=== PATIENT | female | born 1995 | race African-American/Black ===

== ENCOUNTER 2018-10-23 12:46 | Inpatient (IN) | payer OTHER ==
--- NOTE | 2018-10-23 13:06 | PDOC ---
History of Present Illness - General Chief Complaint: Back Pain Stated Complaint: LEFT FLANK PAIN Time Seen by Provider: 10/23/18 13:04 - History of Present Illness Initial Comments: 10/23/18 14:00 HPI: 23 y/o F with recently diagnosed stage 4 breast cancer with pulmonary and bony mets presenting with 5 days of left flank and back pain. She reports starting her first chemo infusion 1 week ago and started having back pain 2 days after. It came on suddenly and was initially improved with the percocet 5 that was prescribed by her oncologist Dr Elise Yang from [facility], however, 2 days ago the pain progressed and was no longer controlled with increased frequency of pain meds. Pain is worse with movement and also has a pleuritic component. Pain is persistent and dull at baseline but becomes intermittently sharp. She reprots the pain is severely impacting her sleep and functionality. She also report having dysuria with burning on urination and dark colored urine. She reports chills, nausea, constipation, and a foggy headache attributed to "chemo brain." No fevers, emesis, chest pain, SOB, palpitations. PMHx: as noted above ROS: as noted SHx: Denies Etoh, IVDA, tobacco use Allergies: NKDA Past History - Past Medical History Allergies/Adverse Reactions: Allergies Allergy/AdvReac Type Severity Reaction Status Date / Time No Known Allergies Allergy Verified 10/23/18 12:53 Home Medications: Ambulatory Orders NK [No Known Home Medication] 10/23/18 Asthma: Yes Cancer: Yes (lt breast) Cardiac Disorders: No COPD: No Diabetes: No HTN: No Seizures: No Thyroid Disease: No - Reproductive History (#): 2 Para: 1 Therapeutic (s) & number: No Spontaneous : 0 - Suicide/Smoking/Psychosocial Hx Smoking Status: No Smoking History: Never smoked Have you smoked in the past 12 months: No Number of Cigarettes Smoked Daily: 6 Information on smoking cessation initiated: No 'Breaking Loose' booklet given: 05/27/15 Hx Alcohol Use: No Drug/Substance Use Hx: No Substance Use Type: None Hx Substance Use Treatment: No Review of Systems - Review of Systems Comments:: 10/23/18 14:17 GENERAL/CONSTITUTIONAL: +chills. HEAD, EYES, EARS, NOSE AND THROAT: No change in vision. No ear pain or discharge. No sore throat. CARDIOVASCULAR: No chest pain or shortness of breath RESPIRATORY: No cough, wheezing, or hemoptysis. GASTROINTESTINAL: +nausea, constipation. no vomiting, diarrhea GENITOURINARY: +dysuria MUSCULOSKELETAL: + back pain. SKIN: No rash NEUROLOGIC: No headache, vertigo, loss of consciousness, or change in strength/ sensation. ENDOCRINE: No increased thirst. No abnormal weight change HEMATOLOGIC/LYMPHATIC: No anemia, easy bleeding, or history of blood clots. ALLERGIC/IMMUNOLOGIC: No hives or skin allergy. *Physical Exam - Vital Signs Last Vital Signs Temp Pulse Resp BP Pulse Ox 98.1 F 68 18 110/59 L 95 10/23/18 12:54 10/23/18 12:54 10/23/18 12:54 10/23/18 12:54 10/23/18 12:54 - Physical Exam Comments: 10/23/18 14:18 GENERAL: Awake, alert, and fully oriented, in moderate distress and unable to sit comfortbaly due to pain HEAD: No signs of trauma, normocephalic, atraumatic EYES: EOMI, sclera anicteric, conjunctiva clear ENT: Auricles normal inspection, hearing grossly normal, nares patent, oropharynx clear without exudates. Moist mucosa NECK: Normal ROM, supple, no lymphadenopathy, JVD, or masses LUNGS: No distress, speaks full sentences, clear to auscultation bilaterally CHEST: Left breast is large and firm with area of skin breakdown at the 1oclock position, nontender HEART: Regular rate and rhythm, normal S1 and S2, no murmurs, rubs or gallops, peripheral pulses normal and equal bilaterally. ABDOMEN: Soft, nontender, normoactive bowel sounds. No guarding, no rebound. No masses. No CVA tenderness MSK : no spinal bony TTP, Normal inspection, Normal range of motion, no edema. No clubbing or cyanosis. NEUROLOGICAL: Cranial nerves II through XII grossly intact. Normal speech, normal gait, no focal sensorimotor deficits SKIN: Warm, Dry, normal turgor, no rashes or lesions noted ED Treatment Course - LABORATORY CBC & Chemistry Diagram: 10/23/18 14:00 10/23/18 14:00 Medical Decision Making - Medical Decision Making 10/23/18 14:20 23 y/o F with recently diagnosed stage 4 breast cancer (02/2018) with pulmonary and bony mets presenting with 5 days of left flank and back pain associated with burning on urination, dark urine, and pleuritic back pain. DDx includes UTI , pyelonephritis, PE, malignant effusion, PNA. -CBC, CMP, UA, UCx, trops, BNP -EKG, CXR, renal US -4mg morphine, IVF 10/23/18 18:09 UA with concern for infection Will treat empirically for pyelonephritis in setting of flank pain and burning on urination with 1g ceftriaxone [facility] made aware of patient admission for IV abx management Will continue to treat pain 10/23/18 18:[address] Carmella Bernabe; waiting for callback regarding admitting attending 10/23/18 19:19 Spoke to oncall oncology attending at [facility] Dr Burk; will plan to admit for iv abx for at least 48hrs *DC/Admit/Observation/Transfer Diagnosis at time of Disposition: Pyelonephritis - Discharge Dispostion Condition at time of disposition: Stable Decision to Admit order: Yes - Referrals - Patient Instructions - Post Discharge Activity
[2018-10-23] MEDS ORDERED: morphine CARPU-JECT 4 MG/1 ML DISP.SYRIN IVPUSH ONE ×2 (13:44→17:38)
[2018-10-23] MEDS ORDERED: SODIUM CHLORIDE 1,000 ML IV STA (13:44)
[2018-10-23] MEDS ORDERED: morphine SULFATE 4 MG/ML VIAL ONE ×2 (14:14→17:47)
[2018-10-23 14:19] LABS: BASO % 0.3 % (0-2.0); EOS % 0.8 % (0-4.5); HEMATOCRIT 29.4 % (32.4-45.2); HEMOGLOBIN 10.1 GM/dL (10.7-15.3); LYMPH % 26.7 % (8-40); MCH 27.3 pg (25.7-33.7); MCHC 34.4 g/dl (32.0-36.0); MEAN CELL VOLUME 79.3 fl (80-96); MEAN PLT VOLUME 6.4 fl (7.5-11.1); MONO % 6.2 % (3.8-10.2); PLATELET COUNT 183 K/MM3 (134-434); RBC 3.71 M/mm3 (3.60-5.2); RDW 12.8 % (11.6-15.6); WHITE BLOOD COUNT 2.7 K/mm3 (4.0-10.0)
[2018-10-23 14:50] LABS: ALBUMIN 3.6 g/dl (3.4-5.0); ALK PHOS 307 U/L (45-117); ANION GAP 9 MMOL/L (8-16); BILIRUBIN,TOTAL 0.7 mg/dL (0.2-1); BLOOD UREA NITROGEN 10.7 mg/dL (7-18); CALCIUM 7.8 mg/dL (8.5-10.1); CHLORIDE 101 mmol/L (98-107); CO2 28 mmol/L (21-32); CREATININE 0.7 mg/dL (0.55-1.3); GLUCOSE,RANDOM 84 mg/dL (74-106); POTASSIUM 3.2 mmol/L (3.5-5.1); SGOT/AST 69 U/L (15-37); SGPT/ALT 61 U/L (13-61); SODIUM 138 mmol/L (136-145); TOT PROT 7.7 g/dl (6.4-8.2)
--- NOTE | 2018-10-23 15:13 | PDOC ---
Documentation entered by María Pendleton SCRIBE, acting as scribe for Juno Diego MD. Juno Diego MD: This documentation has been prepared by the Keerthi foster Brenda, SCRIBE, under my direction and personally reviewed by me in its entirety. I confirm that the documentation accurately reflects all work, treatment, procedures, and medical decision making performed by me. Attending Attestation - Resident Resident Name: JairoAdela - ED Attending Attestation I have performed the following: I have examined & evaluated the patient, The case was reviewed & discussed with the resident, I agree w/resident's findings & plan, Exceptions are as noted - HPI HPI: 10/23/18 14:41 The patient is a 23 year old female (), with a significant PMH of asthma and stage breast cancer with mets, who presents to the emergency department with severe left back/flank pain since Friday (10/19/18). As per patient, the pain was initially manageable while taking percocets accompanied by advil, given by oncologist, but notes that since Friday (10/21/18), the pain has been unbearable. She also notes that her pain is currently at a 6/10. But has reached 10/10 while at home. She also endorses dysuria and nausea, accompanied with heat flashes. The patient denies chest pain, shortness of breath, headache and dizziness. Denies fever, vomiting, diarrhea and constipation. Denies frequency, urgency and hematuria. Allergies: NKA Past surgical history: x2. PCP: Sherry Holguin M - Physicial Exam PE: 10/23/18 14:25 GENERAL: Awake, alert, and fully oriented, in no acute distress HEAD: No signs of trauma EYES: PERRLA, EOMI, sclera anicteric, conjunctiva clear ENT: Auricles normal inspection, hearing grossly normal, nares patent. Moist mucosa NECK: Normal ROM, supple, no lymphadenopathy, JVD, or masses LUNGS: Breath sounds equal, clear to auscultation bilaterally. No wheezes, and no crackles HEART: Regular rate and rhythm, normal S1 and S2, no murmurs, rubs or gallops ABDOMEN: (+)Left CVA tenderness to palpation. Soft, normoactive bowel sounds. No guarding, no rebound. No masses EXTREMITIES: Normal range of motion, no edema. No clubbing or cyanosis. No cords, erythema, or tenderness NEUROLOGICAL: Cranial nerves II through XII grossly intact. Normal speech, normal gait SKIN: Warm, Dry, normal turgor, no rashes or lesions noted. - Medical Decision Making 10/23/18 15:09 A portion of this note was written by my scribe, under my supervision. Vital Signs Temp Pulse Resp BP Pulse Ox 98.1 F 68 18 110/59 L 95 10/23/18 12:54 10/23/18 12:54 10/23/18 12:54 10/23/18 12:54 10/23/18 12:54 23 year old female with metastatic L breast cancer p/w left flank pain. Pt recently diagnosed with breast cancer and under treatment at [facility] Last week, received 1st dose of IV chemotherapy. Was supposed to be due to 2nd dose of IV chemotherapy. However, noted yesterday to today of worsening L flank pain as well as several days of dysuria. No fevers, chills. No nausea, vomiting, diarrhea. I am concerned for pyelonephritis, particularly in setting of recent chemotherapy. However, will need UA, PGU. If UA demonstrates no infection, should consider pulmonary embolism, particularly in setting of incomplete RBBB. Pain control and reassess. 10/23/18 19:13 CBC, BMP 10/23/18 14:00 10/23/18 14:00 CMP Sodium 138 mmol/L (136-145) 10/23/18 14:00 Potassium 3.2 mmol/L (3.5-5.1) L 10/23/18 14:00 Chloride 101 mmol/L (98-107) 10/23/18 14:00 Carbon Dioxide 28 mmol/L (21-32) 10/23/18 14:00 Anion Gap 9 MMOL/L (8-16) 10/23/18 14:00 BUN 10.7 mg/dL (7-18) 10/23/18 14:00 Creatinine 0.7 mg/dL (0.55-1.3) 10/23/18 14:00 Est GFR (CKD-EPI)AfAm 139.57 10/23/18 14:00 Est GFR (CKD-EPI)NonAf 120.42 10/23/18 14:00 Random Glucose 84 mg/dL (74-106) 10/23/18 14:00 Calcium 7.8 mg/dL (8.5-10.1) L 10/23/18 14:00 Total Bilirubin 0.7 mg/dL (0.2-1) 10/23/18 14:00 AST 69 U/L (15-37) H 10/23/18 14:00 ALT 61 U/L (13-61) 10/23/18 14:00 Alkaline Phosphatase 307 U/L (45-117) H 10/23/18 14:00 Troponin I < 0.02 ng/ml (0.00-0.05) 10/23/18 14:00 B-Natriuretic Peptide 33.6 pg/ml (5-125) 10/23/18 14:00 Total Protein 7.7 g/dl (6.4-8.2) 10/23/18 14:00 Albumin 3.6 g/dl (3.4-5.0) 10/23/18 14:00 Urine Test Results Urine Color Dk yellow 10/23/18 15:53 Urine Appearance Clear 10/23/18 15:53 Urine pH 6.5 (5.0-8.0) 10/23/18 15:53 Ur Specific [place] 1.024 (1.010-1.035) 10/23/18 15:53 Urine Protein 1+ (NEGATIVE) H 10/23/18 15:53 Urine Glucose (UA) Negative (NEGATIVE) 10/23/18 15:53 Urine Ketones 2+ (NEGATIVE) H 10/23/18 15:53 Urine Blood Negative (NEGATIVE) 10/23/18 15:53 Urine Nitrite Negative (NEGATIVE) 10/23/18 15:53 Urine Bilirubin 1+ (NEGATIVE) H 10/23/18 15:53 Ur Leukocyte Esterase 1+ (NEGATIVE) H 10/23/18 15:53 Ua positive. Will treat as pylenoephritis. Blood cultures and urine cultures. Ceftriaxone ordered. Case discussed with [facility] Dr. Burk. She states that patient does not need to be transferred. Will likely need 48 hours of IV antibiotics then switch to PO antibiotics and follow up as an outpatient to [facility]. 10/23/18 19:58 Admit patient. Heart Score/ECG Review #1 ECG reviewed & interpreted by me at: 14:10 10/23/18 15:09 NSR 58, no std/rodrigo, normal axis, normal intervals, incomplete RBBB, QTC 433 msec , nonspecific T wave abnormality.
[2018-10-23 17:19] LABS: URINE APPEARANCE CLEAR; URINE COLOR DK YELLOW; URINE GLUCOSE (UA) NEGATIVE (NEGATIVE)
[2018-10-23 17:20] LABS: URINE KETONE 2+ (NEGATIVE)
[2018-10-23 17:21] LABS: EPI CELLS 0.6 /HPF (0-5/HPF); PH,URINE 6.5 (5.0-8.0); URINE BACTERIA 63.3 /hpf (NEGATIVE); URINE LEUK ESTERASE 1+ (NEGATIVE); URINE NITRITE NEGATIVE (NEGATIVE); URINE PROTEIN 1+ (NEGATIVE); URINE RBC 5.1 /hpf (0-4); URINE UROBILINOGEN 4.0 E.U/dl mg/dL (0.2-1.0); URINE WBC 30.5 /hpf (0-5)
[2018-10-23 17:22] LABS: URINE BILIRUBIN 1+ (NEGATIVE)
[2018-10-23] MEDS ORDERED: CEFTRIAXONE 1 GM in DEXTROSE 5%-WATER - 100 ML IVPB ONE (19:29)
[2018-10-23] MEDS ORDERED: CEFTRIAXONE 1 GM/50 ML BAG ONE (19:35)
[2018-10-23] MEDS ORDERED: ACETAMINOPHEN 1000 MG/100 ML VIAL (NON FORMULARY) IVPB ONE (19:38)
[2018-10-23] MEDS ORDERED: KETOROLAC TROMETHAMINE 15 MG/ML VIAL IVPUSH ONE (19:38)
[2018-10-23] MEDS ORDERED: ACETAMINOPHEN INJECTION 100 ML IVPB ONE (19:45)
[2018-10-23] MEDS ORDERED: KETOROLAC TROMETHAMINE 15 MG/ML VIAL ONE (19:45)
[2018-10-23] MEDS: SODIUM CHLORIDE 1,000 ML IV SCH (20:30)
[2018-10-23] MEDS ORDERED: POTASSIUM CHLORIDE TABS 20 MEQ TABLET.ER (FP) PO ONE (23:03)
--- NOTE | 2018-10-23 23:31 | HP ---
CHIEF COMPLAINT: L back / flank pain PCP: HISTORY OF PRESENT ILLNESS: 23 yo F PMH asthma, recent diagnosis of breast ca ( 02/2018)with mets to bone presents to the ED with L sided back pain. The pt states this pain began on Friday. Since friday, she has been trying to aleviate the pain with percocet ( from her oncologist) and advil. This helped the pain initially, but pain continued to worsen. The pt states that the pain is sharp and feels like someone is "clawing " her back. The pt states that the pain gets worse when she moves. The pt states that she also has dysuria and has noticed hematuria since Friday. Pt states that she had her first chemotherapy last friday. she was supposed to have her second chemotherapy today, friday but was unable to go. Pt goes to [facility] for her cancer management and follows up with Dr. Clemente. The pt states she also endorses nausea, but has been taking ondansetron which helps her. ER course was notable for: (1) renal u/s negative for renal calculus / hydronephrosis (2) + UA (3)empiric ceftriaxone Recent Travel: denies PAST MEDICAL HISTORY: asthma, breast ca w/ metastasis PAST SURGICAL HISTORY: Social History: Smoking: Alcohol: Drugs: Family History: Paternal Grandmother had breast ca Allergies No Known Allergies Allergy (Verified 10/23/18 12:53) HOME MEDICATIONS: Home Medications Medication Instructions Recorded NK [No Known Home Medication] 10/23/18 REVIEW OF SYSTEMS CONSTITUTIONAL: Present: 5 pound weight gain Absent: fever, chills, diaphoresis, generalized weakness, malaise, loss of appetite, weight change HEENT: Absent: rhinorrhea, nasal congestion, throat pain, throat swelling, difficulty swallowing, mouth swelling, ear pain, eye pain, visual changes CARDIOVASCULAR: Present: lightheadedness Absent: chest pain, syncope, palpitations, irregular heart rate, peripheral edema RESPIRATORY: Absent: cough, shortness of breath, dyspnea with exertion, orthopnea, wheezing, stridor, hemoptysis GASTROINTESTINAL: Present: nausea Absent: abdominal pain, abdominal distension, vomiting, diarrhea, constipation , melena, hematochezia GENITOURINARY: Present: dysuria, hematuria, flank pain Absent: frequency, urgency, hesitancy, genital pain MUSCULOSKELETAL: Present: back pain Absent: myalgia, arthralgia, joint swelling, neck pain SKIN: Absent: rash, itching, pallor HEMATOLOGIC/IMMUNOLOGIC: Absent: easy bleeding, easy bruising, lymphadenopathy, frequent infections ENDOCRINE: Absent: unexplained weight gain, unexplained weight loss, heat intolerance, cold intolerance NEUROLOGIC: Absent: headache, focal weakness or paresthesias, dizziness, unsteady gait, seizure, mental status changes, bladder or bowel incontinence PSYCHIATRIC: Absent: anxiety, depression, suicidal or homicidal ideation, hallucinations. PHYSICAL EXAMINATION Vital Signs - 24 hr 10/23/18 10/23/18 10/23/18 12:54 19:00 21:21 Temperature 98.1 F 98.7 F Pulse Rate 68 Pulse Rate [ 76 65 Apical] Respiratory 18 18 Rate Blood Pressure 110/59 L Blood Pressure 124/64 107/65 [Right Arm] O2 Sat by Pulse 95 100 98 Oximetry (%) GENERAL: Awake, alert, and fully oriented, in no acute distress. HEAD: Normal with no signs of trauma. EYES: Pupils equal, round and reactive to light, extraocular movements intact, sclera anicteric, conjunctiva clear. No lid lag. EARS, NOSE, THROAT: oropharynx clear without exudates. Moist mucous membranes. NECK: Normal range of motion, supple without lymphadenopathy, JVD, or masses. LUNGS: Breath sounds equal, clear to auscultation bilaterally. No wheezes, and no crackles. No accessory muscle use. HEART: Regular rate and rhythm, normal S1 and S2, + murmur, rub or gallop. ABDOMEN: Soft, nontender, not distended, normoactive bowel sounds, no guarding, no rebound, no masses. MUSCULOSKELETAL: Normal range of motion at all joints. No bony deformities or tenderness. L CVA tenderness. UPPER EXTREMITIES: 2+ pulses, warm, well-perfused. No cyanosis. No clubbing. No peripheral edema. LOWER EXTREMITIES: 2+ pulses, warm, well-perfused. No calf tenderness. No peripheral edema. NEUROLOGICAL: Cranial nerves II-XII intact. Normal speech. Normal gait. SKIN: Warm, dry, normal turgor, no rashes or lesions noted Laboratory Last Values WBC 2.7 K/mm3 (4.0-10.0) L 10/23/18 14:00 RBC 3.71 M/mm3 (3.60-5.2) 10/23/18 14:00 Hgb 10.1 GM/dL (10.7-15.3) L 10/23/18 14:00 Hct 29.4 % (32.4-45.2) L D 10/23/18 14:00 MCV 79.3 fl (80-96) L 10/23/18 14:00 MCH 27.3 pg (25.7-33.7) 10/23/18 14:00 MCHC 34.4 g/dl (32.0-36.0) 10/23/18 14:00 RDW 12.8 % (11.6-15.6) D 10/23/18 14:00 Plt Count 183 K/MM3 (134-434) D 10/23/18 14:00 MPV 6.4 fl (7.5-11.1) L D 10/23/18 14:00 Absolute Neuts (auto) 1.8 K/mm3 (1.5-8.0) 10/23/18 14:00 Neutrophils % 66.0 % (42.8-82.8) 10/23/18 14:00 Lymphocytes % 26.7 % (8-40) 10/23/18 14:00 Monocytes % 6.2 % (3.8-10.2) 10/23/18 14:00 Eosinophils % 0.8 % (0-4.5) 10/23/18 14:00 Basophils % 0.3 % (0-2.0) 10/23/18 14:00 Nucleated RBC % 0 % (0-0) 10/23/18 14:00 Sodium 138 mmol/L (136-145) 10/23/18 14:00 Potassium 3.2 mmol/L (3.5-5.1) L 10/23/18 14:00 Chloride 101 mmol/L (98-107) 10/23/18 14:00 Carbon Dioxide 28 mmol/L (21-32) 10/23/18 14:00 Anion Gap 9 MMOL/L (8-16) 10/23/18 14:00 BUN 10.7 mg/dL (7-18) 10/23/18 14:00 Creatinine 0.7 mg/dL (0.55-1.3) 10/23/18 14:00 Est GFR (CKD-EPI)AfAm 139.57 10/23/18 14:00 Est GFR (CKD-EPI)NonAf 120.42 10/23/18 14:00 Random Glucose 84 mg/dL (74-106) 10/23/18 14:00 Calcium 7.8 mg/dL (8.5-10.1) L 10/23/18 14:00 Total Bilirubin 0.7 mg/dL (0.2-1) 10/23/18 14:00 AST 69 U/L (15-37) H 10/23/18 14:00 ALT 61 U/L (13-61) 10/23/18 14:00 Alkaline Phosphatase 307 U/L (45-117) H 10/23/18 14:00 Troponin I < 0.02 ng/ml (0.00-0.05) 10/23/18 14:00 B-Natriuretic Peptide 33.6 pg/ml (5-125) 10/23/18 14:00 Total Protein 7.7 g/dl (6.4-8.2) 10/23/18 14:00 Albumin 3.6 g/dl (3.4-5.0) 10/23/18 14:00 Urine Color Dk yellow 10/23/18 15:53 Urine Appearance Clear 10/23/18 15:53 Urine pH 6.5 (5.0-8.0) 10/23/18 15:53 Ur Specific [place] 1.024 (1.010-1.035) 10/23/18 15:53 Urine Protein 1+ (NEGATIVE) H 10/23/18 15:53 Urine Glucose (UA) Negative (NEGATIVE) 10/23/18 15:53 Urine Ketones 2+ (NEGATIVE) H 10/23/18 15:53 Urine Blood Negative (NEGATIVE) 10/23/18 15:53 Urine Nitrite Negative (NEGATIVE) 10/23/18 15:53 Urine Bilirubin 1+ (NEGATIVE) H 10/23/18 15:53 Urine Urobilinogen 4.0 e.u/dl mg/dL (0.2-1.0) H 10/23/18 15:53 Ur Leukocyte Esterase 1+ (NEGATIVE) H 10/23/18 15:53 Urine WBC (Auto) 30.5 /hpf (0-5) 10/23/18 15:53 Urine RBC (Auto) 5.1 /hpf (0-4) 10/23/18 15:53 Urine Casts (Auto) 19.20 /lpf (0-8) 10/23/18 15:53 U Epithel Cells (Auto) 0.6 /HPF (0-5/HPF) 10/23/18 15:53 Urine Bacteria (Auto) 63.3 /hpf (NEGATIVE) 10/23/18 15:53 Urine HCG, Qual Negative 10/23/18 15:17 CXR: 2 views of the chest have been submitted. There is evidence of a left effusion and left infiltrate. The left upper lobe and right lung are clear. The mediastinum is not widened. The bones and soft tissues are intact. Follow-up recommended. ASSESSMENT/PLAN: 23 yo F PMH of asthma and breast ca with mets presenting to ED w/ L sided flank pain, dysuria, and hematuria. Pt is admitted for pyelonephritis. L Flank pain possibly 2/2 Pylenonephritis vs bony mets -Pt endorses pain in L scapular region. - (+) UA -awaiting U Cx -CXRay: see above -awaiting CT chest -no leukocytosis, pt afebrile -c/w ceftriaxone -c/w IVF -Alk phos elevated 307, may be 2/2 bone mets -morphine for pain -Renal U/S negative for renal calculus or hydronephrosis Breast Ca -pt receiving Chemotherapy , last dose Friday last week. missed dose today -pt should f/[place] [facility]pt takes ondansetron at home, c/w for nausea F/E/N -NS 100mls /hr -Regular diet DVT ppx: Lovenox Dispo: admit to medicine floors to monitor Visit type - Emergency Visit Emergency Visit: Yes ED Registration Date: 10/23/18 Care time: The patient presented to the Emergency Department on the above date and was hospitalized for further evaluation of their emergent condition. - New Patient This patient is new to me today: Yes Date on this admission: 10/24/18 - Critical Care Critical Care patient: No ATTENDING PHYSICIAN STATEMENT I saw and evaluated the patient. I reviewed the resident's note and discussed the case with the resident. I agree with the resident's findings and plan as documented. SUBJECTIVE: OBJECTIVE: ASSESSMENT AND PLAN:
[2018-10-24] MEDS ORDERED: KETOROLAC TROMETHAMINE 10 MG TABLET PO SCH
--- NOTE | 2018-10-24 00:18 | PN ---
Teaching Attending Note Name of Resident: Nancie Cloud ATTENDING PHYSICIAN STATEMENT I saw and evaluated the patient. Chart, data, imaging reviewed. I reviewed the resident's note and discussed the case with the resident. I agree with the resident's findings and plan as documented. SUBJECTIVE: 23 yo woman with breast ca w/ bony mets diagnosed 03/17, [place] [facility] [place] first chemo last week, c/o left subscapular pain worse with inspiration, dysuria since this past friday. OBJECTIVE: Last Vital Signs Temp Pulse Resp BP Pulse Ox 98.7 F 65 18 107/65 98 10/23/18 21:21 10/23/18 21:21 10/23/18 19:00 10/23/18 21:21 10/23/18 21:21 gen- nad, aaox3 heent- at, nc neck supple cor-s1+s2+rrr chest -decreased breath sounds at left base abd- soft Abnormal Lab Results 10/23/18 10/23/18 10/23/18 14:00 14:00 15:53 WBC 2.7 L Hgb 10.1 L Hct 29.4 L D MCV 79.3 L MPV 6.4 L D Potassium 3.2 L Calcium 7.8 L AST 69 H Alkaline Phosphatase 307 H Urine Protein 1+ H Urine Ketones 2+ H Urine Bilirubin 1+ H Urine Urobilinogen 4.0 e.u/dl H Ur Leukocyte Esterase 1+ H cxr showed left pleural effusion ASSESSMENT AND PLAN: 23yo woman with breast cancer with bony mets s/p first round of chemo last week , w/ left subscapular pleuritic pain - I suspect this is secondary to underlying mets. Doubt pyelo as no CVA tenderness, however probable cystitis. Left pleural effusion likely from underlying malignancy. I suspect her leukopenia, anemia are secondary to malignancy/chemo. -med/surg -control pain- toradol+ morphine IV prn -urine culture -ceftriaxone -chest ct -ekg -obtain medical records from [facility] -dvt ppx- enoxaparin sc
[2018-10-24] MEDS ORDERED: KETOROLAC TROMETHAMINE 10 MG TABLET PO PRN (00:32)
[2018-10-24] MEDS: SODIUM CHLORIDE 1,000 ML IV SCH ×2 (00:36→21:15)
[2018-10-24] MEDS: MORPHINE SULFATE 2 MG/ML VIAL IVPUSH PRN ×5 (01:03→21:15)
[2018-10-24] MEDS ORDERED: ONDANSETRON *ODT* 4 MG TABLET SL ONE (02:45)
[2018-10-24 08:23] LABS: BASO % 0.4 % (0-2.0); HEMATOCRIT 30.2 % (32.4-45.2); HEMOGLOBIN 10.4 GM/dL (10.7-15.3); MCH 27.2 pg (25.7-33.7); MCHC 34.4 g/dl (32.0-36.0); MEAN PLT VOLUME 6.8 fl (7.5-11.1); MONO % 8.6 % (3.8-10.2); PLATELET COUNT 169 K/MM3 (134-434); RBC 3.82 M/mm3 (3.60-5.2); RDW 12.3 % (11.6-15.6); WHITE BLOOD COUNT 2.4 K/mm3 (4.0-10.0)
[2018-10-24 08:39] LABS: CALCIUM 7.9 mg/dL (8.5-10.1); CREATININE 0.6 mg/dL (0.55-1.3); MAGNESIUM 2.4 mg/dL (1.8-2.4); PHOSPHOROUS 2.1 mg/dL (2.5-4.9); POTASSIUM 4.1 mmol/L (3.5-5.1)
[2018-10-24] MEDS: ENOXAPARIN NA (PORCINE) 40 MG/0.4 ML DISP.SYRIN SQ SCH (10:15)
--- NOTE | 2018-10-24 11:15 | PN ---
Progress Note (short form) - Note Progress Note: c/o scapular pain. pain improved with morphine but does not last long enough. scale 9->4. is unaware of where her bone mets are. denies Cp, SOB, fever, chills , N/V/C/D Current Medications Generic Name Dose Route Start Last Admin Trade Name Freq PRN Reason Stop Dose Admin Enoxaparin Sodium 40 mg 10/24/18 10:00 10/24/18 10:15 Lovenox - SQ 40 mg DAILY RAMANA Administration Ceftriaxone Sodium 1 gm/ 50 mls @ 100 mls/hr 10/24/18 20:00 Dextrose IVPB Q24H RAMANA Sodium Chloride 1,000 mls @ 100 mls/hr 10/23/18 21:00 10/24/18 00:36 Normal Saline - IV 100 mls/hr ASDIR RAMANA Administration Morphine Sulfate 2 mg 10/23/18 23:08 10/24/18 08:07 Morphine Sulfate IVPUSH 2 mg Q6H PRN Administration PAIN LEVEL 7 - 10 Last Vital Signs Temp Pulse Resp BP Pulse Ox 101.1 F H 83 18 151/79 98 10/24/18 09:16 10/24/18 09:16 10/24/18 09:16 10/24/18 09:16 10/24/18 09:00 General NAD CV S1 S2 RRR no murmur/rub/gallop Lungs CTA B/L no wheezing/rales/rhonchi Abdomen soft +RLQ/LLQ/suprapubic tenderness no rebound or guarding no CVA tenderness Extremities L shoulder point tenderness over the scapular. ROM limited due to fear of pain CBCD WBC 2.4 K/mm3 (4.0-10.0) L 10/24/18 07:40 RBC 3.82 M/mm3 (3.60-5.2) 10/24/18 07:40 Hgb 10.4 GM/dL (10.7-15.3) L 10/24/18 07:40 Hct 30.2 % (32.4-45.2) L 10/24/18 07:40 MCV 79.0 fl (80-96) L 10/24/18 07:40 MCHC 34.4 g/dl (32.0-36.0) 10/24/18 07:40 RDW 12.3 % (11.6-15.6) 10/24/18 07:40 Plt Count 169 K/MM3 (134-434) 10/24/18 07:40 MPV 6.8 fl (7.5-11.1) L 10/24/18 07:40 CMP Sodium 139 mmol/L (136-145) 10/24/18 07:40 Potassium 4.1 mmol/L (3.5-5.1) 10/24/18 07:40 Chloride 106 mmol/L (98-107) 10/24/18 07:40 Carbon Dioxide 26 mmol/L (21-32) 10/24/18 07:40 Anion Gap 8 MMOL/L (8-16) 10/24/18 07:40 BUN 9.0 mg/dL (7-18) 10/24/18 07:40 Creatinine 0.6 mg/dL (0.55-1.3) 10/24/18 07:40 Calcium 7.9 mg/dL (8.5-10.1) L 10/24/18 07:40 Total Bilirubin 0.7 mg/dL (0.2-1) 10/23/18 14:00 AST 69 U/L (15-37) H 10/23/18 14:00 ALT 61 U/L (13-61) 10/23/18 14:00 Alkaline Phosphatase 307 U/L (45-117) H 10/23/18 14:00 Total Protein 7.7 g/dl (6.4-8.2) 10/23/18 14:00 Albumin 3.6 g/dl (3.4-5.0) 10/23/18 14:00 Assessment and plan 23yo F wtih breast ca with bone mets started chemo last week presenting with L subscapular pain and dysuria for 6 days and found to be septic due to UTI 1. Sepsis due to UTI and questionable PNA- Tm 101.1 with leukopenia. Ucx is negative for infection but patient is very tender and symptomatic. CT chest done to evaluate for infiltrate. on ceftriaxone day2. cont IVF. renal u/s negative for pyleo. will obtain Sputum Cx, GC/Chlamydia. incentive spirometer 2. Shoulder pain- could be referred from pleural effusion vs bone mets. pt is unaware where the mets are located. will see if anything is seen on CT. can get dedicated Xray if pain persists. will adjust morphine to Q4H for adequate pain relief 3. Hypokalemia- resolved 4. Hypophosphatemia- neutraphos 5. Elevated Alk phos- likely due to bone mets. do not need to image the liver at this time 6. Breast Ca- diagnosed 02/2018 and just completed first chemo cycle. does not have a port placed. being followed at [facility] [place] 7. leukopenia and anemia- no signs of bleeding. likely due to chemo. will monitor at this time 8. DVT ppx- lovenox Visit type - Emergency Visit Emergency Visit: Yes ED Registration Date: 10/23/18 Care time: The patient presented to the Emergency Department on the above date and was hospitalized for further evaluation of their emergent condition. - New Patient This patient is new to me today: Yes Date on this admission: 10/24/18 - Critical Care Critical Care patient: No - Discharge Referral Referred to [facility] Med [facility].C[facility] No
[2018-10-24] MEDS: ACETAMINOPHEN 325 MG TABLET (FP) PO PRN ×2 (11:27→17:34)
[2018-10-24] MEDS ORDERED: NAPH,MB-DB/K PH,MBDB POWDER PACKET PO ONE (12:57)
[2018-10-24] MEDS ORDERED: cefTRIAXone SODIUM 1 GM VIAL ONE (20:30)
[2018-10-24] MEDS ORDERED: DEXTROSE 5%-WATER - 50 ML IVPB ONE (20:30)
[2018-10-24] MEDS: CEFTRIAXONE 1 GM in DEXTROSE 5%-WATER - 50 ML IVPB SCH (20:34)
[2018-10-25] MEDS: MORPHINE SULFATE 2 MG/ML VIAL IVPUSH PRN ×4 (02:33→20:36)
[2018-10-25] MEDS: ACETAMINOPHEN 325 MG TABLET (FP) PO PRN ×3 (04:11→16:24)
[2018-10-25 07:53] LABS: BASO % 0.4 % (0-2.0); EOS % 1.2 % (0-4.5); HEMATOCRIT 27.8 % (32.4-45.2); HEMOGLOBIN 9.7 GM/dL (10.7-15.3); LYMPH % 25.1 % (8-40); MCH 27.2 pg (25.7-33.7); MCHC 34.8 g/dl (32.0-36.0); MEAN CELL VOLUME 78.2 fl (80-96); MEAN PLT VOLUME 6.6 fl (7.5-11.1); MONO % 12.7 % (3.8-10.2); NEUT % 60.6 % (42.8-82.8); PLATELET COUNT 125 K/MM3 (134-434); RBC 3.56 M/mm3 (3.60-5.2); RDW 12.6 % (11.6-15.6); WHITE BLOOD COUNT 2.1 K/mm3 (4.0-10.0)
[2018-10-25 08:14] LABS: BILIRUBIN,TOTAL 0.4 mg/dL (0.2-1); BLOOD UREA NITROGEN 4.6 mg/dL (7-18); CALCIUM 7.7 mg/dL (8.5-10.1); CREATININE 0.5 mg/dL (0.55-1.3); PHOSPHOROUS 2.3 mg/dL (2.5-4.9); POTASSIUM 3.7 mmol/L (3.5-5.1); TOT PROT 6.6 g/dl (6.4-8.2)
[2018-10-25] MEDS: ENOXAPARIN NA (PORCINE) 40 MG/0.4 ML DISP.SYRIN SQ SCH (10:19)
--- NOTE | 2018-10-25 10:48 | EKG ---
Test Reason : Blood Pressure : / mmHG Vent. Rate : 058 BPM Atrial Rate : 058 BPM P-R Int : 146 ms QRS Dur : 116 ms QT Int : 442 ms P-R-T Axes : 037 -02 020 degrees QTc Int : 433 ms SINUS BRADYCARDIA INCOMPLETE RIGHT BUNDLE BRANCH BLOCK NONSPECIFIC T WAVE ABNORMALITY ABNORMAL ECG WHEN COMPARED WITH ECG OF 17-JUN-2010 15:44, NO SIGNIFICANT CHANGE WAS FOUND Confirmed by XANDER VILLALBA MD ([id number]) on 10/25/2018 10:48:28 AM Referred By: Confirmed By:XANDER VILLALBA MD
--- NOTE | 2018-10-25 11:37 | PN ---
Teaching Attending Note Name of Resident: Mandy Ortiz ATTENDING PHYSICIAN STATEMENT I saw and evaluated the patient. I reviewed the resident's note and discussed the case with the resident. I agree with the resident's findings and plan as documented. SUBJECTIVE:c/o urinary incontinence. states the flank pain is much better but still has some residual pain. today is pointing more to mid-axillary pain. appetite improved. denies Cp, SOB, fever, chills, N/v/C/D pt does not have a port OBJECTIVE: Last Vital Signs Temp Pulse Resp BP Pulse Ox 98.8 F 78 18 136/80 100 10/25/18 10:00 10/25/18 10:00 10/25/18 10:00 10/25/18 10:00 10/25/18 09:00 General NAD CV S1 s2 RRR no murmur/rub/gallop lungs CTA B/L no wheezing/rales/rhonchi Abdomen soft NT/ND no suprapubic pain or distention Extremities no bone point tenderness along the spine. mild tenderness mid- axillary mid-thoracic area but unable to ascertain if over the ribs or muscular area. no sensory deficits along the thoracic dermatomes. no bone point tenderness over the scapula. good ROM of the L shoulder on passive and active movement ASSESSMENT AND PLAN: 23yo F wtih breast ca with bone mets started chemo last week presenting with L subscapular pain and dysuria for 6 days and found to be septic due to UTI 1. Sepsis with suspected discitis?- Tm 100.2. with persistent leukopenia. all cx report as normal and pt clinically looks improved with ceftriaxone however cx are all negative. pt now endorsing urinary incontinence and has known bone mets but does not know where. will get MRI of thoracic and lumbar spine to look for discitis or abscess. called ID and discussed the case. viviane get oncology on board and reach out to her oncologist for collateral information. 2. Shoulder pain- could be referred from pleural effusion vs bone mets. now resolved. will hold off on imaging of the shoulder and obtain collateral information 3. Hypokalemia- resolved 4. Hypophosphatemia- resolved 5. Elevated Alk phos- likely due to bone mets. do not need to image the liver at this time 6. Breast Ca with bone and liver mets- diagnosed 02/2018 and just completed first chemo cycle. does not have a port placed. being followed at [facility] [place]. will reach out to them 7. leukopenia and anemia- no signs of bleeding. likely due to chemo. will monitor at this time 8. DVT ppx- lovenox
--- NOTE | 2018-10-25 12:40 | PN ---
Progress Note (short form) - Note Progress Note: ID consult dictated imp/reccd 23 yo female with metastatic breast cancer-lung and sternum diagnosed in February 2018 now under care [place] [facility] s/p chemo 10/16- carboplatin, gemicitibine, zolendronate she was her oncologist on Friday with complaints of right subscapular pain pain continued to worsen at home she is not sure if she had fevers, no thermometer, no a/c felt hot had some dysuria noted that mainly at night she is having difficulty with her urination, leaking and dribbling no fecal incontinence no senosry deficits on admission had pyuria was started on ceftriaxone (not neutropenic) tmax was [address] with pulmonary masses and large breast mass fevers leukopenia ?urinary incontinence metastatic breast ca s/p chemo agree with MRI to evaluate incontinence continue ceftriaxone if she spikes reculture and switch to zosyn fevers may be secondary to tumor necrosis after chemo currently afebrile and looks well Problem List - Problems (1) Fever Code(s): R50.9 - FEVER, UNSPECIFIED (2) Leukopenia due to antineoplastic chemotherapy Code(s): D70.1 - AGRANULOCYTOSIS SECONDARY TO CANCER CHEMOTHERAPY; T45.1X5A - ADVERSE EFFECT OF ANTINEOPLASTIC AND IMMUNOSUP DRUGS, INIT (3) Metastatic breast cancer Code(s): C50.919 - MALIGNANT NEOPLASM OF UNSP SITE OF UNSPECIFIED FEMALE BREAST (4) Urinary incontinence Code(s): R32 - UNSPECIFIED URINARY INCONTINENCE
--- NOTE | 2018-10-25 14:16 | PN ---
Physical Exam: SUBJECTIVE: Patient seen and examined at bedside. Still with dysuria however improving hematuria. Discussed case w/ [facility] on-call physician: Pt with poorly differentiated invasive ductal CA dx 1 yr ago. Has had mammo, bx February 2018. Was found to have 6cm breast mass. Has known metastatic dz to lung (many nodules, up to 2.8cm max), sternum, w/ axillary LN. Was started on carboplatin gemcitabine 1st dose 10/16/18. Also at time was started on zolendronic acid. Last labs at [facility] at time showed WBC 3.6, neutrophil ct 2300, hb 9.9. Last chem WNL. Pt's oncologist is Dr. Collins. OBJECTIVE: Vital Signs Period Temp Pulse Resp BP Sys/Mendoza Pulse Ox Last 24 Hr 98.8 F-100.2 F 69-78 18-18 115-144/65-89 98-100 GENERAL: The patient is AAOx 3. in NAD HEAD: Normal with no signs of trauma. EYES: PERRL, extraocular movements intact, sclera anicteric, conjunctiva clear. ENT: Ears normal, nares patent, oropharynx clear without exudates, moist mucous membranes. NECK: Trachea midline, supple. LUNGS: +poor inspiratory effort, decreased breath sounds HEART: Regular rate and rhythm, S1, S2 without murmur, rub or gallop. ABDOMEN: Soft, nontender, nondistended, normoactive bowel sounds EXTREMITIES: 2+ pt pulses, warm, well-perfused, no edema. MSK: +TTP over L scapula, R a/c NEUROLOGICAL: Cranial nerves II through XII grossly intact. PSYCH: Normal mood, normal affect. SKIN: Warm, dry, normal turgor Laboratory Results - last 24 hr 10/25/18 10/25/18 07:17 07:17 WBC 2.1 L RBC 3.56 L Hgb 9.7 L Hct 27.8 L MCV 78.2 L MCH 27.2 MCHC 34.8 RDW 12.6 Plt Count 125 L D MPV 6.6 L Absolute Neuts (auto) 1.2 L Neutrophils % 60.6 Lymphocytes % 25.1 D Monocytes % 12.7 H Eosinophils % 1.2 Basophils % 0.4 Nucleated RBC % 0 Sodium 138 Potassium 3.7 Chloride 108 H Carbon Dioxide 25 Anion Gap 6 L BUN 4.6 L Creatinine 0.5 L Est GFR (CKD-EPI)AfAm 155.90 Est GFR (CKD-EPI)NonAf 134.52 Random Glucose 90 Calcium 7.7 L Phosphorus 2.3 L Total Bilirubin 0.4 AST 110 H ALT 94 H Alkaline Phosphatase 390 H Total Protein 6.6 Albumin 3.0 L ASSESSMENT/PLAN: 23 y/o F wtih breast ca with bone and lung mets who started chemo last week and presented with L subscapular pain and dysuria for 6 days and was found to be septic due to UTI. #Fever of unknown origin- improving #sepsis 2/2 UTI -possible source of infection includes UA, and with dysuria however need to check imaging of spine for discitis, abscess. also ucx, blood cx (-) -w new onset incontinence -f/u MRI lumbar spine, thoracic spine -c/w rocephin for now. if spikes temp, will need to re-culture and switch to zosyn -ID: Dr. Solis #elevated ALP -likely 2/2 bone mets #metastatic breast CA #Leukopenia likely chemo-induced #anemia likely chemo-induced -c/t monitor -with mild neutropenia - 1200 -d/w [facility] -follow onc recs #Thrombocytopenia -may also be 2/2 CA, partially dilutional -cont to monitor for now #F/E/N IV NS 100 cc/hr continue to follow lytes neutropenic diet #PPX DVT: lovenox #Dispo cont'd monitoring on med-surg Visit type - Emergency Visit Emergency Visit: No - New Patient This patient is new to me today: No - Critical Care Critical Care patient: No
--- NOTE | 2018-10-25 15:47 | CONS ---
DATE OF CONSULTATION: DATE OF DICTATION: 10/25/2018 REQUESTED BY: Hospitalist service. This is a 23-year-old woman. She was admitted on the when she presented to the emergency room complaining of left scapular pain that has been worsening over the course of the last week. She has a diagnosis of metastatic breast cancer and has just started chemotherapy October 16 with her oncologist at [facility]. She had chemo on Friday. She saw her oncologist on Friday, reported she was having some pain, which was felt to be attributable to her malignancy and she was prescribed some Percocet. The pain worsened. She came to the emergency room. She notes that she has had some discomfort on urination. She denies any fevers at home but states that she does not have a thermometer and her house had no air conditioning, and she felt hot. She denies any chills. She has had no vomiting, chest pain, or abdominal pain. This pain is mainly located to her left upper back. She denies any falls. Her past medical history is notable for the metastatic cancer. She was diagnosed actually in February but just sought care recently and has received her 1st cycle of chemo. She was diagnosed February 2018. Surgical history is notable for section. SOCIAL HISTORY: She has 2 children who are 5 and 8, two boys, and she lives . There is no history of alcohol or substance use. Of note, she is not sexually active. She has no known drug allergies. She is taking some Percocet at home. FAMILY HISTORY: She notes that she had a grandmother with breast cancer, otherwise no malignancy history. She is aware that she has cancer in both her bones and her lung. She denies any vomiting, any diarrhea. She does note that at nighttime she has trouble with urinary incontinence and is leaking and dribbling and this has been over the last 1 week. She denies any fecal incontinence. She denies any loss of sensation. PHYSICAL EXAMINATION: Vital Signs: On admission, she had no fever. She then had a temperature of 101.1 on the . Since then, her T-max has been 100.2, today she is 98.9. Her pulses is 69. Blood pressure 115/65. Respiratory rate is 18. She is saturating 100%. General: She is not toxic appearing. HEENT: Normocephalic. Eyes are anicteric. Neck: Supple. Lungs: Diminished breath sounds at the bases. Chest: She has a large left breast mass with an open ulceration on the lateral side. Abdomen: Soft, nontender. She has no palpable pain on exam. She has no CVA tenderness. She has no lumbar pain. Skin: She has no rash. Extremities: Without edema. White count is 2.1, with an ANC of 1.2, hemoglobin 9.7, platelets 125. BUN 4.6, creatinine 0.5. AST 110, ALT 94, alkaline phosphatase of 390. Urinalysis has 1+ leukocytes with 30 white cells, and cultures at 24 hours are negative. CAT scan of the chest reveals a large left breast mass with a 4-cm left axillary node and multiple bilateral pulmonary masses. She has no infiltrate and she has partial erosion of the left side of the upper third of the sternum. In summary, this is a 25-year-old woman with metastatic breast cancer, with some low-grade fevers, leukopenia, possible urinary incontinence, metastatic breast cancer, status post chemo approximately 10 days ago. I would agree with MRI to evaluate the incontinence and flank pain she is having. Continue ceftriaxone. If she spikes, I would re-culture and switch to Zosyn. Her fever may, as well, be secondary to tumor necrosis after chemo, given the large tumor burden. Currently she is afebrile and looks well. The patient was discussed with Oncology as well as the hospitalist service. ALYCIA RAO M.D. [id number]
[2018-10-25] MEDS ORDERED: cefTRIAXone SODIUM 1 GM VIAL ONE (20:17)
[2018-10-25] MEDS ORDERED: DEXTROSE 5%-WATER - 50 ML IVPB ONE (20:17)
[2018-10-25] MEDS: CEFTRIAXONE 1 GM in DEXTROSE 5%-WATER - 50 ML IVPB SCH (20:20)
--- NOTE | 2018-10-25 22:16 | CONSULT ---
Consult Consult Specialty:: Oncology Referred by:: Medicine Reason for Consultation:: Recent chemotherapy - History of Present Illness Chief Complaint: Fever after chemotherapy History of Present Illness: Patient with recently diagnosed locally advanced / metastatic breast cancer - started chemotherapy first cycle 9 days ago - began experiencing pain flank 2 days prior to presentation, and more recently fever, and dysuria. Pyuria on presentation, started empirically antibiotics. Not neutropenic. Felling well now - pain resolved. - History Source History Provided By: Patient, Medical Record Limitations to Obtaining History: No Limitations - Past Medical History Pulmonary: Yes: Asthma (last attack 6 yrs ago, not on any meds currently) ...LMP: 05/10/14 ...: No - Past Surgical History Past Surgical History: Yes: - Alcohol/Substance Use Hx Alcohol Use: No History of Substance Use: reports: None - Smoking History Smoking history: Never smoked Have you smoked in the past 12 months: No Aproximately how many cigarettes per day: 6 - Social History History of Recent Travel: No Home Medications - Allergies Allergies/Adverse Reactions: Allergies Allergy/AdvReac Type Severity Reaction Status Date / Time No Known Allergies Allergy Verified 10/23/18 12:53 - Home Medications Home Medications: Ambulatory Orders Ondansetron [Zofran -] 10/24/18 Family Disease History - Family Disease History Family Disease History: Other: Grandparent (paternal GM - hypertension), Father (hypertension) Physical Exam Vital Signs: Vital Signs Temperature 99.2 F 10/25/18 17:00 Pulse Rate 112 H 10/25/18 17:00 Respiratory Rate 20 10/25/18 17:00 Blood Pressure 140/95 10/25/18 17:00 O2 Sat by Pulse Oximetry (%) 100 10/25/18 09:00 Constitutional: Yes: Well Nourished, No Distress, Calm HENT: Yes: Normocephalic Neck: Yes: Supple, Trachea Midline Cardiovascular: Yes: Regular Rate and Rhythm, S1, S2. No: Gallop, Murmur Respiratory: Yes: Regular, CTA Bilaterally Gastrointestinal: Yes: Normal Bowel Sounds, Soft. No: Ascites Renal/: No: CVA Tenderness - Left, CVA Tenderness - Right Breast(s): Yes: Left, Mass (Induration L breast c/w diagnosis), Skin Changes Musculoskeletal: No: Back Pain, Joint Swelling, Muscle Weakness Edema: No Neurological: Yes: Alert, Oriented ...Motor Strength: WNL Psychiatric: Yes: Alert, Oriented. No: Agitated Labs: CBC, BMP 10/25/18 07:17 10/25/18 07:17 Assessment/Plan Recently diagnosed metastatic (lung lesions, skeletal lesions, large primary mass L breast) breast cancer - reportedly triple negative - started cytotoxic chemotherapy circa 10/17 (Carboplat/Gemcitabine) - now with unexplained fever, L flank/back pain, and pyuria (culture negative), empirically treated for urosepsis. Of note, NOT neutropenic - i.e. protocol treatment for FN not appropriate here. Fever local pain possible non-specific tumor response to chemotherapy. Would closely monitor for now. Unclear if she received prophylactic G-CSF, but may still not have reached neutrophil terri - daily CBC/diff. Will follow with you. Microcytic anemia noted - screen for iron deficiency.
[2018-10-26] MEDS: ACETAMINOPHEN 325 MG TABLET (FP) PO PRN ×4 (01:10→23:44)
[2018-10-26] MEDS: MORPHINE SULFATE 2 MG/ML VIAL IVPUSH PRN ×6 (01:10→23:44)
[2018-10-26] MEDS: SODIUM CHLORIDE 1,000 ML IV SCH ×2 (05:46→12:53)
[2018-10-26 07:45] LABS: ALBUMIN 2.8 g/dl (3.4-5.0); BILIRUBIN,TOTAL 0.5 mg/dL (0.2-1); BLOOD UREA NITROGEN 4.8 mg/dL (7-18); CALCIUM 7.7 mg/dL (8.5-10.1); CREATININE 0.5 mg/dL (0.55-1.3); PHOSPHOROUS 2.6 mg/dL (2.5-4.9); POTASSIUM 3.7 mmol/L (3.5-5.1); TOT PROT 6.6 g/dl (6.4-8.2)
[2018-10-26 07:51] LABS: BASO % 0.5 % (0-2.0); EOS % 1.6 % (0-4.5); HEMATOCRIT 27.4 % (32.4-45.2); HEMOGLOBIN 9.5 GM/dL (10.7-15.3); LYMPH % 29.5 % (8-40); MCH 27.3 pg (25.7-33.7); MCHC 34.6 g/dl (32.0-36.0); MEAN CELL VOLUME 78.8 fl (80-96); MEAN PLT VOLUME 6.7 fl (7.5-11.1); MONO % 18.2 % (3.8-10.2); NEUT % 50.2 % (42.8-82.8); PLATELET COUNT 97 K/MM3 (134-434); RBC 3.48 M/mm3 (3.60-5.2); RDW 12.3 % (11.6-15.6)
[2018-10-26 09:43] LABS: WHITE BLOOD COUNT 1.6 K/mm3 (4.0-10.0)
[2018-10-26] MEDS: ENOXAPARIN NA (PORCINE) 40 MG/0.4 ML DISP.SYRIN SQ SCH (10:16)
--- NOTE | 2018-10-26 11:08 | PN ---
Progress Note (short form) - Note Progress Note: alert and ambulating in the halls wearing a mask pain unchanged no fevers now reports she has some prior blood discharge when she wiped herself after urinating that has resolved still "dribbling" at night no sex in over 2 years Vital Signs Period Temp Pulse Resp BP Sys/Mendoza Pulse Ox Last 24 Hr 98.6 F-99.2 F 61-112 18-20 115-140/65-95 no thrush cor-rrr lungs clear abd soft,nt ext no edema CBC, BMP 10/26/18 06:50 10/26/18 06:50 Microbiology 10/23/18 17:50 Blood - Peripheral Venous Blood Culture - Preliminary NO GROWTH OBTAINED AFTER 48 HOURS, INCUBATION TO CONTINUE FOR 3 DAYS. 10/23/18 17:50 Blood - Peripheral Venous Blood Culture - Preliminary NO GROWTH OBTAINED AFTER 48 HOURS, INCUBATION TO CONTINUE FOR 3 DAYS. 10/23/18 15:17 Urine - Urine Clean Catch Urine Culture - Final NO GROWTH OBTAINED a/p now neutropenic secondary to chemo but no longer febrile-?neupogen- would ask hematology pain unchanged ?cystitis- day #4 rocephin- reports improvement- metastatic breast cancer on chemo on ceftriaxone day Problem List - Problems (1) Fever Code(s): R50.9 - FEVER, UNSPECIFIED (2) Leukopenia due to antineoplastic chemotherapy Code(s): D70.1 - AGRANULOCYTOSIS SECONDARY TO CANCER CHEMOTHERAPY; T45.1X5A - ADVERSE EFFECT OF ANTINEOPLASTIC AND IMMUNOSUP DRUGS, INIT (3) Metastatic breast cancer Code(s): C50.919 - MALIGNANT NEOPLASM OF UNSP SITE OF UNSPECIFIED FEMALE BREAST (4) Urinary incontinence Code(s): R32 - UNSPECIFIED URINARY INCONTINENCE
[2018-10-26 11:40] LABS: ANISOCYTOSIS 1+; MACROCYTOSIS 0; OVALOCYTE 1+; PLATELET ESTIMATE DECREASED
[2018-10-26] MEDS ORDERED: DOCUSATE SODIUM 100 MG CAPSULE (FP) PO ONE ×2 (13:45→14:00)
[2018-10-26] MEDS ORDERED: DOCUSATE SODIUM 100 MG CAPSULE (FP) PO PRN (14:39)
[2018-10-26] MEDS: BACITRACIN 15 GM TUBE TOPICAL OINTMENT TP SCH (15:22)
--- NOTE | 2018-10-26 16:01 | PN ---
Teaching Attending Note Name of Resident: Nancie Cloud ATTENDING PHYSICIAN STATEMENT I saw and evaluated the patient. I reviewed the resident's note and discussed the case with the resident. I agree with the resident's findings and plan as documented. SUBJECTIVE:some nausea with eating today. states she has not had BM since arrival. continues to have urinary incontinence. also has scapular pain and today is pointing to just below her scapula. deneis Cp, SOB, fever, chills, N/v/ c/D OBJECTIVE: Last Vital Signs Temp Pulse Resp BP Pulse Ox 99.4 F 70 18 140/70 100 10/26/18 14:00 10/26/18 14:00 10/26/18 14:00 10/26/18 14:00 10/25/18 09:00 General NAD CV S1 s2 RRR no murmur/rub/gallop lungs CTA B/L no wheezing/rales/rhonchi Abdomen soft NT/ND no suprapubic pain or distention Extremities no pain on palpation on the whole L side of her back and mid axillary line. ASSESSMENT AND PLAN: 23yo F wtih breast ca with bone mets started chemo last week presenting with L subscapular pain and dysuria for 6 days and found to be septic due to UTI 1. Sepsis with suspected discitis?- afebrile and now neutropenic. overall improved since arrival but no source. awaiting MRI to r/o discitis or some type of bone infection as is unknown what bone mets she has. on empiric Ceftriaxone at this time. ID on board 2. Shoulder pain- could be referred from pleural effusion vs bone mets. now seems to below the scapula. overall improved. 3. constipation- start stool softeners and miralax 4. Hypokalemia- resolved 5. Hypophosphatemia- resolved 6. Elevated Alk phos- likely due to bone mets. do not need to image the liver at this time 7. 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 does not have a port placed. being followed at [facility] [place]. they are aware of her hospitalized at this time. last WBC 3.6, PMN 2.3 Hgb 9.9 8. leukopenia and anemia- no signs of bleeding. likely due to chemo. will monitor at this time. neutropenic precautions 9. DVT ppx- lovenox
--- NOTE | 2018-10-26 16:55 | PN ---
Physical Exam: SUBJECTIVE: Patient seen and examined at bedside. Pt states she is feeling better and that her dysuria is improving. Pt states she still has the subscapular pain that worsens when she breathes or talks and how this is negatively impacting her quality of life. OBJECTIVE: Vital Signs Period Temp Pulse Resp BP Sys/Mendoza Pulse Ox Last 24 Hr 98.5 F-99.4 F 61-112 18-20 131-140/70-95 GENERAL: The patient is awake, alert, and fully oriented, in no acute distress. NECK: Trachea midline, full range of motion, supple. LUNGS: Breath sounds equal, clear to auscultation bilaterally, no wheezes, no crackles, no accessory muscle use. HEART: Regular rate and rhythm, S1, S2 systolic murmur at LSB, rub or gallop. ABDOMEN: Soft, nontender, nondistended, normoactive bowel sounds, no guarding EXTREMITIES: 2+ pulses, warm, well-perfused, no edema. SKIN: Warm, dry, normal turgor, no rashes or lesions noted Laboratory Results - last 24 hr 10/26/18 10/26/18 10/26/18 06:50 06:50 06:50 WBC 1.6 L* RBC 3.48 L Hgb 9.5 L Hct 27.4 L MCV 78.8 L MCH 27.3 MCHC 34.6 RDW 12.3 Plt Count 97 L D MPV 6.7 L Absolute Neuts (auto) 0.8 L Neutrophils % 50.2 Neutrophils % (Manual) 53.0 Band Neutrophils % 0.0 Lymphocytes % 29.5 Lymphocytes % (Manual) 38.0 Monocytes % 18.2 H Monocytes % (Manual) 8 Eosinophils % 1.6 Eosinophils % (Manual) 0.0 Basophils % 0.5 Basophils % (Manual) 0.0 Myelocytes % (Man) 0 Promyelocytes % (Man) 0 Blast Cells % (Manual) 0 Nucleated RBC % 0 Metamyelocytes 0 Hypochromia 0 Platelet Estimate Decreased Polychromasia 0 Poikilocytosis 1+ Anisocytosis 1+ Microcytosis 1+ Macrocytosis 0 Ovalocytes 1+ Sodium 141 Potassium 3.7 Chloride 110 H Carbon Dioxide 25 Anion Gap 6 L BUN 4.8 L Creatinine 0.5 L Est GFR (CKD-EPI)AfAm 155.90 Est GFR (CKD-EPI)NonAf 134.52 Random Glucose 81 Calcium 7.7 L Phosphorus 2.6 Magnesium 2.0 Iron 28 L TIBC 255 Iron Saturation 10 L Unsaturated IBC 227 Ferritin 125.1 Total Bilirubin 0.5 AST 114 H ALT 110 H Alkaline Phosphatase 431 H Total Protein 6.6 Albumin 2.8 L Current Medications Acetaminophen (Tylenol -) 650 mg PO Q6H PRN PRN Reason: fever Last Admin: 10/26/18 15:49 Dose: 650 mg Bacitracin (Bacitracin -) 1 applic TP DAILY [facility] Last Admin: 10/26/18 15:22 Dose: 1 applic Docusate Sodium (Colace -) 300 mg PO HS RAMANA Enoxaparin Sodium (Lovenox -) 40 mg SQ DAILY [facility] Last Admin: 10/26/18 10:16 Dose: 40 mg Ceftriaxone Sodium 1 gm/ (Dextrose) 50 mls @ 100 mls/hr IVPB Q24H [facility] Last Admin: 10/25/18 20:20 Dose: 100 mls/hr Sodium Chloride (Normal Saline -) 1,000 mls @ 100 mls/hr IV ASDIR [facility] Last Admin: 10/26/18 12:53 Dose: 100 mls/hr Morphine Sulfate (Morphine Sulfate) 2 mg IVPUSH Q4H PRN PRN Reason: PAIN LEVEL 7 - 10 Last Admin: 10/26/18 15:51 Dose: 2 mg Polyethylene Glycol (Miralax (For Daily Use) -) 17 gm PO BID [facility] CT Chest: Impression: 12.3 x 12.3 x 9.7 cm left breast mass lesion. Adjacent subcutaneous stranding is noted. Multiple bilateral pulmonary nodules/masses. Left axillary lymphadenopathy. Bilateral internal mammary chain lymphadenopathy. An osteolytic lesion is noted involving the upper third of the sternal body. The thymus demonstrates mild nonspecific thickening and multiple punctate calcifications. Correlate with close follow-up CT to document stability and lack of developing pathology. Trace left pleural effusion. Mild left basilar discoid atelectasis. ASSESSMENT/PLAN: 23 yo F PMH of asthma and breast ca with mets presenting to ED w/ L sided flank pain, dysuria, and hematuria. On admission, pt became febrile. Pt has been afebrile now for 24 hours. Sepsis possibly 2/2 cystitis - (+) UA, negative U Cx, negative BCx - CT chest: see above -no leukocytosis, pt afebrile for over 24 hrs -c/w ceftriaxone day 3 as per ID recs -c/w IVF -Renal U/S negative for renal calculus or hydronephrosis -pt is neutropenic -awaiting MRI to determine if discitis L scapular pain -Alk phos increasing may be 2/2 bone mets -morphine 2 mg q4 for pain -awaiting MRI Breast Ca -pt receiving Chemotherapy , last dose Friday last week. missed dose Friday -pt should f/u with Dr. Burk [place] [facility] [place]pt takes ondansetron at home, c/w for nausea Constipation -recommending miralax and colace Leukopenia, anemia -neutropenic precautions -continue to trend F/E/N -NS 100mls /hr -Regular diet -Hypokalemia, hypophosphatemia - resolved DVT ppx: Lovenox Dispo: continue to monitor on medicine floors Visit type - Emergency Visit Emergency Visit: No - New Patient This patient is new to me today: No - Critical Care Critical Care patient: No - Discharge Referral Referred to [facility] Med P.C.: No ATTENDING PHYSICIAN STATEMENT I saw and evaluated the patient. I reviewed the resident's note and discussed the case with the resident. I agree with the resident's findings and plan as documented. SUBJECTIVE: OBJECTIVE: ASSESSMENT AND PLAN:
--- NOTE | 2018-10-26 17:15 | PN ---
Physical Exam: SUBJECTIVE: HEME/ONC Patient w/ Poorly differentiated invasive ductal Ca. Locally advanced w/ metastic dz to lungs, sternum. Patient seen and examined. Says her urinary symptoms are improving. ANC today 800. Low grade OBJECTIVE: Vital Signs Period Temp Pulse Resp BP Sys/Mendoza Pulse Ox Last 24 Hr 98.5 F-99.4 F 61-72 18-20 131-140/70-74 GENERAL: a/o x 3, in nad NECK: supple. LUNGS: Breath sounds equal, clear to auscultation bilaterally, HEART: RRR, + S murmur LSB ABDOMEN: Soft, nontender, nondistended, normoactive bowel sounds, +L CVA tenderness. Back: pain in whole left side of back. EXTREMITIES: 2+ pulses, warm, no edema. SKIN: Warm, dry, normal turgor, no rashes or lesions noted ASSESSMENT/PLAN: #Neutropenic-likely from chemotherapy #Fevers-currently afebrile #Poorly differentiated invasive ductal Ca. Locally advanced w/ metastic dz to lungs, sternum. #Urosepsis -Triple negative. -Follows with Dr. Yang @ [place] -started cytotoxic chemotherapy 10/17 (Carboplat/Gemcitabine) -currently afebrile -There is no established role for G-CSFs in afebrile patients who have already developed severe neutropenia after chemotherapy -Monitor vitals. ATTENDING PHYSICIAN STATEMENT I saw and evaluated the patient. I reviewed the resident's note and discussed the case with the resident. I agree with the resident's findings and plan as documented. SUBJECTIVE: OBJECTIVE: ASSESSMENT AND PLAN:
[2018-10-26] MEDS ORDERED: DEXTROSE 5%-WATER - 50 ML IVPB ONE (19:44)
[2018-10-26] MEDS ORDERED: cefTRIAXone SODIUM 1 GM VIAL ONE (19:44)
[2018-10-26] MEDS: CEFTRIAXONE 1 GM in DEXTROSE 5%-WATER - 50 ML IVPB SCH (19:46)
[2018-10-26] MEDS: DOCUSATE SODIUM 100 MG CAPSULE (FP) PO SCH (21:56)
[2018-10-26] MEDS: POLYETHYLENE GLYCOL 3350 119 GM BTL PO SCH (21:57)
[2018-10-27] MEDS: MORPHINE SULFATE 2 MG/ML VIAL IVPUSH PRN ×4 (03:40→20:14)
[2018-10-27 07:27] LABS: BASO % 0.5 % (0-2.0); HEMOGLOBIN 9.6 GM/dL (10.7-15.3); MCH 27.1 pg (25.7-33.7); MCHC 34.2 g/dl (32.0-36.0); MEAN CELL VOLUME 79.1 fl (80-96); MEAN PLT VOLUME 6.7 fl (7.5-11.1); NEUT % 46.5 % (42.8-82.8); PLATELET COUNT 87 K/MM3 (134-434); RBC 3.54 M/mm3 (3.60-5.2); RDW 12.4 % (11.6-15.6)
[2018-10-27 07:52] LABS: WHITE BLOOD COUNT 1.6 K/mm3 (4.0-10.0)
[2018-10-27 08:32] LABS: ALBUMIN 2.8 g/dl (3.4-5.0); BILIRUBIN,TOTAL 0.2 mg/dL (0.2-1); BLOOD UREA NITROGEN 4.5 mg/dL (7-18); CALCIUM 7.6 mg/dL (8.5-10.1); CREATININE 0.5 mg/dL (0.55-1.3); PHOSPHOROUS 2.5 mg/dL (2.5-4.9); POTASSIUM 3.8 mmol/L (3.5-5.1); TOT PROT 6.6 g/dl (6.4-8.2)
[2018-10-27] MEDS: ACETAMINOPHEN 325 MG TABLET (FP) PO PRN ×2 (09:52→20:14)
[2018-10-27] MEDS: POLYETHYLENE GLYCOL 3350 119 GM BTL PO SCH ×2 (09:52→21:05)
[2018-10-27] MEDS: BACITRACIN 15 GM TUBE TOPICAL OINTMENT TP SCH (09:53)
[2018-10-27] MEDS: SODIUM CHLORIDE 1,000 ML IV SCH ×2 (11:38→21:05)
[2018-10-27 12:27] LABS: ANISOCYTOSIS 1+; MACROCYTOSIS 0; PLATELET ESTIMATE DECREASED
--- NOTE | 2018-10-27 14:27 | PN ---
Physical Exam: SUBJECTIVE: Patient seen and examined at bedside. Pt states she is improving. Pt still endorses L subscapular pain. pt still constipated. pt states she still has some urinary dribbling but denies dysuria, hematuria. OBJECTIVE: Vital Signs Period Temp Pulse Resp BP Sys/Mendoza Pulse Ox Last 24 Hr 98.8 F-99.5 F 68-74 16-21 122-138/67-76 GENERAL: The patient is awake, alert, and fully oriented, in no acute distress. LUNGS: Breath sounds equal, clear to auscultation bilaterally, no wheezes, no crackles, no accessory muscle use. HEART: Regular rate and rhythm, S1, S2, + murmur Chest: L breast large and firm, L upper breast fungating lesion, ~ [id number] , non erythematous non weeping wound. ABDOMEN: Soft, nontender, nondistended, normoactive bowel sounds, no guarding, no rebound EXTREMITIES: 2+ pulses, warm, well-perfused, no edema. SKIN: Warm, dry, normal turgor, no rashes Laboratory Results - last 24 hr 10/27/18 10/27/18 06:20 06:20 WBC 1.6 L* RBC 3.54 L Hgb 9.6 L Hct 28.0 L MCV 79.1 L MCH 27.1 MCHC 34.2 RDW 12.4 Plt Count 87 L MPV 6.7 L Absolute Neuts (auto) 0.7 L Neutrophils % 46.5 Neutrophils % (Manual) 56.6 Band Neutrophils % 0.0 Lymphocytes % 31.0 Lymphocytes % (Manual) 25.2 D Monocytes % 21.0 H Monocytes % (Manual) 17 H D Eosinophils % 1.0 Eosinophils % (Manual) 0.0 Basophils % 0.5 Basophils % (Manual) 0.0 Myelocytes % (Man) 0 Promyelocytes % (Man) 0 Blast Cells % (Manual) 0 Nucleated RBC % 0 Metamyelocytes 0 Hypochromia 0 Platelet Estimate Decreased Polychromasia 0 Poikilocytosis 0 Anisocytosis 1+ Microcytosis 1+ Macrocytosis 0 Sodium 141 Potassium 3.8 Chloride 110 H Carbon Dioxide 24 Anion Gap 6 L BUN 4.5 L Creatinine 0.5 L Est GFR (CKD-EPI)AfAm 155.90 Est GFR (CKD-EPI)NonAf 134.52 Random Glucose 78 Calcium 7.6 L Phosphorus 2.5 Magnesium 2.0 Total Bilirubin 0.2 AST 73 H ALT 86 H Alkaline Phosphatase 384 H Total Protein 6.6 Albumin 2.8 L Current Medications Acetaminophen (Tylenol -) 650 mg PO Q6H PRN PRN Reason: fever Last Admin: 10/27/18 09:52 Dose: 650 mg Bacitracin (Bacitracin -) 1 applic TP DAILY [facility] Last Admin: 10/27/18 09:53 Dose: 1 applic Docusate Sodium (Colace -) 300 mg PO HS [facility] Last Admin: 10/26/18 21:56 Dose: 300 mg Enoxaparin Sodium (Lovenox -) 40 mg SQ DAILY [facility] Last Admin: 10/26/18 10:16 Dose: 40 mg Ceftriaxone Sodium 1 gm/ (Dextrose) 50 mls @ 100 mls/hr IVPB Q24H [facility] Last Admin: 10/26/18 19:46 Dose: 100 mls/hr Sodium Chloride (Normal Saline -) 1,000 mls @ 100 mls/hr IV ASDIR [facility] Last Admin: 10/27/18 11:38 Dose: 100 mls/hr Morphine Sulfate (Morphine Sulfate) 2 mg IVPUSH Q4H PRN PRN Reason: PAIN LEVEL 7 - 10 Last Admin: 10/27/18 09:51 Dose: 2 mg Polyethylene Glycol (Miralax (For Daily Use) -) 17 gm PO BID [facility] Last Admin: 10/27/18 09:52 Dose: [address] Chest: Impression: 12.3 x 12.3 x 9.7 cm left breast mass lesion. Adjacent subcutaneous stranding is noted. Multiple bilateral pulmonary nodules/masses. Left axillary lymphadenopathy. Bilateral internal mammary chain lymphadenopathy. An osteolytic lesion is noted involving the upper third of the sternal body. The thymus demonstrates mild nonspecific thickening and multiple punctate calcifications. Correlate with close follow-up CT to document stability and lack of developing pathology. Trace left pleural effusion. Mild left basilar discoid atelectasis. MRI Thoracic No evidence of disc herniation, central spinal canal stenosis, neural foramina narrowing. Normal signal intensity of the spinal cord. No pathological bone marrow replacement, bone marrow edema is seen. Left pleural effusion. Bilateral lung nodules, masses MRI Lumbar No evidence of disc herniation, spinal canal stenosis, neural foraminal stenosis. Normal signal intensity of the bone marrow. ASSESSMENT/PLAN: 23 yo F PMH of asthma and breast ca with mets presenting to ED w/ L sided flank pain, dysuria, and hematuria. On admission, pt became febrile. Pt has been afebrile now for 24 hours. L scapular/ flank pain possibly 2/2 Hemorrhagic Cystitis: -pt complaing of dysuria, hematura, flank pain 3 days following first chemo treatment - (+) UA, negative U Cx, negative BCx - CT chest: see above -no leukocytosis, pt afebrile for over 24 hrs -c/w ceftriaxone day 4 as per ID recs -c/w IVF -Renal U/S negative for renal calculus or hydronephrosis -pt is neutropenic - MRI negative, see above -Alk phos increasing may be 2/2 bone mets -morphine 2 mg q4 for pain Breast Ca w/ bone mets ( sternal metastasis) -invasive ductal carcinoma of her L breast, locally advanced, ER/OR and HER 2 negative, plus lung and bone M+ -pt receiving Chemotherapy , last dose Friday last week. missed dose Friday -pt started carboplatin and gemcitabine -pt started zoledronic acid -records obtained from Dr. Collins, pt should f/u with Dr. Collins [place] [facility] [place]pt takes ondansetron at home, c/w for nausea Constipation -recommending miralax and colace Leukopenia, anemia -neutropenic precautions -continue to trend F/E/N -NS 100mls /hr -Regular diet -Hypokalemia, hypophosphatemia - resolved DVT ppx: Lovenox Dispo: continue to monitor on medicine floors Visit type - Emergency Visit Emergency Visit: No - New Patient This patient is new to me today: No - Critical Care Critical Care patient: No - Discharge Referral Referred to [facility] Med P.C.: No ATTENDING PHYSICIAN STATEMENT I saw and evaluated the patient. I reviewed the resident's note and discussed the case with the resident. I agree with the resident's findings and plan as documented. SUBJECTIVE: OBJECTIVE: ASSESSMENT AND PLAN:
--- NOTE | 2018-10-27 17:20 | PN ---
Physical Exam: SUBJECTIVE: Patient seen and examined. Still endorses L subscapular pain. 1.6 WBC count today. ANC 700. Yesterday 800. Low grade. OBJECTIVE: Vital Signs Period Temp Pulse Resp BP Sys/Mendoza Pulse Ox Last 24 Hr 98.1 F-99.5 F 64-74 16-21 122-138/67-76 GENERAL: a/o x 3, in nad NECK: supple. LUNGS: Breath sounds equal, clear to auscultation bilaterally, HEART: RRR, + S murmur LSB L axillary Lymphadenopathy ABDOMEN: Soft, nontender, nondistended, normoactive bowel sounds Back: pain in whole left side of back. EXTREMITIES: 2+ pulses, warm, no edema. SKIN: Warm, dry, normal turgor, no rashes or lesions noted Breast: L breast enlarged. Firm. No nipple discharge. L upper breast lesion, 3x 2 cm, no drainage. Laboratory Results - last 24 hr 10/27/18 10/27/18 06:20 06:20 WBC 1.6 L* RBC 3.54 L Hgb 9.6 L Hct 28.0 L MCV 79.1 L MCH 27.1 MCHC 34.2 RDW 12.4 Plt Count 87 L MPV 6.7 L Absolute Neuts (auto) 0.7 L Neutrophils % 46.5 Neutrophils % (Manual) 56.6 Band Neutrophils % 0.0 Lymphocytes % 31.0 Lymphocytes % (Manual) 25.2 D Monocytes % 21.0 H Monocytes % (Manual) 17 H D Eosinophils % 1.0 Eosinophils % (Manual) 0.0 Basophils % 0.5 Basophils % (Manual) 0.0 Myelocytes % (Man) 0 Promyelocytes % (Man) 0 Blast Cells % (Manual) 0 Nucleated RBC % 0 Metamyelocytes 0 Hypochromia 0 Platelet Estimate Decreased Polychromasia 0 Poikilocytosis 0 Anisocytosis 1+ Microcytosis 1+ Macrocytosis 0 Sodium 141 Potassium 3.8 Chloride 110 H Carbon Dioxide 24 Anion Gap 6 L BUN 4.5 L Creatinine 0.5 L Est GFR (CKD-EPI)AfAm 155.90 Est GFR (CKD-EPI)NonAf 134.52 Random Glucose 78 Calcium 7.6 L Phosphorus 2.5 Magnesium 2.0 Total Bilirubin 0.2 AST 73 H ALT 86 H Alkaline Phosphatase 384 H Total Protein 6.6 Albumin 2.8 L Active Medications Generic Name Dose Route Start Last Admin Trade Name Freq PRN Reason Stop Dose Admin Acetaminophen 650 mg 10/24/18 11:16 10/27/18 09:52 Tylenol - PO 650 mg Q6H PRN Administration fever Bacitracin 1 applic 10/26/18 14:45 10/27/18 09:53 Bacitracin - TP 1 applic DAILY RAMANA Administration Docusate Sodium 300 mg 10/26/18 22:00 10/26/18 21:56 Colace - PO 300 mg HS RAMANA Administration Enoxaparin Sodium 40 mg 10/24/18 10:00 10/26/18 10:16 Lovenox - SQ 40 mg DAILY RAMANA Administration Ceftriaxone Sodium 1 gm/ 50 mls @ 100 mls/hr 10/24/18 20:00 10/26/18 19:46 Dextrose IVPB 100 mls/hr Q24H RAMANA Administration Sodium Chloride 1,000 mls @ 100 mls/hr 10/23/18 21:00 10/27/18 11:38 Normal Saline - IV 100 mls/hr ASDIR RAMANA Administration Morphine Sulfate 2 mg 10/24/18 12:58 10/27/18 14:57 Morphine Sulfate IVPUSH 2 mg Q4H PRN Administration PAIN LEVEL 7 - 10 Polyethylene Glycol 17 gm 10/26/18 22:00 10/27/18 09:52 Miralax (For Daily Use) - PO 17 gm BID RAMANA Administration ASSESSMENT/PLAN: #Neutropenic-likely from chemotherapy #Fevers-currently afebrile #Poorly differentiated invasive ductal Ca. Locally advanced w/ metastic dz to lungs, sternum. recently [place] chemo [place] [facility] [place]Triple negative. -Follows with Dr. Yang @ [place] -started cytotoxic chemotherapy 10/17 (Carboplat/Gemcitabine) -currently afebrile -There is no established role for G-CSFs in afebrile patients who have already developed severe neutropenia after chemotherapy -Monitor vitals. Visit type - Emergency Visit Emergency Visit: Yes ED Registration Date: 10/23/18 Care time: The patient presented to the Emergency Department on the above date and was hospitalized for further evaluation of their emergent condition. - New Patient This patient is new to me today: Yes Date on this admission: 10/28/18 - Critical Care Critical Care patient: No ATTENDING PHYSICIAN STATEMENT I saw and evaluated the patient. I reviewed the resident's note and discussed the case with the resident. I agree with the resident's findings and plan as documented. SUBJECTIVE: OBJECTIVE: ASSESSMENT AND PLAN:
--- NOTE | 2018-10-27 17:21 | CONSULT ---
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 PMHx: none PSHx: none Home Medications Medication Instructions Recorded Ondansetron [Zofran -] 10/24/18 Allergies Allergy/AdvReac Type Severity Reaction Status Date / Time No Known Allergies Allergy Verified 10/23/18 12:53 PHYSICAL EXAM: GENERAL: Awake, alert, and fully oriented, in no acute distress. HEAD: Normal with no signs of trauma. EYES: , sclera anicteric, conjunctiva clear. NECK: Normal ROM, supple without lymphadenopathy, JVD, or masses. ABDOMEN: Soft, nontender, not distended, normoactive bowel sounds, no guarding, no rebound, no masses. No organomegaly. No hernias MUSCULOSKELETAL: Normal ROM at all joints. No bony deformities or tenderness. No CVA tenderness. UPPER EXTREMITIES: 2+ pulses, warm, well-perfused. No cyanosis. Cap refill <2 seconds. No peripheral edema. LOWER EXTREMITIES: 2+ pulses, warm, well-perfused. No calf tenderness. No peripheral edema. NEUROLOGICAL: Normal speech, gait not observed. PSYCH: Cooperative. Good eye contact. Appropriate mood and affect. SKIN: Warm, dry, normal turgor, no rashes or lesions noted. LEFT breast entirely replaced by tumor w/small impending ulceration LUOQ; RIGHT unremarkable. Axillary adenopathy is present Vital Signs Temperature 98.1 F 10/27/18 13:00 Pulse Rate 64 10/27/18 13:00 Respiratory Rate 16 10/27/18 13:00 Blood Pressure 127/74 10/27/18 13:00 O2 Sat by Pulse Oximetry (%) 100 10/25/18 09:00 Lab Results WBC 1.6 K/mm3 (4.0-10.0) L* 10/27/18 06:20 RBC 3.54 M/mm3 (3.60-5.2) L 10/27/18 06:20 Hgb 9.6 GM/dL (10.7-15.3) L 10/27/18 06:20 Hct 28.0 % (32.4-45.2) L 10/27/18 06:20 MCV 79.1 fl (80-96) L 10/27/18 06:20 MCHC 34.2 g/dl (32.0-36.0) 10/27/18 06:20 RDW 12.4 % (11.6-15.6) 10/27/18 06:20 Plt Count 87 K/MM3 (134-434) L 10/27/18 06:20 Sodium 141 mmol/L (136-145) 10/27/18 06:20 Potassium 3.8 mmol/L (3.5-5.1) 10/27/18 06:20 Chloride 110 mmol/L (98-107) H 10/27/18 06:20 Carbon Dioxide 24 mmol/L (21-32) 10/27/18 06:20 Anion Gap 6 MMOL/L (8-16) L 10/27/18 06:20 BUN 4.5 mg/dL (7-18) L 10/27/18 06:20 Creatinine 0.5 mg/dL (0.55-1.3) L 10/27/18 06:20 Random Glucose 78 mg/dL (74-106) 10/27/18 06:20 Calcium 7.6 mg/dL (8.5-10.1) L 10/27/18 06:20 w/u to date reviewed IMP::ABC; left w/xtensive metastatic disease. PLAN: No specific wound care is indicated e/f dry dressing; there is no surgical intervention indicated; ongoing chemo should resume ABIODUN; prognosis is poor. Marck Bronson MD FACS
--- NOTE | 2018-10-27 17:45 | PN ---
Teaching Attending Note Name of Resident: Nancie Cloud ATTENDING PHYSICIAN STATEMENT I saw and evaluated the patient. I reviewed the resident's note and discussed the case with the resident. I agree with the resident's findings and plan as documented. SUBJECTIVE: Complains of some ongoing L side flank pain. Pain wors valentine inspiration. No further dysuria/hematuria. No fever/chills. OBJECTIVE: Low grade T 99.5, hemodynamically Stable. Last Vital Signs Temp Pulse Resp BP Pulse Ox 98.1 F 64 16 127/74 100 10/27/18 13:00 10/27/18 13:00 10/27/18 13:00 10/27/18 13:00 10/25/18 09:00 HEENT - Atraumatic, Normocephalic. Heart - S1, S2, RRR Lungs - clear to auscultation Breast (examined with resident die cutting machine operator) - Large firm mass Upper outer quadrant L Breast with skin ulceration. Abdomen - soft, non-tender. Bowel Sounds normal. Extremities - No edema, no calf tenderness. Laboratory Results - last 24 hr 10/27/18 10/27/18 06:20 06:20 WBC 1.6 L* RBC 3.54 L Hgb 9.6 L Hct 28.0 L MCV 79.1 L MCH 27.1 MCHC 34.2 RDW 12.4 Plt Count 87 L MPV 6.7 L Absolute Neuts (auto) 0.7 L Neutrophils % 46.5 Neutrophils % (Manual) 56.6 Band Neutrophils % 0.0 Lymphocytes % 31.0 Lymphocytes % (Manual) 25.2 D Monocytes % 21.0 H Monocytes % (Manual) 17 H D Eosinophils % 1.0 Eosinophils % (Manual) 0.0 Basophils % 0.5 Basophils % (Manual) 0.0 Myelocytes % (Man) 0 Promyelocytes % (Man) 0 Blast Cells % (Manual) 0 Nucleated RBC % 0 Metamyelocytes 0 Hypochromia 0 Platelet Estimate Decreased Polychromasia 0 Poikilocytosis 0 Anisocytosis 1+ Microcytosis 1+ Macrocytosis 0 Sodium 141 Potassium 3.8 Chloride 110 H Carbon Dioxide 24 Anion Gap 6 L BUN 4.5 L Creatinine 0.5 L Est GFR (CKD-EPI)AfAm 155.90 Est GFR (CKD-EPI)NonAf 134.52 Random Glucose 78 Calcium 7.6 L Phosphorus 2.5 Magnesium 2.0 Total Bilirubin 0.2 AST 73 H ALT 86 H Alkaline Phosphatase 384 H Total Protein 6.6 Albumin 2.8 L Current Medications Generic Name Dose Route Start Last Admin Trade Name Husseinq PRN Reason Stop Dose Admin Acetaminophen 650 mg 10/24/18 11:16 10/27/18 09:52 Tylenol - PO 650 mg Q6H PRN Administration fever Bacitracin 1 applic 10/26/18 14:45 10/27/18 09:53 Bacitracin - TP 1 applic DAILY RAMANA Administration Docusate Sodium 300 mg 10/26/18 22:00 10/26/18 21:56 Colace - PO 300 mg HS RAMANA Administration Enoxaparin Sodium 40 mg 10/24/18 10:00 10/26/18 10:16 Lovenox - SQ 40 mg DAILY RAMANA Administration Ceftriaxone Sodium 1 gm/ 50 mls @ 100 mls/hr 10/24/18 20:00 10/26/18 19:46 Dextrose IVPB 100 mls/hr Q24H RAMANA Administration Sodium Chloride 1,000 mls @ 100 mls/hr 10/23/18 21:00 10/27/18 11:38 Normal Saline - IV 100 mls/hr ASDIR RAMANA Administration Morphine Sulfate 2 mg 10/24/18 12:58 10/27/18 14:57 Morphine Sulfate IVPUSH 2 mg Q4H PRN Administration PAIN LEVEL 7 - 10 Polyethylene Glycol 17 gm 10/26/18 22:00 10/27/18 09:52 Miralax (For Daily Use) - PO 17 gm BID RAMANA Administration Home Medications Medication Instructions Recorded Ondansetron [Zofran -] 10/24/18 ASSESSMENT AND PLAN: 23 year old female with 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 [place] [facility] [place] 1. Hemorrhagic Cystitis secondary to Chemotherapy, resolving. No further dysuria /hematuria. Empirically treated with Ceftiaxone for UTI. Urine Cx negative. 2. Pancytopenia (anemia/neutropenia/Thombocytopenia) sec to recent Chemotherapy (Carboplatin/Gemcitabine) For supportive care. If develops fever, will work up for Neutropenic fever and cover with Cefepime. 3. L flank/shoulder pain - likely caused by pleural effusion, presumed malignant sec to lung mets. 4. Elevated LFTs - possibly sec to cholestasis due to cephalosporin. Abdominal US requested. DVT Px - SCDs. Heparin held due to thrombocytopenia.
--- NOTE | 2018-10-27 20:44 | PN ---
Teaching Attending Note Name of Resident: Rivera Long ATTENDING PHYSICIAN STATEMENT I saw and evaluated the patient. I reviewed the resident's note and discussed the case with the resident. I agree with the resident's findings and plan as documented. SUBJECTIVE: OBJECTIVE: ASSESSMENT AND PLAN: Patient seen and examined Complains of left lateral rib cage pains Last Vital Signs Temp Pulse Resp BP Pulse Ox 98.8 F 69 18 139/84 100 10/27/18 17:00 10/27/18 17:00 10/27/18 17:00 10/27/18 17:00 10/25/18 09:00 L CBC, BMP 10/27/18 06:20 10/27/18 06:20 Current Medications Generic Name Dose Route Start Last Admin Trade Name Freq PRN Reason Stop Dose Admin Acetaminophen 650 mg 10/24/18 11:16 10/27/18 20:14 Tylenol - PO 650 mg Q6H PRN Administration fever Bacitracin 1 applic 10/26/18 14:45 10/27/18 09:53 Bacitracin - TP 1 applic DAILY RAMANA Administration Docusate Sodium 300 mg 10/26/18 22:00 10/26/18 21:56 Colace - PO 300 mg HS RAMANA Administration Enoxaparin Sodium 40 mg 10/24/18 10:00 10/26/18 10:16 Lovenox - SQ 40 mg DAILY RAMAAN Administration Sodium Chloride 1,000 mls @ 100 mls/hr 10/23/18 21:00 10/27/18 11:38 Normal Saline - IV 100 mls/hr ASDIR RAMANA Administration Morphine Sulfate 2 mg 10/24/18 12:58 10/27/18 20:14 Morphine Sulfate IVPUSH 2 mg Q4H PRN Administration PAIN LEVEL 7 - 10 Polyethylene Glycol 17 gm 10/26/18 22:00 10/27/18 09:52 Miralax (For Daily Use) - PO 17 gm BID RAMANA Administration Lungs - clear Cor RSR Abd soft Left breast tumor with satellite nodule and left axillary node Impression Triple negative breast ca - s/p Carboplatinum/gemzar therapy Day 13. Would anticipate recovery of bone marrow over next few days. Daily CBC Will need to call oncologist at [facility].
[2018-10-27] MEDS: DOCUSATE SODIUM 100 MG CAPSULE (FP) PO SCH (21:05)
[2018-10-28] MEDS: MORPHINE SULFATE 2 MG/ML VIAL IVPUSH PRN ×6 (00:08→23:11)
[2018-10-28 08:06] LABS: BASO % 0.4 % (0-2.0); EOS % 0.8 % (0-4.5); HEMATOCRIT 27.7 % (32.4-45.2); HEMOGLOBIN 9.4 GM/dL (10.7-15.3); LYMPH % 37.1 % (8-40); MCH 26.5 pg (25.7-33.7); MCHC 33.9 g/dl (32.0-36.0); MEAN CELL VOLUME 78.2 fl (80-96); MEAN PLT VOLUME 6.3 fl (7.5-11.1); MONO % 19.5 % (3.8-10.2); NEUT % 42.2 % (42.8-82.8); PLATELET COUNT 91 K/MM3 (134-434); RBC 3.54 M/mm3 (3.60-5.2); RDW 12.5 % (11.6-15.6)
[2018-10-28] MEDS: SODIUM CHLORIDE 1,000 ML IV SCH (08:15)
[2018-10-28 08:33] LABS: ALBUMIN 2.8 g/dl (3.4-5.0); BILIRUBIN,DIRECT 0.2 mg/dL (0.0-0.2); BILIRUBIN,TOTAL 0.2 mg/dL (0.2-1); BLOOD UREA NITROGEN 5.4 mg/dL (7-18); CREATININE 0.5 mg/dL (0.55-1.3); MAGNESIUM 1.9 mg/dL (1.8-2.4); PHOSPHOROUS 2.9 mg/dL (2.5-4.9); POTASSIUM 3.7 mmol/L (3.5-5.1); TOT PROT 6.3 g/dl (6.4-8.2)
[2018-10-28 08:48] LABS: WHITE BLOOD COUNT 1.5 K/mm3 (4.0-10.0)
[2018-10-28] MEDS: ENOXAPARIN NA (PORCINE) 40 MG/0.4 ML DISP.SYRIN SQ SCH (10:30)
[2018-10-28] MEDS: POLYETHYLENE GLYCOL 3350 119 GM BTL PO SCH ×2 (10:30→21:52)
[2018-10-28] MEDS: BACITRACIN 15 GM TUBE TOPICAL OINTMENT TP SCH (10:31)
[2018-10-28 11:50] LABS: ANISOCYTOSIS 0; MACROCYTOSIS 0; PLATELET ESTIMATE DECREASED
--- NOTE | 2018-10-28 13:29 | PN ---
Physical Exam: SUBJECTIVE: Patient seen and examined at bedside. pt states she is feeling better but still has not had a BM OBJECTIVE: Vital Signs Period Temp Pulse Resp BP Sys/Mendoza Pulse Ox Last 24 Hr 98.2 F-98.8 F 66-89 18-20 137-157/77-89 GENERAL: The patient is awake, alert, and fully oriented, in no acute distress. LUNGS: Breath sounds equal, clear to auscultation bilaterally, no wheezes, no crackles, no accessory muscle use. CHEST: L breast large and firm, L upper breast fungating lesion, ~ [id number] , non erythematous non weeping wound. HEART: Regular rate and rhythm, S1, S2 + murmur ABDOMEN: Soft, nontender, nondistended, normoactive bowel sounds, no guarding EXTREMITIES: 2+ pulses, warm, well-perfused, no edema. SKIN: Warm, dry, normal turgor, no rashes or lesions noted Laboratory Results - last 24 hr 10/28/18 10/28/18 07:45 07:45 WBC 1.5 L* RBC 3.54 L Hgb 9.4 L Hct 27.7 L MCV 78.2 L MCH 26.5 MCHC 33.9 RDW 12.5 Plt Count 91 L MPV 6.3 L Absolute Neuts (auto) 0.6 L Neutrophils % 42.2 L Neutrophils % (Manual) 46.5 Band Neutrophils % 0.0 Lymphocytes % 37.1 Lymphocytes % (Manual) 35.3 D Monocytes % 19.5 H Monocytes % (Manual) 16 H Eosinophils % 0.8 Eosinophils % (Manual) 1.0 D Basophils % 0.4 Basophils % (Manual) 1.0 D Myelocytes % (Man) 0 Promyelocytes % (Man) 0 Blast Cells % (Manual) 0 Nucleated RBC % 0 Metamyelocytes 0 Hypochromia 0 Platelet Estimate Decreased Polychromasia 0 Poikilocytosis 0 Anisocytosis 0 Microcytosis 0 Macrocytosis 0 Sodium 143 Potassium 3.7 Chloride 111 H Carbon Dioxide 24 Anion Gap 7 L BUN 5.4 L Creatinine 0.5 L Est GFR (CKD-EPI)AfAm 155.90 Est GFR (CKD-EPI)NonAf 134.52 Random Glucose 77 Calcium 8.0 L Phosphorus 2.9 Magnesium 1.9 Total Bilirubin 0.2 Direct Bilirubin 0.2 AST 70 H ALT 80 H Alkaline Phosphatase 346 H Total Protein 6.3 L Albumin 2.8 L Current Medications Acetaminophen (Tylenol -) 650 mg PO Q6H PRN PRN Reason: fever Last Admin: 10/27/18 20:14 Dose: 650 mg Bacitracin (Bacitracin -) 1 applic TP DAILY RAAMNA Last Admin: 10/28/18 10:31 Dose: 1 applic Docusate Sodium (Colace -) 300 mg PO HS RAMANA Last Admin: 10/27/18 21:05 Dose: 300 mg Sodium Chloride (Normal Saline -) 1,000 mls @ 100 mls/hr IV ASDIR RAMANA Last Admin: 10/28/18 08:15 Dose: Not Given Ceftriaxone Sodium 1 gm/ (Dextrose) 50 mls @ 100 mls/hr IVPB DAILY RAMANA; Protocol Morphine Sulfate (Morphine Sulfate) 2 mg IVPUSH Q4H PRN PRN Reason: PAIN LEVEL 7 - 10 Last Admin: 10/28/18 10:30 Dose: 2 mg Polyethylene Glycol (Miralax (For Daily Use) -) 17 gm PO BID RAMANA Last Admin: 10/28/18 10:30 Dose: 17 gm Senna (Senna -) 2 tab PO HS PRN PRN Reason: CONSTIPATION CT Chest: Impression: 12.3 x 12.3 x 9.7 cm left breast mass lesion. Adjacent subcutaneous stranding is noted. Multiple bilateral pulmonary nodules/masses. Left axillary lymphadenopathy. Bilateral internal mammary chain lymphadenopathy. An osteolytic lesion is noted involving the upper third of the sternal body. The thymus demonstrates mild nonspecific thickening and multiple punctate calcifications. Correlate with close follow-up CT to document stability and lack of developing pathology. Trace left pleural effusion. Mild left basilar discoid atelectasis. MRI Thoracic No evidence of disc herniation, central spinal canal stenosis, neural foramina narrowing. Normal signal intensity of the spinal cord. No pathological bone marrow replacement, bone marrow edema is seen. Left pleural effusion. Bilateral lung nodules, masses MRI Lumbar No evidence of disc herniation, spinal canal stenosis, neural foraminal stenosis. Normal signal intensity of the bone marrow. Abdominal U/S IMPRESSION: Small left pleural effusion, otherwise normal abdominal sonogram with no evidence of hepatic pathology. ASSESSMENT/PLAN: 23 yo F PMH of asthma and breast ca with mets presenting to ED w/ L sided flank pain, dysuria, and hematuria. On admission, pt became febrile. Pt has been afebrile now for 24 hours. L scapular/ flank pain possibly 2/2 Hemorrhagic Cystitis: -pt complaing of dysuria, hematura, flank pain 3 days following first chemo treatment - (+) UA, negative U Cx, negative BCx - CT chest: see above -no leukocytosis, pt afebrile for over 24 hrs -c/w ceftriaxone day 4 as per ID recs -c/w IVF -Renal U/S negative for renal calculus or hydronephrosis -pt is neutropenic - MRI negative, see above -Alk phos increasing may be 2/2 bone mets -morphine 2 mg q4 for pain Pancytopenia -likely 2/2 to chemotherapy on 10/16 -neutropenic precautions -heme onc following -continue to trend Breast Ca w/ bone mets ( sternal metastasis) -invasive ductal carcinoma of her L breast, locally advanced, ER/CO and HER 2 negative, plus lung and bone M+ -pt receiving Chemotherapy , last dose 10/16. missed dose 10/23 due to admission to [facility] -pt started carboplatin and gemcitabine -pt started zoledronic acid -records obtained from Dr. Collins, pt should f/u with Dr. Collins [place] [facility] [place]pt takes ondansetron at home, c/w for nausea Transaminitis likely 2/2 chemotherapy -downtrending -Abdominal U/S no evidence of hepatic pathology. Constipation -recommending miralax and colace - recommending senna and milk of magnesia F/E/N -NS 100mls /hr -Regular diet, ensure -Hypokalemia, hypophosphatemia - resolved DVT ppx: Lovenox held 2/2 thrombocytopenia Dispo: continue to monitor on medicine floors until medically optimized Visit type - Emergency Visit Emergency Visit: No - New Patient This patient is new to me today: No - Critical Care Critical Care patient: No - Discharge Referral Referred to [facility] Med P.C.: No ATTENDING PHYSICIAN STATEMENT I saw and evaluated the patient. I reviewed the resident's note and discussed the case with the resident. I agree with the resident's findings and plan as documented. SUBJECTIVE: OBJECTIVE: ASSESSMENT AND PLAN:
[2018-10-28] MEDS ORDERED: MAGNESIUM HYDROX 2400MG/30ML ORAL SUSPENSION 30 ML CUP PO ONE (13:30)
--- NOTE | 2018-10-28 13:38 | PN ---
Teaching Attending Note Name of Resident: Nancie Cloud ATTENDING PHYSICIAN STATEMENT I saw and evaluated the patient. I reviewed the resident's note and discussed the case with the resident. I agree with the resident's findings and plan as documented. SUBJECTIVE: Complains of some ongoing L side flank pain, pleuritic. Pain worse on inspiration. No further dysuria/hematuria. No fever/chills. OBJECTIVE: Afebrile, hemodynamically Stable. Last Vital Signs Temp Pulse Resp BP Pulse Ox 98.2 F 66 20 137/77 100 10/28/18 06:55 10/28/18 06:55 10/28/18 06:55 10/28/18 06:55 10/25/18 09:00 Heart - S1, S2, SM Lungs - clear to auscultation Breast (examined 10/27 with resident fabrication department supervisor) - Large firm mass Upper outer quadrant L Breast mass with skin ulceration. No surrounding erythema Abdomen - soft, non-tender. Bowel Sounds normal. Extremities - No edema, no calf tenderness. Current Medications Generic Name Dose Route Start Last Admin Trade Name Husseinq PRN Reason Stop Dose Admin Acetaminophen 650 mg 10/24/18 11:16 10/27/18 20:14 Tylenol - PO 650 mg Q6H PRN Administration fever Bacitracin 1 applic 10/26/18 14:45 10/28/18 10:31 Bacitracin - TP 1 applic DAILY RAMANA Administration Docusate Sodium 300 mg 10/26/18 22:00 10/27/18 21:05 Colace - PO 300 mg HS RAMANA Administration Sodium Chloride 1,000 mls @ 100 mls/hr 10/23/18 21:00 10/28/18 08:15 Normal Saline - IV Not Given ASDIR RAMANA Ceftriaxone Sodium 1 gm/ 50 mls @ 100 mls/hr 10/28/18 13:42 Dextrose IVPB DAILY RAMANA Protocol Morphine Sulfate 2 mg 10/24/18 12:58 10/28/18 10:30 Morphine Sulfate IVPUSH 2 mg Q4H PRN Administration PAIN LEVEL 7 - 10 Polyethylene Glycol 17 gm 10/26/18 22:00 10/28/18 10:30 Miralax (For Daily Use) - PO 17 gm BID RAMANA Administration Senna 2 tab 10/28/18 22:00 Senna - PO HS PRN CONSTIPATION Home Medications Medication Instructions Recorded Ondansetron [Zofran -] 10/24/18 ASSESSMENT AND PLAN: 23 year old female with 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 Last chemotherapy [place] [facility] [place]. 1. Hemorrhagic Cystitis secondary to Chemotherapy, resolving. No further dysuria /hematuria. Empirically treated with Ceftiaxone for UTI. Urine Cx negative. 2. Pancytopenia (Anemia/Neutropenia/Thombocytopenia) sec to recent Chemotherapy (Carboplatin/Gemcitabine) For supportive care. If develops fever, will work up for Neutropenic fever and cover with Cefepime. 3. L flank/shoulder pain - likely caused by pleural effusion, presumed malignant sec to lung mets. 4. Elevated LFTs - possibly sec to cholestasis due to cephalosporin. Abdominal US negative. DVT Px - SCDs. Heparin held due to thrombocytopenia.
[2018-10-28] MEDS ORDERED: ONDANSETRON 8 MG TABLET (FP) PO PRN (18:28)
--- NOTE | 2018-10-28 18:34 | PN ---
Progress Note (short form) - Note Progress Note: Patient seen and examined Remains neutropenic with no marrow recovery to date Afebrile ROS - some discomfort scalp, left upper mid-axillary area ; no dysuria; some nausea. poor p.o. intake Last Vital Signs Temp Pulse Resp BP Pulse Ox 99.5 F 66 20 137/77 100 10/28/18 14:35 10/28/18 06:55 10/28/18 09:00 10/28/18 06:55 10/28/18 09:00 HEENT: LEONORA, EOM Intact Cor: RSR, No murmurs, No gallops Lungs: decreased souns LLL Abd: Soft, Normal bowel sounds, No organomegaly Ext:No significant edema Skin: No rashes, Integument intact CBC, BMP 10/28/18 07:45 10/28/18 07:45 Current Medications Generic Name Dose Route Start Last Admin Trade Name Freq PRN Reason Stop Dose Admin Acetaminophen 650 mg 10/24/18 11:16 10/27/18 20:14 Tylenol - PO 650 mg Q6H PRN Administration fever Bacitracin 1 applic 10/26/18 14:45 10/28/18 10:31 Bacitracin - TP 1 applic DAILY RAMANA Administration Docusate Sodium 300 mg 10/26/18 22:00 10/27/18 21:05 Colace - PO 300 mg HS RAMANA Administration Ceftriaxone Sodium 1 gm/ 50 mls @ 100 mls/hr 10/28/18 13:42 Dextrose IVPB DAILY RAMANA Protocol Morphine Sulfate 2 mg 10/24/18 12:58 10/28/18 15:00 Morphine Sulfate IVPUSH 2 mg Q4H PRN Administration PAIN LEVEL 7 - 10 Ondansetron HCl 8 mg 10/28/18 18:28 Zofran - PO Q8H PRN NAUSEA Polyethylene Glycol 17 gm 10/26/18 22:00 10/28/18 10:30 Miralax (For Daily Use) - PO 17 gm BID RAMANA Administration Senna 2 tab 10/28/18 22:00 Senna - PO HS PRN CONSTIPATION Impression: Metastatic breast ca Neutropenia UTI on admission - continuing on ceftriaxone. Would have ID follow up re: duration of antibiotics. Sometimes maintained until WBC improved. Continue to monitor. May consider growth factor.
[2018-10-28] MEDS ORDERED: ONDANSETRON *ODT* 4 MG TABLET SL PRN (18:47)
[2018-10-28] MEDS: DOCUSATE SODIUM 100 MG CAPSULE (FP) PO SCH (21:51)
[2018-10-28] MEDS ORDERED: SENNOSIDES 8.6MG TABLET (FP) PO PRN (22:00)
[2018-10-29] MEDS: MORPHINE SULFATE 2 MG/ML VIAL IVPUSH PRN ×5 (02:57→21:39)
[2018-10-29 08:26] LABS: BASO % 0.5 % (0-2.0); EOS % 1.2 % (0-4.5); HEMATOCRIT 29.8 % (32.4-45.2); HEMOGLOBIN 10.1 GM/dL (10.7-15.3); LYMPH % 49.2 % (8-40); MCH 26.8 pg (25.7-33.7); MEAN CELL VOLUME 78.8 fl (80-96); MEAN PLT VOLUME 6.5 fl (7.5-11.1); MONO % 19.1 % (3.8-10.2); PLATELET COUNT 114 K/MM3 (134-434); RBC 3.78 M/mm3 (3.60-5.2); RDW 12.3 % (11.6-15.6)
--- NOTE | 2018-10-29 08:50 | PN ---
Physical Exam: SUBJECTIVE: Patient seen and examined at bedside. Pt has no acute complaints. Pt states she is still constipated. OBJECTIVE: Vital Signs Period Temp Pulse Resp BP Sys/Mendoza Pulse Ox Last 24 Hr 97.7 F-99.5 F 64-80 20-20 137-150/70-82 100-100 GENERAL: The patient is awake, alert, and fully oriented, in no acute distress. LUNGS: Breath sounds equal, clear to auscultation bilaterally, no wheezes, no crackles, no accessory muscle use. HEART: Regular rate and rhythm, S1, S2 systolic murmur ABDOMEN: Soft, nontender, nondistended, normoactive bowel sounds, no guarding EXTREMITIES: 2+ pulses, warm, well-perfused, no edema. SKIN: Warm, dry, normal turgor, no rashes or lesions noted Laboratory Results - last 24 hr 10/28/18 10/29/18 07:45 08:05 RBC 3.78 Hgb 10.1 L Hct 29.8 L MCV 78.8 L MCH 26.8 MCHC 34.0 RDW 12.3 Plt Count 114 L D MPV 6.5 L Absolute Neuts (auto) 0.4 L Neutrophils % 30.0 L D Neutrophils % (Manual) 46.5 Band Neutrophils % 0.0 Lymphocytes % 49.2 H D Lymphocytes % (Manual) 35.3 D Monocytes % 19.1 H Monocytes % (Manual) 16 H Eosinophils % 1.2 Eosinophils % (Manual) 1.0 D Basophils % 0.5 Basophils % (Manual) 1.0 D Myelocytes % (Man) 0 Promyelocytes % (Man) 0 Blast Cells % (Manual) 0 Nucleated RBC % 0 0 Metamyelocytes 0 Hypochromia 0 Platelet Estimate Decreased Polychromasia 0 Poikilocytosis 0 Anisocytosis 0 Microcytosis 0 Macrocytosis 0 Current Medications Acetaminophen (Tylenol -) 650 mg PO Q6H PRN PRN Reason: fever Last Admin: 10/29/18 10:40 Dose: 650 mg Bacitracin (Bacitracin -) 1 applic TP DAILY RAMANA Last Admin: 10/29/18 10:39 Dose: 1 applic Docusate Sodium (Colace -) 300 mg PO HS RAMANA Last Admin: 10/28/18 21:51 Dose: 300 mg Ceftriaxone Sodium 1 gm/ (Dextrose) 50 mls @ 100 mls/hr IVPB DAILY RAMANA; Protocol Last Admin: 10/29/18 10:41 Dose: 100 mls/hr Morphine Sulfate (Morphine Sulfate) 2 mg IVPUSH Q4H PRN PRN Reason: PAIN LEVEL 7 - 10 Last Admin: 10/29/18 11:05 Dose: 2 mg Ondansetron HCl (Zofran Odt -) 8 mg SL Q8H PRN PRN Reason: NAUSEA Last Admin: 10/28/18 18:53 Dose: 8 mg Polyethylene Glycol (Miralax (For Daily Use) -) 17 gm PO BID RAMANA Last Admin: 10/29/18 10:40 Dose: 17 gm Senna (Senna -) 2 tab PO HS [address] CT Chest: Impression: 12.3 x 12.3 x 9.7 cm left breast mass lesion. Adjacent subcutaneous stranding is noted. Multiple bilateral pulmonary nodules/masses. Left axillary lymphadenopathy. Bilateral internal mammary chain lymphadenopathy. An osteolytic lesion is noted involving the upper third of the sternal body. The thymus demonstrates mild nonspecific thickening and multiple punctate calcifications. Correlate with close follow-up CT to document stability and lack of developing pathology. Trace left pleural effusion. Mild left basilar discoid atelectasis. MRI Thoracic No evidence of disc herniation, central spinal canal stenosis, neural foramina narrowing. Normal signal intensity of the spinal cord. No pathological bone marrow replacement, bone marrow edema is seen. Left pleural effusion. Bilateral lung nodules, masses MRI Lumbar No evidence of disc herniation, spinal canal stenosis, neural foraminal stenosis. Normal signal intensity of the bone marrow. Abdominal U/S IMPRESSION: Small left pleural effusion, otherwise normal abdominal sonogram with no evidence of hepatic pathology. ASSESSMENT/PLAN: 23 yo F PMH of asthma and breast ca with mets presenting to ED w/ L sided flank pain, dysuria, and hematuria. On admission, pt became febrile. Pt has been afebrile now for 24 hours. L scapular/ flank pain possibly 2/2 Hemorrhagic Cystitis: -pt complaing of dysuria, hematura, flank pain 3 days following first chemo treatment - (+) UA, negative U Cx, negative BCx - CT chest: see above -no leukocytosis, pt afebrile for over 24 hrs -c/w ceftriaxone day 5 as per ID recs. can Discontinue ceftriaxone after today -c/w IVF -Renal U/S negative for renal calculus or hydronephrosis - MRI negative, see above -Alk phos increasing may be 2/2 bone mets -morphine 2 mg q4 for pain Pancytopenia -likely 2/2 to chemotherapy on 10/16 -neutropenic precautions -heme /onc following -continue to trend Breast Ca w/ bone mets ( sternal metastasis) -invasive ductal carcinoma of her L breast, locally advanced, ER/LA and HER 2 negative, plus lung and bone M+ -pt receiving Chemotherapy , last dose 10/16. missed dose 10/23 due to admission to [facility] -pt started carboplatin and gemcitabine -pt started zoledronic acid -records obtained from Dr. Collins, pt [place] f[place] [facility] [place] takes ondansetron at home, c/w for nausea Transaminitis likely 2/2 chemotherapy -downtrending -Abdominal U/S no evidence of hepatic pathology. Constipation -recommending miralax and colace - recommending senna and milk of magnesia F/E/N -NS 100mls /hr -Regular diet, ensure -Hypokalemia, hypophosphatemia - resolved DVT ppx: Lovenox held 2/2 thrombocytopenia Dispo: continue to monitor on medicine floors until medically optimized Visit type - Emergency Visit Emergency Visit: No - New Patient This patient is new to me today: No - Critical Care Critical Care patient: No - Discharge Referral Referred to [facility] Med P.C.: No ATTENDING PHYSICIAN STATEMENT I saw and evaluated the patient. I reviewed the resident's note and discussed the case with the resident. I agree with the resident's findings and plan as documented. SUBJECTIVE: OBJECTIVE: ASSESSMENT AND PLAN:
[2018-10-29 08:55] LABS: ALBUMIN 3.1 g/dl (3.4-5.0); BILIRUBIN,TOTAL 0.2 mg/dL (0.2-1); BLOOD UREA NITROGEN 5.2 mg/dL (7-18); CALCIUM 8.6 mg/dL (8.5-10.1); CREATININE 0.5 mg/dL (0.55-1.3); MAGNESIUM 2.1 mg/dL (1.8-2.4); PHOSPHOROUS 3.5 mg/dL (2.5-4.9); POTASSIUM 3.9 mmol/L (3.5-5.1); TOT PROT 6.9 g/dl (6.4-8.2)
[2018-10-29] MEDS ORDERED: CEFTRIAXONE 1 GM in DEXTROSE 5%-WATER - 50 ML IVPB SCH (10:00)
[2018-10-29] MEDS ORDERED: DEXTROSE 5%-WATER - 50 ML IVPB ONE (10:19)
[2018-10-29] MEDS ORDERED: cefTRIAXone SODIUM 1 GM VIAL ONE (10:19)
[2018-10-29] MEDS: BACITRACIN 15 GM TUBE TOPICAL OINTMENT TP SCH (10:39)
[2018-10-29] MEDS: POLYETHYLENE GLYCOL 3350 119 GM BTL PO SCH ×2 (10:40→21:40)
[2018-10-29] MEDS: ACETAMINOPHEN 325 MG TABLET (FP) PO PRN (10:40)
[2018-10-29] MEDS: CEFTRIAXONE 1 GM in DEXTROSE 5%-WATER - 50 ML IVPB SCH (10:41)
--- NOTE | 2018-10-29 11:11 | PN ---
Teaching Attending Note Name of Resident: Nancie Cloud ATTENDING PHYSICIAN STATEMENT I saw and evaluated the patient. I reviewed the resident's note and discussed the case with the resident. I agree with the resident's findings and plan as documented. SUBJECTIVE: L sided chest/flank pain improving. No further dysuria/hematuria. No fever/chills. OBJECTIVE: Afebrile, hemodynamically Stable. Last Vital Signs Temp Pulse Resp BP Pulse Ox 98.8 F 64 20 137/82 100 10/29/18 06:11 10/29/18 06:11 10/29/18 06:11 10/29/18 06:11 10/28/18 21:00 Heart - S1, S2, SM Lungs - clear to auscultation Breast (examined 10/27 with resident obstetrician/gynecologist) - Large firm mass Upper outer quadrant L Breast mass with skin ulceration. No surrounding erythema Abdomen - soft, non-tender. Bowel Sounds normal. Extremities - No edema, no calf tenderness. Laboratory Results - last 24 hr 10/28/18 10/29/18 10/29/18 07:45 08:05 08:05 RBC 3.78 Hgb 10.1 L Hct 29.8 L MCV 78.8 L MCH 26.8 MCHC 34.0 RDW 12.3 Plt Count 114 L D MPV 6.5 L Absolute Neuts (auto) 0.4 L Neutrophils % 30.0 L D Neutrophils % (Manual) 46.5 Band Neutrophils % 0.0 Lymphocytes % 49.2 H D Lymphocytes % (Manual) 35.3 D Monocytes % 19.1 H Monocytes % (Manual) 16 H Eosinophils % 1.2 Eosinophils % (Manual) 1.0 D Basophils % 0.5 Basophils % (Manual) 1.0 D Myelocytes % (Man) 0 Promyelocytes % (Man) 0 Blast Cells % (Manual) 0 Nucleated RBC % 0 0 Metamyelocytes 0 Hypochromia 0 Platelet Estimate Decreased Polychromasia 0 Poikilocytosis 0 Anisocytosis 0 Microcytosis 0 Macrocytosis 0 Sodium 140 Potassium 3.9 Chloride 107 Carbon Dioxide 28 Anion Gap 5 L BUN 5.2 L Creatinine 0.5 L Est GFR (CKD-EPI)AfAm 155.90 Est GFR (CKD-EPI)NonAf 134.52 Random Glucose 84 Calcium 8.6 Phosphorus 3.5 Magnesium 2.1 Total Bilirubin 0.2 AST 93 H ALT 96 H Alkaline Phosphatase 392 H Total Protein 6.9 Albumin 3.1 L Current Medications Generic Name Dose Route Start Last Admin Trade Name Freq PRN Reason Stop Dose Admin Acetaminophen 650 mg 10/24/18 11:16 10/29/18 10:40 Tylenol - PO 650 mg Q6H PRN Administration fever Bacitracin 1 applic 10/26/18 14:45 10/29/18 10:39 Bacitracin - TP 1 applic DAILY RAMANA Administration Docusate Sodium 300 mg 10/26/18 22:00 10/28/18 21:51 Colace - PO 300 mg HS RAMANA Administration Ceftriaxone Sodium 1 gm/ 50 mls @ 100 mls/hr 10/28/18 13:42 10/29/18 10:41 Dextrose IVPB 100 mls/hr DAILY RAMANA Administration Protocol Morphine Sulfate 2 mg 10/24/18 12:58 10/29/18 11:05 Morphine Sulfate IVPUSH 2 mg Q4H PRN Administration PAIN LEVEL 7 - 10 Ondansetron HCl 8 mg 10/28/18 18:47 10/28/18 18:53 Zofran Odt - SL 8 mg Q8H PRN Administration NAUSEA Polyethylene Glycol 17 gm 10/26/18 22:00 10/29/18 10:40 Miralax (For Daily Use) - PO 17 gm BID RAMANA Administration Senna 2 tab 10/28/18 22:00 Senna - PO HS PRN CONSTIPATION Home Medications Medication Instructions Recorded Ondansetron [Zofran -] 10/24/18 ASSESSMENT AND PLAN: 23 year old female with 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 Last chemotherapy at [facility] [place] 10/16. 1. Hemorrhagic Cystitis secondary to Chemotherapy, resolving. No further dysuria /hematuria. Empirically treated with Ceftiaxone for UTI. Urine Cx negative. Will stop after 5th dose abx today. 2. Pancytopenia (Anemia/Neutropenia/Thombocytopenia) sec to recent Chemotherapy (Carboplatin/Gemcitabine) For supportive care. If develops fever, will work up for Neutropenic fever and cover with Cefepime. 3. L flank/shoulder pain - likely caused by L sided pleural effusion, presumed malignant sec to lung mets. 4. Elevated LFTs - possibly sec to cholestasis due to cephalosporin versus recent chemotherapy. Abdominal US negative. last day Cephalosporin today. DVT Px - SCDs. Heparin held due to thrombocytopenia.
[2018-10-29 11:38] LABS: WHITE BLOOD COUNT 1.5 K/mm3 (4.0-10.0)
[2018-10-29] MEDS: SENNOSIDES 8.6MG TABLET (FP) PO SCH ×2 (13:02→21:41)
[2018-10-29 15:02] VITALS: BMI 23.6
--- NOTE | 2018-10-29 20:53 | CON.PSL ---
Psychology Consult Consult Specialty:: Clinical Psychology History Provided By: Patient Limitations to Obtaining History: No Limitations Current Medications: Active Medications Acetaminophen (Tylenol -) 650 mg PO Q6H PRN PRN Reason: fever Last Admin: 10/29/18 10:40 Dose: 650 mg Bacitracin (Bacitracin -) 1 applic TP DAILY [facility] Last Admin: 10/29/18 10:39 Dose: 1 applic Docusate Sodium (Colace -) 300 mg PO HS [facility] Last Admin: 10/28/18 21:51 Dose: 300 mg Ceftriaxone Sodium 1 gm/ (Dextrose) 50 mls @ 100 mls/hr IVPB DAILY [facility]; Protocol Last Admin: 10/29/18 10:41 Dose: 100 mls/hr Morphine Sulfate (Morphine Sulfate) 2 mg IVPUSH Q4H PRN PRN Reason: PAIN LEVEL 7 - 10 Last Admin: 10/29/18 17:02 Dose: 2 mg Ondansetron HCl (Zofran Odt -) 8 mg SL Q8H PRN PRN Reason: NAUSEA Last Admin: 10/28/18 18:53 Dose: 8 mg Polyethylene Glycol (Miralax (For Daily Use) -) 17 gm PO BID [facility] Last Admin: 10/29/18 10:40 Dose: 17 gm Senna (Senna -) 2 tab PO HS [facility] Last Admin: 10/29/18 13:02 Dose: 2 tab Allergies: Allergies Allergy/AdvReac Type Severity Reaction Status Date / Time No Known Allergies Allergy Verified 10/23/18 12:53 Does patient have pain?: No Hx Alcohol Use: Yes (Drinks glass of wine on occasion) Current Medical Exam-Psy Attention: Alert Orientation: Time, Person, Place Immediate Term Memory: 3/3 Expressive: Coherent Receptive: Age Appropriate Comprehension of Spoken Words Hallucinations: Absent Thought Process: Intact Depression: Mild Hopelessness: No Loss of Interest: No Anxiety Level: Mild Danger to Self and Others: No Sleep: Well (In the hospital her sleep is fair.) Appetite: Poor (She lost appetite due to nausea associated with chemotherapy.) Serial Sevens Intact: Yes Repeats 3 words told earlier: 2/3 Support System: Parent Problem List - Problem (1) Mild depression Code(s): F32.0 - MAJOR DEPRESSIVE DISORDER, SINGLE EPISODE, MILD Assessment/Plan The patient was euthymic during the interview but admitted to some mild despondent feelings. She also experiences some anxiety. However, she was receptive to psychotherapeutic intervention. A consultation with Rev. Doyle Zendejas is requested. In addition, a Palliative Care consultation is recommended.
[2018-10-29] MEDS: DOCUSATE SODIUM 100 MG CAPSULE (FP) PO SCH (21:41)
[2018-10-30] MEDS: MORPHINE SULFATE 2 MG/ML VIAL IVPUSH PRN (05:33)
[2018-10-30 08:19] LABS: ALBUMIN 3.1 g/dl (3.4-5.0); BILIRUBIN,TOTAL 0.2 mg/dL (0.2-1); BLOOD UREA NITROGEN 8.5 mg/dL (7-18); CALCIUM 8.6 mg/dL (8.5-10.1); CREATININE 0.5 mg/dL (0.55-1.3); MAGNESIUM 1.8 mg/dL (1.8-2.4); PHOSPHOROUS 3.7 mg/dL (2.5-4.9); POTASSIUM 4.1 mmol/L (3.5-5.1); TOT PROT 7.2 g/dl (6.4-8.2)
[2018-10-30 08:22] LABS: BASO % 0.4 % (0-2.0); EOS % 1.8 % (0-4.5); HEMATOCRIT 29.4 % (32.4-45.2); HEMOGLOBIN 10.1 GM/dL (10.7-15.3); LYMPH % 42.7 % (8-40); MCHC 34.5 g/dl (32.0-36.0); MEAN CELL VOLUME 78.4 fl (80-96); MEAN PLT VOLUME 7.1 fl (7.5-11.1); MONO % 24.4 % (3.8-10.2); NEUT % 30.7 % (42.8-82.8); PLATELET COUNT 160 K/MM3 (134-434); RBC 3.75 M/mm3 (3.60-5.2); RDW 12.7 % (11.6-15.6)
[2018-10-30 09:09] LABS: WHITE BLOOD COUNT 1.2 K/mm3 (4.0-10.0)
[2018-10-30] MEDS ORDERED: MAGNESIUM CITRATE 300 ML BOTTLE PO ONE ×2 (09:43→17:00)
[2018-10-30] MEDS ORDERED: cefTRIAXone SODIUM 1 GM VIAL ONE (10:21)
[2018-10-30] MEDS ORDERED: DEXTROSE 5%-WATER - 50 ML IVPB ONE (10:21)
[2018-10-30] MEDS ORDERED: PT OWN MED DRAWER 7, Y5N ONE ×2 (10:34→16:39)
[2018-10-30] MEDS: oxyCODONE HCL 5 MG TABLET PO PRN ×3 (10:39→22:31)
[2018-10-30] MEDS: CEFTRIAXONE 1 GM in DEXTROSE 5%-WATER - 50 ML IVPB SCH (10:40)
[2018-10-30] MEDS: POLYETHYLENE GLYCOL 3350 119 GM BTL PO SCH ×2 (10:41→22:04)
[2018-10-30] MEDS: BACITRACIN 15 GM TUBE TOPICAL OINTMENT TP SCH (10:45)
[2018-10-30 12:06] LABS: ANISOCYTOSIS 0; MACROCYTOSIS 0; PLATELET ESTIMATE DECREASED
--- NOTE | 2018-10-30 13:23 | PN ---
Physical Exam: SUBJECTIVE: Patient seen and examined at bedside. pt has no acute complaints and states that the pain is improving. The pt still complains of constipation OBJECTIVE: Vital Signs Period Temp Pulse Resp BP Sys/Mendoza Pulse Ox Last 24 Hr 98 F-98.8 F 65-74 16-20 115-141/59-86 96-98 GENERAL: The patient is awake, alert, and fully oriented, in no acute distress. LUNGS: Breath sounds equal, clear to auscultation bilaterally, no wheezes, no crackles, no accessory muscle use. HEART: Regular rate and rhythm, S1, S2 systolic murmur ABDOMEN: Soft, nontender, nondistended, normoactive bowel sounds, no guarding EXTREMITIES: 2+ pulses, warm, well-perfused, no edema. SKIN: Warm, dry, normal turgor, no rashes or lesions noted Laboratory Last Values WBC 1.2 K/mm3 (4.0-10.0) L* 10/30/18 05:10 RBC 3.75 M/mm3 (3.60-5.2) 10/30/18 05:10 Hgb 10.1 GM/dL (10.7-15.3) L 10/30/18 05:10 Hct 29.4 % (32.4-45.2) L 10/30/18 05:10 MCV 78.4 fl (80-96) L 10/30/18 05:10 MCH 27.0 pg (25.7-33.7) 10/30/18 05:10 MCHC 34.5 g/dl (32.0-36.0) 10/30/18 05:10 RDW 12.7 % (11.6-15.6) 10/30/18 05:10 Plt Count 160 K/MM3 (134-434) D 10/30/18 05:10 MPV 7.1 fl (7.5-11.1) L 10/30/18 05:10 Absolute Neuts (auto) 0.4 K/mm3 (1.5-8.0) L 10/30/18 05:10 Total Counted Cancelled 10/30/18 05:10 Neutrophils % 30.7 % (42.8-82.8) L 10/30/18 05:10 Neutrophils % (Manual) 21.8 % (42.8-82.8) L 10/30/18 05:10 Band Neutrophils % 0.0 % 10/30/18 05:10 Lymphocytes % 42.7 % (8-40) H 10/30/18 05:10 Lymphocytes % (Manual) 53.4 % (8-40) H D 10/30/18 05:10 Monocytes % 24.4 % (3.8-10.2) H 10/30/18 05:10 Monocytes % (Manual) 22 % (3.8-10.2) H 10/30/18 05:10 Eosinophils % 1.8 % (0-4.5) 10/30/18 05:10 Eosinophils % (Manual) 2.0 % (0-4.5) D 10/30/18 05:10 Basophils % 0.4 % (0-2.0) 10/30/18 05:10 Basophils % (Manual) 1.0 % (0-2.0) 10/30/18 05:10 Myelocytes % (Man) 0 % (0-2) 10/30/18 05:10 Promyelocytes % (Man) 0 % (0-2) 10/30/18 05:10 Blast Cells % (Manual) 0 % (0-0) 10/30/18 05:10 Nucleated RBC % 0 % (0-0) 10/30/18 05:10 Metamyelocytes 0 % (0-2) 10/30/18 05:10 Differential Comment Cancelled 10/30/18 05:10 Hypersegmented Neuts Cancelled 10/30/18 05:10 Plasma Cells Cancelled 10/30/18 05:10 Smudge Cells Cancelled 10/30/18 05:10 Other Cell Type Cancelled 10/30/18 05:10 Hypochromia 0 10/30/18 05:10 Toxic Granulation Cancelled 10/30/18 05:10 Dohle Bodies Cancelled 10/30/18 05:10 Rishi Rods Cancelled 10/30/18 05:10 Platelet Estimate Decreased 10/30/18 05:10 Platelet Comment Cancelled 10/30/18 05:10 Platelet Comment Cancelled 10/30/18 05:10 Polychromasia 0 10/30/18 05:10 Poikilocytosis 0 10/30/18 05:10 Basophilic Stippling Cancelled 10/30/18 05:10 Anisocytosis 0 10/30/18 05:10 Microcytosis 0 10/30/18 05:10 Macrocytosis 0 10/30/18 05:10 Spherocytes Cancelled 10/30/18 05:10 Siderocytes Cancelled 10/30/18 05:10 Sickle Cells Cancelled 10/30/18 05:10 Target Cells Cancelled 10/30/18 05:10 Tear Drop Cells Cancelled 10/30/18 05:10 Ovalocytes 1+ 10/26/18 06:50 Stomatocytes Cancelled 10/30/18 05:10 Helmet Cells Cancelled 10/30/18 05:10 Ernandez-[place] Bodies Cancelled 10/30/18 05:10 [place] Rings Cancelled 10/30/18 05:10 Ganesh Cells Cancelled 10/30/18 05:10 Acanthocytes (Spur) Cancelled 10/30/18 05:10 Rouleaux Cancelled 10/30/18 05:10 Fragmented RBCs Cancelled 10/30/18 05:10 Schistocytes Cancelled 10/30/18 05:10 Sodium 139 mmol/L (136-145) 10/30/18 05:10 Potassium 4.1 mmol/L (3.5-5.1) 10/30/18 05:10 Chloride 104 mmol/L (98-107) 10/30/18 05:10 Carbon Dioxide 27 mmol/L (21-32) 10/30/18 05:10 Anion Gap 8 MMOL/L (8-16) 10/30/18 05:10 BUN 8.5 mg/dL (7-18) 10/30/18 05:10 Creatinine 0.5 mg/dL (0.55-1.3) L 10/30/18 05:10 Est GFR (CKD-EPI)AfAm 155.90 10/30/18 05:10 Est GFR (CKD-EPI)NonAf 134.52 10/30/18 05:10 Random Glucose 87 mg/dL (74-106) 10/30/18 05:10 Calcium 8.6 mg/dL (8.5-10.1) 10/30/18 05:10 Phosphorus 3.7 mg/dL (2.5-4.9) 10/30/18 05:10 Magnesium 1.8 mg/dL (1.8-2.4) 10/30/18 05:10 Iron 28 ug/dL (50-175) L 10/26/18 06:50 TIBC 255 ug/dL (250-450) 10/26/18 06:50 Iron Saturation 10 % (17.5-39) L 10/26/18 06:50 Unsaturated IBC 227 ug/dL (200-275) 10/26/18 06:50 Ferritin 125.1 ng/ml (8-388) 10/26/18 06:50 Total Bilirubin 0.2 mg/dL (0.2-1) 10/30/18 05:10 Direct Bilirubin 0.2 mg/dL (0.0-0.2) 10/28/18 07:45 AST 82 U/L (15-37) H 10/30/18 05:10 ALT 91 U/L (13-61) H 10/30/18 05:10 Alkaline Phosphatase 410 U/L (45-117) H 10/30/18 05:10 Troponin I < 0.02 ng/ml (0.00-0.05) 10/23/18 14:00 B-Natriuretic Peptide 33.6 pg/ml (5-125) 10/23/18 14:00 Total Protein 7.2 g/dl (6.4-8.2) 10/30/18 05:10 Albumin 3.1 g/dl (3.4-5.0) L 10/30/18 05:10 Urine Color Dk yellow 10/23/18 15:53 Urine Appearance Clear 10/23/18 15:53 Urine pH 6.5 (5.0-8.0) 10/23/18 15:53 Ur Specific [place] 1.024 (1.010-1.035) 10/23/18 15:53 Urine Protein 1+ (NEGATIVE) H 10/23/18 15:53 Urine Glucose (UA) Negative (NEGATIVE) 10/23/18 15:53 Urine Ketones 2+ (NEGATIVE) H 10/23/18 15:53 Urine Blood Negative (NEGATIVE) 10/23/18 15:53 Urine Nitrite Negative (NEGATIVE) 10/23/18 15:53 Urine Bilirubin 1+ (NEGATIVE) H 10/23/18 15:53 Urine Urobilinogen 4.0 e.u/dl mg/dL (0.2-1.0) H 10/23/18 15:53 Ur Leukocyte Esterase 1+ (NEGATIVE) H 10/23/18 15:53 Urine WBC (Auto) 30.5 /hpf (0-5) 10/23/18 15:53 Urine RBC (Auto) 5.1 /hpf (0-4) 10/23/18 15:53 Urine Casts (Auto) 19.20 /lpf (0-8) 10/23/18 15:53 U Epithel Cells (Auto) 0.6 /HPF (0-5/HPF) 10/23/18 15:53 Urine Bacteria (Auto) 63.3 /hpf (NEGATIVE) 10/23/18 15:53 Urine HCG, Qual Negative 10/23/18 15:17 Current Medications Acetaminophen (Tylenol -) 650 mg PO Q6H PRN PRN Reason: fever Last Admin: 10/29/18 10:40 Dose: 650 mg Bacitracin (Bacitracin -) 1 applic TP DAILY [facility] Last Admin: 10/30/18 10:45 Dose: 1 applic Docusate Sodium (Colace -) 300 mg PO HS [facility] Last Admin: 10/29/18 21:41 Dose: 300 mg Ceftriaxone Sodium 1 gm/ (Dextrose) 50 mls @ 100 mls/hr IVPB DAILY [facility]; Protocol Last Admin: 10/30/18 10:40 Dose: 100 mls/hr Ondansetron HCl (Zofran Odt -) 8 mg SL Q8H PRN PRN Reason: NAUSEA Last Admin: 10/28/18 18:53 Dose: 8 mg Oxycodone HCl (Roxicodone -) 5 mg PO Q4H PRN PRN Reason: PAIN LEVEL 6-10 Last Admin: 10/30/18 10:39 Dose: 5 mg Polyethylene Glycol (Miralax (For Daily Use) -) 17 gm PO BID [facility] Last Admin: 10/30/18 10:41 Dose: 17 gm Senna (Senna -) 2 tab PO [facility] Last Admin: 10/29/18 21:41 Dose: 2 tab ASSESSMENT/PLAN: CT Chest: Impression: 12.3 x 12.3 x 9.7 cm left breast mass lesion. Adjacent subcutaneous stranding is noted. Multiple bilateral pulmonary nodules/masses. Left axillary lymphadenopathy. Bilateral internal mammary chain lymphadenopathy. An osteolytic lesion is noted involving the upper third of the sternal body. The thymus demonstrates mild nonspecific thickening and multiple punctate calcifications. Correlate with close follow-up CT to document stability and lack of developing pathology. Trace left pleural effusion. Mild left basilar discoid atelectasis. MRI Thoracic No evidence of disc herniation, central spinal canal stenosis, neural foramina narrowing. Normal signal intensity of the spinal cord. No pathological bone marrow replacement, bone marrow edema is seen. Left pleural effusion. Bilateral lung nodules, masses MRI Lumbar No evidence of disc herniation, spinal canal stenosis, neural foraminal stenosis. Normal signal intensity of the bone marrow. Abdominal U/S IMPRESSION: Small left pleural effusion, otherwise normal abdominal sonogram with no evidence of hepatic pathology. ASSESSMENT/PLAN: 23 yo F PMH of asthma and breast ca with mets presenting to ED w/ L sided flank pain, dysuria, and hematuria. On admission, pt became febrile. Pt has been afebrile now for 24 hours. L scapular/ flank pain possibly 2/2 Hemorrhagic Cystitis: -pt complaing of dysuria, hematura, flank pain 3 days following first chemo treatment - (+) UA, negative U Cx, negative BCx - CT chest: see above -no leukocytosis, pt afebrile for over 24 hrs -s/p ceftriaxone x 5 days -c/w IVF -Renal U/S negative for renal calculus or hydronephrosis - MRI negative, see above -Alk phos increasing may be 2/2 bone mets -morphine 2 mg q4 for pain Pancytopenia -likely 2/2 to chemotherapy on 10/16 -neutropenic precautions -heme /onc following -continue to trend -consider neupogen -thrombocytopenia improving Breast Ca w/ bone mets ( sternal metastasis) -invasive ductal carcinoma of her L breast, locally advanced, ER/AR and HER 2 negative, plus lung and bone M+ -pt receiving Chemotherapy , last dose 10/16. missed dose 10/23 due to admission to [facility] -pt started carboplatin and gemcitabine as her outpt chemo regimen -records obtained from Dr. Collins, pt should f/u with Dr. Collins from [facility] [place] -pt takes ondansetron at home, c/w for nausea -palliative care consult -pt seen by Dr. Rodriguez for psychotherapeutic intervention. Transaminitis likely 2/2 chemotherapy -downtrending -Abdominal U/S no evidence of hepatic pathology. Constipation -recommending miralax and colace - recommending senna and milk of magnesia F/E/N -NS 100mls /hr -Regular diet, ensure -Hypokalemia, hypophosphatemia - resolved DVT ppx: Lovenox Dispo: continue to monitor on medicine floors until medically optimized Visit type - Emergency Visit Emergency Visit: No - New Patient This patient is new to me today: No - Critical Care Critical Care patient: No - Discharge Referral Referred to [facility] Med P.C.: No ATTENDING PHYSICIAN STATEMENT I saw and evaluated the patient. I reviewed the resident's note and discussed the case with the resident. I agree with the resident's findings and plan as documented. SUBJECTIVE: OBJECTIVE: ASSESSMENT AND PLAN:
--- NOTE | 2018-10-30 15:45 | PN ---
Teaching Attending Note Name of Resident: Nancie Cloud ATTENDING PHYSICIAN STATEMENT I saw and evaluated the patient. I reviewed the resident's note and discussed the case with the resident. I agree with the resident's findings and plan as documented. SUBJECTIVE: L sided chest/flank pain intermittent. No further dysuria/ hematuria. No fever/chills. Complains of constipation. OBJECTIVE: Afebrile, hemodynamically Stable. Last Vital Signs Temp Pulse Resp BP Pulse Ox 98.9 F 72 20 117/51 L 96 10/30/18 14:00 10/30/18 14:00 10/30/18 14:00 10/30/18 14:00 10/30/18 09:00 Heart - S1, S2, SM Lungs - clear to auscultation, reduced air entry L base. Breast (examined 10/27 with resident flexographic press set up operator) - Large firm mass Upper outer quadrant L Breast mass with skin ulceration. No surrounding erythema Abdomen - soft, non-tender. Bowel Sounds normal. Extremities - No edema, no calf tenderness. Laboratory Results - last 24 hr 10/29/18 10/30/18 10/30/18 08:05 05:10 05:10 WBC 1.2 L* RBC 3.75 Hgb 10.1 L Hct 29.4 L MCV 78.4 L MCH 27.0 MCHC 34.5 RDW 12.7 Plt Count 160 D MPV 7.1 L Absolute Neuts (auto) 0.4 L Total Counted Cancelled Neutrophils % 30.7 L Neutrophils % (Manual) Cancelled 21.8 L Band Neutrophils % Cancelled 0.0 Lymphocytes % 42.7 H Lymphocytes % (Manual) Cancelled 53.4 H D Monocytes % 24.4 H Monocytes % (Manual) Cancelled 22 H Eosinophils % 1.8 Eosinophils % (Manual) Cancelled 2.0 D Basophils % 0.4 Basophils % (Manual) Cancelled 1.0 Myelocytes % (Man) Cancelled 0 Promyelocytes % (Man) Cancelled 0 Blast Cells % (Manual) Cancelled 0 Nucleated RBC % 0 Metamyelocytes Cancelled 0 Differential Comment Cancelled Hypersegmented Neuts Cancelled Plasma Cells Cancelled Smudge Cells Cancelled Other Cell Type Cancelled Hypochromia Cancelled 0 Toxic Granulation Cancelled Dohle Bodies Cancelled Rishi Rods Platelet Estimate Decreased Platelet Comment Cancelled Polychromasia Cancelled 0 Poikilocytosis Cancelled 0 Basophilic Stippling Cancelled Anisocytosis Cancelled 0 Microcytosis Cancelled 0 Macrocytosis Cancelled 0 Spherocytes Cancelled Siderocytes Cancelled Sickle Cells Cancelled Target Cells Cancelled Tear Drop Cells Cancelled Ovalocytes Cancelled Stomatocytes Cancelled Helmet Cells Cancelled Ernandez-[place] Bodies Cancelled [place] Rings Cancelled [place] Cells Cancelled Acanthocytes (Spur) Cancelled Rouleaux Cancelled Fragmented RBCs Cancelled Schistocytes Cancelled Sodium 139 Potassium 4.1 Chloride 104 Carbon Dioxide 27 Anion Gap 8 BUN 8.5 Creatinine 0.5 L Est GFR (CKD-EPI)AfAm 155.90 Est GFR (CKD-EPI)NonAf 134.52 Random Glucose 87 Calcium 8.6 Phosphorus 3.7 Magnesium 1.8 Total Bilirubin 0.2 AST 82 H ALT 91 H Alkaline Phosphatase 410 H Total Protein 7.2 Albumin 3.1 L 10/30/18 05:10 WBC RBC Hgb Hct MCV MCH MCHC RDW Plt Count MPV Absolute Neuts (auto) Total Counted Cancelled Neutrophils % Neutrophils % (Manual) Cancelled Band Neutrophils % Cancelled Lymphocytes % Lymphocytes % (Manual) Cancelled Monocytes % Monocytes % (Manual) Cancelled Eosinophils % Eosinophils % (Manual) Cancelled Basophils % Basophils % (Manual) Cancelled Myelocytes % (Man) Cancelled Promyelocytes % (Man) Cancelled Blast Cells % (Manual) Cancelled Nucleated RBC % Cancelled Metamyelocytes Cancelled Differential Comment Cancelled Hypersegmented Neuts Cancelled Plasma Cells Cancelled Smudge Cells Cancelled Other Cell Type Cancelled Hypochromia Cancelled Toxic Granulation Cancelled Dohle Bodies Cancelled Rishi Rods Cancelled Platelet Estimate Cancelled Platelet Comment Cancelled Polychromasia Cancelled Poikilocytosis Cancelled Basophilic Stippling Cancelled Anisocytosis Cancelled Microcytosis Cancelled Macrocytosis Cancelled Spherocytes Cancelled Siderocytes Cancelled Sickle Cells Cancelled Target Cells Cancelled Tear Drop Cells Cancelled Ovalocytes Cancelled Stomatocytes Cancelled Helmet Cells Cancelled Ernandez-[place] Bodies Cancelled [place] Rings Cancelled [place] Cells Cancelled Acanthocytes (Spur) Cancelled Rouleaux Cancelled Fragmented RBCs Cancelled Schistocytes Cancelled Sodium Potassium Chloride Carbon Dioxide Anion Gap BUN Creatinine Est GFR (CKD-EPI)AfAm Est GFR (CKD-EPI)NonAf Random Glucose Calcium Phosphorus Magnesium Total Bilirubin AST ALT Alkaline Phosphatase Total Protein Albumin Current Medications Generic Name Dose Route Start Last Admin Trade Name Freq PRN Reason Stop Dose Admin Acetaminophen 650 mg 10/24/18 11:16 10/29/18 10:40 Tylenol - PO 650 mg Q6H PRN Administration fever Bacitracin 1 applic 10/26/18 14:45 10/30/18 10:45 Bacitracin - TP 1 applic DAILY [facility] Administration Docusate Sodium 300 mg 10/26/18 22:00 10/29/18 21:41 Colace - PO 300 mg HS [facility] Administration Ceftriaxone Sodium 1 gm/ 50 mls @ 100 mls/hr 10/28/18 13:42 10/30/18 10:40 Dextrose IVPB 100 mls/hr DAILY [facility] Administration Protocol Ondansetron HCl 8 mg 10/28/18 18:47 10/28/18 18:53 Zofran Odt - SL 8 mg Q8H PRN Administration NAUSEA Oxycodone HCl 5 mg 10/30/18 09:44 10/30/18 10:39 Roxicodone - PO 5 mg Q4H PRN Administration PAIN LEVEL 6-10 Polyethylene Glycol 17 gm 10/26/18 22:00 10/30/18 10:41 Miralax (For Daily Use) - PO 17 gm BID [facility] Administration Senna 2 tab 10/29/18 12:30 10/29/18 21:41 Senna - PO 2 tab HS [facility] Administration ASSESSMENT AND PLAN: 23 year old female with 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 Last chemotherapy at [facility] 10/16. 1. Hemorrhagic Cystitis secondary to Chemotherapy, resolving. No further dysuria /hematuria. Empirically treated with Ceftiaxone for UTI, completed course. Urine Cx negative. 2. Pancytopenia (Anemia/Neutropenia/Thombocytopenia) sec to recent Chemotherapy (Carboplatin/Gemcitabine) for locally fungating/metastatic Breast Ca Ongoing neutropenia - Neut 0.4 For supportive care. If develops fever, will work up for Neutropenic fever and cover with Cefepime. Oncology following - ? Neupogen Local wound care with Bacitracin. 3. L flank/shoulder pain - likely caused by L sided pleural effusion, presumed malignant sec to lung mets. Will change IV morphine to oxycodone. 4. Elevated LFTs - possibly sec to cholestasis due to cephalosporin versus recent chemotherapy. Abdominal US negative. Completed cephalosporin course. 5. Constipation, opiate induced - will give Mg Citrate in addition to Miralax, Colace, Docusate. Will also start Relistor. DVT Px - SCDs. Heparin held due to thrombocytopenia. Dispo - Palliative consult placed for symptom management. Poor prognosis due to advanced presentation.
[2018-10-30] MEDS: ENOXAPARIN NA (PORCINE) 40 MG/0.4 ML DISP.SYRIN SQ SCH (16:36)
[2018-10-30] MEDS: ACETAMINOPHEN 325 MG TABLET (FP) PO PRN ×2 (16:36→22:30)
[2018-10-30] MEDS: Methylnaltrexone Bromide 12 MG/0.6 ML KIT SQ SCH (17:39)
--- NOTE | 2018-10-30 19:15 | PN ---
Progress Note (short form) - Note Progress Note: Patient seen and examined Feels OK AFVSS Cor: RSR, No murmurs, No gallops Lungs: Clear to P&A Abd: Soft, Normal bowel sounds, No organomegaly Ext:No significant edema Labs/meds reviewed A/P 23 y/o patient with metastatic breast cancer , s/p gemzar/carboplatin C1 D15 neutropenia delayed terri will dose granix 300mcg sc once on 10/31 No obvious infection check B!2/folate/iron studies/ TSH
[2018-10-30] MEDS: DOCUSATE SODIUM 100 MG CAPSULE (FP) PO SCH (22:04)
[2018-10-30] MEDS: SENNOSIDES 8.6MG TABLET (FP) PO SCH (22:04)
[2018-10-31] MEDS: oxyCODONE HCL 5 MG TABLET PO PRN ×2 (08:50→18:09)
[2018-10-31] MEDS: ACETAMINOPHEN 325 MG TABLET (FP) PO PRN ×2 (08:51→18:08)
[2018-10-31] MEDS ORDERED: MAGNESIUM CITRATE 300 ML BOTTLE PO ONE (09:18)
[2018-10-31 10:22] LABS: BASO % 0.4 % (0-2.0); EOS % 1.6 % (0-4.5); HEMOGLOBIN 11.3 GM/dL (10.7-15.3); LYMPH % 45.7 % (8-40); MCHC 34.2 g/dl (32.0-36.0); MEAN CELL VOLUME 78.9 fl (80-96); MEAN PLT VOLUME 6.6 fl (7.5-11.1); MONO % 23.6 % (3.8-10.2); NEUT % 28.7 % (42.8-82.8); PLATELET COUNT 244 K/MM3 (134-434); RBC 4.18 M/mm3 (3.60-5.2); RDW 12.8 % (11.6-15.6)
[2018-10-31 10:54] LABS: WHITE BLOOD COUNT 1.2 K/mm3 (4.0-10.0)
[2018-10-31] MEDS ORDERED: PT OWN MED DRAWER 7, Y5N ONE (11:31)
[2018-10-31] MEDS: BACITRACIN 15 GM TUBE TOPICAL OINTMENT TP SCH (11:41)
[2018-10-31] MEDS: ENOXAPARIN NA (PORCINE) 40 MG/0.4 ML DISP.SYRIN SQ SCH (11:41)
[2018-10-31] MEDS: POLYETHYLENE GLYCOL 3350 119 GM BTL PO SCH ×2 (11:42→21:23)
[2018-10-31] MEDS: Methylnaltrexone Bromide 12 MG/0.6 ML KIT SQ SCH (11:42)
[2018-10-31] MEDS ORDERED: TBO-FILGRASTIM 300 MCG/0.5 ML DISP.SYRINGE SQ ONE (11:45)
--- NOTE | 2018-10-31 12:21 | PN ---
Physical Exam: SUBJECTIVE: Patient seen and examined at bedside. Pt has no acute complaints. Pt had BM last night OBJECTIVE: Vital Signs Period Temp Pulse Resp BP Sys/Mendoza Pulse Ox Last 24 Hr 98 F-98.9 F 60-76 18-20 117-133/51-72 97-97 GENERAL: The patient is awake, alert, and fully oriented, in no acute distress. LUNGS: Breath sounds equal, clear to auscultation bilaterally, no wheezes, no crackles, no accessory muscle use. HEART: Regular rate and rhythm, S1, S2 , systolic murmur ABDOMEN: Soft, nontender, nondistended, normoactive bowel sounds, no guarding EXTREMITIES: 2+ pulses, warm, well-perfused, no edema. SKIN: Warm, dry, normal turgor, no rashes or lesions noted CBC, BMP 10/31/18 10:05 10/30/18 05:10 Current Medications Acetaminophen (Tylenol -) 650 mg PO Q6H PRN PRN Reason: fever Last Admin: 10/31/18 08:51 Dose: 650 mg Bacitracin (Bacitracin -) [address] [facility] Last Admin: 10/31/18 11:41 Dose: 1 applic Docusate Sodium (Colace -) [address] [facility] Last Admin: 10/30/18 22:04 Dose: 300 mg Enoxaparin Sodium (Lovenox -) [address] [facility] Last Admin: 10/31/18 11:41 Dose: 40 mg Methylnaltrexone [place] (Relistor -) [address] [facility] Last Admin: 10/31/18 11:42 Dose: 12 mg Ondansetron HCl (Zofran Odt -) 8 mg SL Q8H PRN PRN Reason: NAUSEA Last Admin: 10/28/18 18:53 Dose: 8 mg Oxycodone HCl (Roxicodone -) 5 mg PO Q4H PRN PRN Reason: PAIN LEVEL 6-10 Last Admin: 10/31/18 08:50 Dose: 5 mg Polyethylene Glycol (Miralax (For Daily Use) -) [address] [facility] Last Admin: 10/31/18 11:42 Dose: 17 gm Senna (Senna -) [address] [facility] Last Admin: 10/30/18 22:04 Dose: [address] Chest: Impression: 12.3 x 12.3 x 9.7 cm left breast mass lesion. Adjacent subcutaneous stranding is noted. Multiple bilateral pulmonary nodules/masses. Left axillary lymphadenopathy. Bilateral internal mammary chain lymphadenopathy. An osteolytic lesion is noted involving the upper third of the sternal body. The thymus demonstrates mild nonspecific thickening and multiple punctate calcifications. Correlate with close follow-up CT to document stability and lack of developing pathology. Trace left pleural effusion. Mild left basilar discoid atelectasis. MRI Thoracic No evidence of disc herniation, central spinal canal stenosis, neural foramina narrowing. Normal signal intensity of the spinal cord. No pathological bone marrow replacement, bone marrow edema is seen. Left pleural effusion. Bilateral lung nodules, masses MRI Lumbar No evidence of disc herniation, spinal canal stenosis, neural foraminal stenosis. Normal signal intensity of the bone marrow. Abdominal U/S IMPRESSION: Small left pleural effusion, otherwise normal abdominal sonogram with no evidence of hepatic pathology. ASSESSMENT/PLAN: 23 yo F PMH of asthma and breast ca with mets presenting to ED w/ L sided flank pain, dysuria, and hematuria. On admission, pt became febrile. Pt has been afebrile now for 24 hours. L scapular/ flank pain possibly 2/2 Hemorrhagic Cystitis: -pt complaing of dysuria, hematura, flank pain 3 days following first chemo treatment - (+) UA, negative U Cx, negative BCx - CT chest: see above -no leukocytosis, pt afebrile for over 24 hrs -s/p ceftriaxone x 5 days -c/w IVF -Renal U/S negative for renal calculus or hydronephrosis - MRI negative, see above -Alk phos increasing may be 2/2 bone mets -oxycodone 5 mg q4 for pain Pancytopenia -likely 2/2 to chemotherapy on 10/16 -neutropenic precautions -heme /onc following -continue to trend -consider neupogen -thrombocytopenia improving Breast Ca w/ bone mets ( sternal metastasis) -invasive ductal carcinoma of her L breast, locally advanced, ER/CT and HER 2 negative, plus lung and bone M+ -pt receiving Chemotherapy , last dose 10/16. missed dose 10/23 due to admission to [facility] -pt started carboplatin and gemcitabine as her outpt chemo regimen -records obtained from Dr. Collins, pt should f/u with Dr. Collins from [facility] -pt takes ondansetron at home, c/w for nausea -palliative care consult -pt seen by Dr. Rodriguez for psychotherapeutic intervention. Transaminitis likely 2/2 chemotherapy -downtrending -Abdominal U/S no evidence of hepatic pathology. Constipation -recommending miralax and colace - recommending senna and milk of magnesia F/E/N -NS 100mls /hr -Regular diet, ensure -Hypokalemia, hypophosphatemia - resolved DVT ppx: Lovenox Dispo: continue to monitor on medicine floors until medically optimized Visit type - Emergency Visit Emergency Visit: No - New Patient This patient is new to me today: No - Critical Care Critical Care patient: No - Discharge Referral Referred to [facility] Med P.C.: No ATTENDING PHYSICIAN STATEMENT I saw and evaluated the patient. I reviewed the resident's note and discussed the case with the resident. I agree with the resident's findings and plan as documented. SUBJECTIVE: OBJECTIVE: ASSESSMENT AND PLAN:
--- NOTE | 2018-10-31 13:45 | PN ---
Teaching Attending Note Name of Resident: Nancie Cloud ATTENDING PHYSICIAN STATEMENT I saw and evaluated the patient. I reviewed the resident's note and discussed the case with the resident. I agree with the resident's findings and plan as documented. SUBJECTIVE: L sided chest/flank pain intermittent, controlled on oxy. No further dysuria/hematuria. No fever/chills. Passed BM yesterday. OBJECTIVE: Afebrile, hemodynamically Stable. Last Vital Signs Temp Pulse Resp BP Pulse Ox 98.6 F 76 18 125/62 97 10/31/18 10:00 10/31/18 10:00 10/31/18 10:00 10/31/18 10:00 10/31/18 09:00 Heart - S1, S2, SM Lungs - clear to auscultation, reduced air entry L base. Breast (examined 10/27 with resident backend developer) - Large firm mass Upper outer quadrant L Breast mass with skin ulceration. No surrounding erythema Abdomen - soft, non-tender. Bowel Sounds normal. Extremities - No edema, no calf tenderness. Laboratory Results - last 24 hr 10/31/18 10:05 WBC 1.2 L* RBC 4.18 Hgb 11.3 Hct 33.0 MCV 78.9 L MCH 27.0 MCHC 34.2 RDW 12.8 Plt Count 244 D MPV 6.6 L Absolute Neuts (auto) 0.4 L Neutrophils % 28.7 L Lymphocytes % 45.7 H Monocytes % 23.6 H Eosinophils % 1.6 Basophils % 0.4 Nucleated RBC % 0 Current Medications Generic Name Dose Route Start Last Admin Trade Name Freq PRN Reason Stop Dose Admin Acetaminophen 650 mg 10/24/18 11:16 10/31/18 08:51 Tylenol - PO 650 mg Q6H PRN Administration fever Bacitracin 1 applic 10/26/18 14:45 10/31/18 11:41 Bacitracin - TP 1 applic DAILY RAMANA Administration Docusate Sodium 300 mg 10/26/18 22:00 10/30/18 22:04 Colace - PO 300 mg HS RAMANA Administration Enoxaparin Sodium 40 mg 10/30/18 16:00 10/31/18 11:41 Lovenox - SQ 40 mg DAILY RAMANA Administration Methylnaltrexone [place] 12 mg 10/30/18 16:30 10/31/18 11:42 Relistor - SQ 12 mg DAILY RAMANA Administration Ondansetron HCl 8 mg 10/28/18 18:47 10/28/18 18:53 Zofran Odt - SL 8 mg Q8H PRN Administration NAUSEA Oxycodone HCl 5 mg 10/30/18 09:44 10/31/18 08:50 Roxicodone - PO 5 mg Q4H PRN Administration PAIN LEVEL 6-10 Polyethylene Glycol 17 gm 10/31/18 09:18 10/31/18 11:42 Miralax (For Daily Use) - PO 17 gm BID RAMANA Administration Senna 2 tab 10/29/18 12:30 10/30/18 22:04 Senna - PO 2 tab HS RAMANA Administration Home Medications Medication Instructions Recorded Ondansetron [Zofran -] 1 tab TID 10/24/18 Oxycodone HCl/Acetaminophen 1 tab PO TID PRN 10/30/18 [Percocet 5-325 mg Tablet] ASSESSMENT AND PLAN: 23 year old female with 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 Last chemotherapy at [facility] 10/16. 1. Hemorrhagic Cystitis secondary to Chemotherapy, resolved. No further dysuria/ hematuria. Empirically treated with Ceftiaxone for UTI, completed course. Urine Cx negative. 2. Pancytopenia (Anemia/Neutropenia/Thombocytopenia) sec to recent Chemotherapy (Carboplatin/Gemcitabine) for locally fungating/metastatic Breast Ca Ongoing neutropenia For supportive care. If develops fever, will work up for Neutropenic fever and cover with Cefepime. Oncology following - to receive a dose of filgastrim today. Monitor counts. Local wound care with Bacitracin. 3. L flank/shoulder pain - likely caused by L sided pleural effusion, presumed malignant sec to lung mets. Pain controlled on oxycodone. 4. Elevated LFTs - possibly sec to cholestasis due to cephalosporin versus recent chemotherapy. Abdominal US negative. Completed cephalosporin course. 5. Constipation, opiate induced - will give Mg Citrate in addition to Miralax, Colace, Docusate. Started on Relistor. DVT Px - Lovenox SQ Dispo - Palliative consult placed for symptom management. Poor prognosis due to advanced presentation.
[2018-10-31 15:13] LABS: ANISOCYTOSIS 0; MACROCYTOSIS 0; PLATELET ESTIMATE NORMAL
[2018-10-31] MEDS: DOCUSATE SODIUM 100 MG CAPSULE (FP) PO SCH (21:10)
[2018-10-31] MEDS: SENNOSIDES 8.6MG TABLET (FP) PO SCH (21:11)
[2018-11-01] MEDS: oxyCODONE HCL 5 MG TABLET PO PRN (08:22)
[2018-11-01 08:29] LABS: BASO % 0.2 % (0-2.0); EOS % 0.3 % (0-4.5); HEMATOCRIT 32.5 % (32.4-45.2); HEMOGLOBIN 11.2 GM/dL (10.7-15.3); LYMPH % 15.1 % (8-40); MCH 26.9 pg (25.7-33.7); MCHC 34.4 g/dl (32.0-36.0); MEAN CELL VOLUME 78.2 fl (80-96); MEAN PLT VOLUME 6.7 fl (7.5-11.1); MONO % 15.2 % (3.8-10.2); NEUT % 69.2 % (42.8-82.8); PLATELET COUNT 314 K/MM3 (134-434); RBC 4.15 M/mm3 (3.60-5.2); RDW 12.8 % (11.6-15.6); WHITE BLOOD COUNT 4.6 K/mm3 (4.0-10.0)
[2018-11-01 08:53] LABS: BLOOD UREA NITROGEN 9.9 mg/dL (7-18); CALCIUM 8.8 mg/dL (8.5-10.1); CREATININE 0.6 mg/dL (0.55-1.3); PHOSPHOROUS 2.9 mg/dL (2.5-4.9); POTASSIUM 4.2 mmol/L (3.5-5.1)
[2018-11-01] MEDS: POLYETHYLENE GLYCOL 3350 119 GM BTL PO SCH (09:56)
[2018-11-01] MEDS: Methylnaltrexone Bromide 12 MG/0.6 ML KIT SQ SCH ×2 (09:56→12:52)
[2018-11-01] MEDS: ENOXAPARIN NA (PORCINE) 40 MG/0.4 ML DISP.SYRIN SQ SCH (09:56)
[2018-11-01 09:59] VITALS: BP 125/58; PULSE 65; TEMP 98.5
[2018-11-01] MEDS: BACITRACIN 15 GM TUBE TOPICAL OINTMENT TP SCH (12:11)
--- NOTE | 2018-11-01 12:29 | DS ---
Physical Exam: SUBJECTIVE: L sided chest/flank pain intermittent, improved, controlled on oxy. No further dysuria/hematuria. No fever/chills. Passed BM yesterday. OBJECTIVE: Afebrile, hemodynamically Stable. Last Vital Signs Temp Pulse Resp BP Pulse Ox 98.6 F 76 18 125/62 97 10/31/18 10:00 10/31/18 10:00 10/31/18 10:00 10/31/18 10:00 10/31/18 09:00 Heart - S1, S2, SM Lungs - clear to auscultation, reduced air entry L base. Breast (examined 10/27 with resident collaborating supervising physician) - Large firm mass Upper outer quadrant L Breast mass with skin ulceration. No surrounding erythema Abdomen - soft, non-tender. Bowel Sounds normal. Extremities - No edema, no calf tenderness. Laboratory Results - last 24 hr 10/31/18 10:05 WBC 1.2 L* RBC 4.18 Hgb 11.3 Hct 33.0 MCV 78.9 L MCH 27.0 MCHC 34.2 RDW 12.8 Plt Count 244 D MPV 6.6 L Absolute Neuts (auto) 0.4 L Neutrophils % 28.7 L Lymphocytes % 45.7 H Monocytes % 23.6 H Eosinophils % 1.6 Basophils % 0.4 Nucleated RBC % 0 Discharge Medications Medication Instructions Recorded Ondansetron [Zofran -] 1 tab TID 10/24/18 Oxycodone HCl/Acetaminophen 1 tab PO TID PRN 10/30/18 [Percocet 5-325 mg Tablet] Bacitracin - [Bacitracin Topical 1 applic TP DAILY tube 11/01/18 Ointment -] Docusate Sodium [Colace -] 100 mg PO BID 30 Days #60 capsule 11/01/18 Methylnaltrexone [place] [Relistor 12 mg SQ DAILY 15 Days #15 kit 11/01/18 -] Ondansetron [Zofran Odt -] 8 mg SL Q8H PRN tab.rapdis 11/01/18 Polyethylene Glycol 3350 [Miralax 17 gm PO BID #1 bottle 11/01/18 119 gm Btl -] Sennosides [Senna -] 2 tab PO HS 30 Days #60 tablet 11/01/18 oxyCODONE HCL [Roxicodone -] 5 mg PO Q4H PRN tablet MDD 15mg 11/01/18 Date of Admission:10/23/18 Date of Discharge: 11/01/18 Minutes to complete discharge: 40 Discharge Summary Reason For Visit: LEFT FLANK PAIN Current Active Problems Fever (Acute) Leukopenia due to antineoplastic chemotherapy (Acute) Metastatic breast cancer (Acute) Mild depression (Acute) Pyelonephritis (Acute) Urinary incontinence (Acute) Hospital Course: 23 year old female with 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 Last chemotherapy at [facility] 10/16. 1. Hemorrhagic Cystitis secondary to Chemotherapy, resolved. No further dysuria/ hematuria. Empirically treated with Ceftiaxone for UTI, completed course. Urine Cx negative. Afebrile, hemodynamically stable, medically optimized for discharge. 2. Pancytopenia (Anemia/Neutropenia/Thombocytopenia) sec to recent Chemotherapy (Carboplatin/Gemcitabine) for locally fungating/metastatic Breast Ca Resolved s/p 1 dose Filgastrim - WBC today 4.2. Afebrile. Local wound care with Bacitracin. Evaluated and followed by Oncology, now for return to [facility] for ongoing chemotherapy for Breast Ca treatment. 3. L flank/shoulder pain - likely caused by L sided pleural effusion, presumed malignant sec to lung mets. Pain controlled on oxycodone. Further management as per [facility]. 4. Elevated LFTs - possibly sec to cholestasis due to cephalosporin versus recent chemotherapy. Abdominal US negative. Completed cephalosporin course. 5. Constipation, opiate induced - responded to Miralax, Colace, Docusate, MagCitrate, Relistor. Medically optimized for discharge with [facility] follow up next week for ongoing cancer care and continuation of chemotherapeutic regimen. Condition: Stable - Instructions Diet, Activity, Other Instructions: You were admitted with symptoms of a urinary tract infection and treated with antibiotic course. You also complained of L sided chest pain, worse on inspiration, found to have some pleural fluid/effusion likely related to your underlying malignancy, for which you are being treated at [facility]. You remained without fever for your hospital stay, which was mildly prolonged due to low white blood cell counts. This was due to your recent chemotherapy. Currently your white counts are within normal range, after receiving 1 dose of Filgastrim. You also complained of constipation, likely secondary to opiate use. You were started on a bowel regimen that included colace, senna, miralax, and initiation on relistor for opiate induced constipation. Please follow with your Oncologist for guidance regarding further management of your oncological diagnosis and to schedule round 2 of chemotherapy. For the local uceration on the left breast, please continue to use bacitracin ointment and dry dressings. Disposition: HOME - Home Medications Comprehensive Discharge Medication List: Ambulatory Orders Ondansetron [Zofran -] 1 tab TID 10/24/18 Oxycodone HCl/Acetaminophen [Percocet 5-325 mg Tablet] 1 tab PO TID PRN Bacitracin - [Bacitracin Topical Ointment -] 1 applic TP DAILY tube 11/01/18 Docusate Sodium [Colace -] 100 mg PO BID 30 Days #60 capsule 11/01/18 Methylnaltrexone [place] [Relistor -] 12 mg SQ DAILY 15 Days #15 kit 11/01/18 Ondansetron [Zofran Odt -] 8 mg SL Q8H PRN tab.rapdis 11/01/18 Polyethylene Glycol 3350 [Miralax 119 gm Btl -] 17 gm PO BID #1 bottle 11/01/18 Sennosides [Senna -] 2 tab PO HS 30 Days #60 tablet 11/01/18 oxyCODONE HCL [Roxicodone -] 5 mg PO Q4H PRN tablet MDD 15mg 11/01/18 Problem List - Problems (1) Leukopenia due to antineoplastic chemotherapy Code(s): D70.1 - AGRANULOCYTOSIS SECONDARY TO CANCER CHEMOTHERAPY; T45.1X5A - ADVERSE EFFECT OF ANTINEOPLASTIC AND IMMUNOSUP DRUGS, INIT (2) Hemorrhagic cystitis Code(s): N30.91 - CYSTITIS, UNSPECIFIED WITH HEMATURIA This patient is new to me today: No Emergency Visit: Yes ED Registration Date: 10/23/18 Care time: The patient presented to the Emergency Department on the above date and was hospitalized for further evaluation of their emergent condition. Critical Care patient: No - Discharge Referral Referred to [facility] Med P.C.: No
== END 2018-11-01 14:30 | disposition home or self-care (01) | DRG 660 ==
LOC: JER 12:46 → JERBED 20:59 → J6S 23:02
PROVIDERS: ADMIT Internal Medicine
DX: D70.1 Agranulocytosis secondary to cancer chemotherapy (principal); N39.0 Urinary tract infection, site not specified; N12 Tubulo-interstitial nephritis, not specified as acute or chronic; C50.919 Malignant neoplasm of unspecified site of unspecified female breast; C78.00 Secondary malignant neoplasm of unspecified lung; C79.51 Secondary malignant neoplasm of bone; J45.909 Unspecified asthma, uncomplicated; E87.6 Hypokalemia; E83.39 Other disorders of phosphorus metabolism; R50.9 Fever, unspecified; D63.8 Anemia in other chronic diseases classified elsewhere; T45.1X5A Adverse effect of antineoplastic and immunosuppressive drugs, initial encounter; D64.9 Anemia, unspecified; D69.6 Thrombocytopenia, unspecified; M25.519 Pain in unspecified shoulder; J90 Pleural effusion, not elsewhere classified; D70.2 Other drug-induced agranulocytosis; Z51.11 Encounter for antineoplastic chemotherapy; R32 Unspecified urinary incontinence; L98.498 Non-pressure chronic ulcer of skin of other sites with other specified severity; K59.00 Constipation, unspecified; N32.0 Bladder-neck obstruction; K59.03 Drug induced constipation; T40.2X5A Adverse effect of other opioids, initial encounter
CPT/HCPCS: 36415; 71045-TC-FY; 71250-TC; 72146-TC; 72148-TC; 76700-TC; 76775-TC; 80048; 80053; 80076; 81003; 82728; 83540; 83550; 83735; 83880; 84100; 84484; 84703; 85025; 87040; 87086; 87491; 87591; 93005; 93010; 99283-25; J0131; J1447; J7030; Q0162

== ENCOUNTER 2019-02-26 16:05 | Inpatient (IN) | payer OTHER ==
[2019-02-26] MEDS ORDERED: SODIUM CHLORIDE 1,000 ML IV STA (18:05)
[2019-02-26] MEDS ORDERED: ACETAMINOPHEN 1000 MG/100 ML VIAL (NON FORMULARY) IVPB ONE (18:05)
[2019-02-26] MEDS ORDERED: ACETAMINOPHEN INJECTION 100 ML IVPB ONE (18:22)
[2019-02-26 18:55] LABS: BASO % 0.1 % (0-2.0); EOS % 0.6 % (0-4.5); HEMATOCRIT 38.4 % (32.4-45.2); HEMOGLOBIN 12.9 GM/dL (10.7-15.3); LYMPH % 14.2 % (8-40); MCH 29.5 pg (25.7-33.7); MCHC 33.7 g/dl (32.0-36.0); MEAN CELL VOLUME 87.4 fl (80-96); MEAN PLT VOLUME 6.8 fl (7.5-11.1); MONO % 2.5 % (3.8-10.2); NEUT % 82.6 % (42.8-82.8); PLATELET COUNT 50 K/MM3 (134-434); RBC 4.39 M/mm3 (3.60-5.2)
[2019-02-26 18:59] LABS: HYALINE CASTS 49 /lpf (0-8); URINE APPEARANCE CLEAR; URINE BACTERIA 27.9 /hpf (NEGATIVE); URINE BILIRUBIN NEGATIVE (NEGATIVE); URINE COLOR DK YELLOW; URINE GLUCOSE (UA) NEGATIVE (NEGATIVE); URINE KETONE 4+ (NEGATIVE); URINE LEUK ESTERASE 1+ (NEGATIVE); URINE NITRITE NEGATIVE (NEGATIVE); URINE PROTEIN 3+ (NEGATIVE); URINE WBC 46 /hpf (0-5)
[2019-02-26 19:15] LABS: ALBUMIN 4.7 g/dl (3.4-5.0); BILIRUBIN,TOTAL 0.7 mg/dL (0.2-1); BLOOD UREA NITROGEN 8.1 mg/dL (7-18); CALCIUM 9.2 mg/dL (8.5-10.1); POTASSIUM 3.2 mmol/L (3.5-5.1); TOT PROT 9.5 g/dl (6.4-8.2)
[2019-02-26] MEDS ORDERED: POTASSIUM CHLORIDE ORAL LIQUID 20 MEQ/15 ML PO ONE (19:16)
[2019-02-26 19:38] LABS: URINE RBC 0-4 /hpf (0-4)
[2019-02-26] MEDS ORDERED: CEPHALEXIN MONOHYDRATE 500 MG CAPSULE (UD) PO ONE (20:28)
[2019-02-26] MEDS ORDERED: POTASSIUM CHLORIDE ORAL LIQUID 20 MEQ/15 ML ONE (21:05)
[2019-02-26] MEDS ORDERED: CEPHALEXIN MONOHYDRATE 500 MG CAPSULE (UD) ONE (21:05)
--- NOTE | 2019-02-26 22:17 | PDOC ---
History of Present Illness - General Chief Complaint: Urinary Problem Stated Complaint: BLOOD IN URINE Time Seen by Provider: 02/26/19 16:58 History Source: Patient Exam Limitations: No Limitations Past History - Past Medical History Allergies/Adverse Reactions: Allergies Allergy/AdvReac Type Severity Reaction Status Date / Time No Known Allergies Allergy Verified 02/26/19 16:12 Home Medications: Ambulatory Orders Ondansetron [Zofran -] 1 tab TID 10/24/18 Oxycodone HCl/Acetaminophen [Percocet 5-325 mg Tablet] 1 tab PO TID PRN Bacitracin - [Bacitracin Topical Ointment -] 1 applic TP DAILY tube 11/01/18 Bacitracin - [Bacitracin Topical Ointment -] 1 applic TP DAILY 30 Days #1 applic 11/01/18 Docusate Sodium [Colace -] 100 mg PO BID 30 Days #60 capsule 11/01/18 Methylnaltrexone [place] [Relistor -] 12 mg SQ DAILY 15 Days #15 kit 11/01/18 Ondansetron [Zofran *Odt*] 8 mg SL Q8H PRN tab.rapdis 11/01/18 Polyethylene Glycol 3350 [Miralax 119 gm Btl -] 17 gm PO BID #1 bottle 11/01/18 Sennosides [Senna -] 2 tab PO HS 30 Days #60 tablet 11/01/18 oxyCODONE HCL [Roxicodone -] 5 mg PO Q4H PRN tablet MDD 15mg 11/01/18 Asthma: Yes Cancer: Yes (lt breast) Cardiac Disorders: No COPD: No Diabetes: No HTN: No Seizures: No Thyroid Disease: No - Reproductive History (#): 2 Para: 1 Therapeutic (s) & number: No Spontaneous : 0 - Psycho Social/Smoking Cessation Hx Smoking Status: No Smoking History: Current every day smoker Have you smoked in the past 12 months: No Number of Cigarettes Smoked Daily: 4 Information on smoking cessation initiated: No 'Breaking Loose' booklet given: 05/27/15 Hx Alcohol Use: Yes (Drinks glass of wine on occasion) Drug/Substance Use Hx: No Substance Use Type: None Hx Substance Use Treatment: No *Physical Exam - Vital Signs Last Vital Signs Temp Pulse Resp BP Pulse Ox 98.4 F 65 18 101/56 L 100 02/26/19 20:29 02/26/19 20:29 02/26/19 16:07 02/26/19 20:29 02/26/19 20:29 - Physical Exam General Appearance: No: Apparent Distress Respiratory/Chest: positive: Lungs Clear, Normal Breath Sounds. negative: Respiratory Distress Cardiovascular: positive: Regular Rhythm, Regular Rate, S1, S2. negative: Murmur Female Pelvic Exam: positive: discharge (whitish discharge), adnexal tenderness (along L adnexa). negative: CMT Gastrointestinal/Abdominal: positive: Soft. negative: Tender, Distended, Guarding, Rebound Musculoskeletal: negative: CVA Tenderness Integumentary: positive: Normal Color Neurologic: positive: Alert ED Treatment Course - LABORATORY CBC & Chemistry Diagram: 02/26/19 18:26 02/26/19 18:26 - ADDITIONAL ORDERS Additional order review: Laboratory Results 02/26/19 02/26/19 02/26/19 18:26 18:26 18:26 Sodium 132 L Potassium 3.2 L Chloride 100 Carbon Dioxide 26 Anion Gap 6 L BUN 8.1 Creatinine 1.0 Est GFR (CKD-EPI)AfAm 90.68 Est GFR (CKD-EPI)NonAf 78.24 Random Glucose 94 Calcium 9.2 Magnesium 2.0 Total Bilirubin 0.7 AST 53 H ALT 48 Alkaline Phosphatase 129 H Total Protein 9.5 H Albumin 4.7 Urine Color Dk yellow Urine Appearance Clear Urine pH 6.0 Ur Specific [place] 1.030 Urine Protein 3+ H Urine Glucose (UA) Negative Urine Ketones 4+ H Urine Blood Trace Urine Nitrite Negative Urine Bilirubin Negative Urine Urobilinogen 1.0 Ur Leukocyte Esterase 1+ H Urine WBC (Auto) 46 Urine RBC (Auto) 0-4 Urine Casts (Auto) 49 U Epithel Cells (Auto) 1.0 Urine Bacteria (Auto) 27.9 Urine HCG, Qual Negative 02/26/19 18:26 RBC 4.39 MCV 87.4 MCHC 33.7 RDW 14.0 MPV 6.8 L Neutrophils % 82.6 Lymphocytes % 14.2 Monocytes % 2.5 L D Eosinophils % 0.6 D Basophils % 0.1 - RADIOLOGY Radiology Studies Ordered: Category Date Time Status TRANSVAGINAL ULTRASOUND US [US] Stat Ultrasound 02/26/19 19:12 Completed - Medications Given in the ED: ED Medications Discontinued Medications Generic Name Dose Route Start Last Admin Trade Name [place] PRN Reason Stop Dose Admin Acetaminophen 1,000 mg 02/26/19 18:05 02/26/19 18:25 Ofirmev Injection - IVPB 02/26/19 18:06 1,000 mg ONCE ONE Administration Cephalexin HCl 500 mg 02/26/19 20:28 02/26/19 21:14 Keflex - PO 02/26/19 20:29 500 mg ONCE ONE Administration Sodium Chloride 1,000 mls @ 1,000 mls/hr 02/26/19 18:05 02/26/19 18:42 Normal Saline - IV 02/26/19 19:04 1,000 mls/hr ASDIR STA Administration Potassium Chloride 40 meq 02/26/19 19:16 02/26/19 21:14 Potassium Chloride Oral Liquid PO 02/26/19 19:17 40 meq ONCE ONE Administration Medical Decision Making - Medical Decision Making 23 y/o F hx of invasive ductal carcinoma of breast with metastatic disease to lungs/sternum (getting treatment at [facility]; last chemo 02/16) presents with dysuria and intermittent hematuria after sexual intercourse last week (sxs were before she received chemo). Patient was admitted 09/2018 for UTI; at that time, she was neutropenic and received Neupogen. Patient states she had left over abx from that visit so she was taking that. Also with mild lower abodminal pain. Denies URI sxs, sob, cp, diarrhea. Labs reviewed Patient not neutropenic at this time UA+ -> given Keflex Potassium repleted Mg normal Patient feeling better after receiving IVF, Tylenol Repeat vitals improved Blood and urine culture were sent D/W Dr. Crawford - recommends admission given immunosuppressed 02/26/19 22:13 Discharge - Discharge Information Problems reviewed: Yes Clinical Impression/Diagnosis: UTI (urinary tract infection) Qualifiers: Urinary tract infection type: acute cystitis Hematuria presence: with hematuria Qualified Code(s): N30.01 - Acute cystitis with hematuria Condition: Stable - Admission Yes - Follow up/Referral - Patient Discharge Instructions - Post Discharge Activity
[2019-02-27] MEDS ORDERED: VANCOMYCIN 1 GM in D5W (PRE-DOCKED) 1,000 MG/250 ML IVPB ONE (02:38)
[2019-02-27] MEDS: SODIUM CHLORIDE 1,000 ML IV SCH (03:39)
--- NOTE | 2019-02-27 03:40 | HP ---
CHIEF COMPLAINT: painful urination, weakness PCP: none HISTORY OF PRESENT ILLNESS: Jessica Richard is a 23 year old female with a past medical history of asthma, invasive ductal carcinoma of the breast 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 ([place] [facility] and had last chemo on 02/16. Patient states that she is sometimes non- compliant with treatment and misses doses. Patient noted that on Feb 09 she had sexual intercourse and then shortly in the day began to have dysuria. She stated that she took leftover antibiotics from the last time she had a UTI with no effect. On Feb 16 she went to get her chemotherapy at [facility] and felt her usual lethargy and weakness post-chemo for 4-5 days however that did not skinny and she continued to have symptoms of dysuria, frequency, and hematruia. She attempted to take Tylenol afterwards for pain with little effect. During this time, she endorsed lightheadedness (with no syncope), lethargy, subjective fevers, chills, dysuria, hematuria, poor appetite. Denied chest pain, shortness of breath, nausea, vomiting, constipation, diarrhea, numbness, tingling, focal deficits, dizziness, syncope. ER course was notable for: (1) WBC 3.0, Na 132, K 3.2 (2) Febrile 102.8 (3) UA 3+ protein, 4+ ketones, trace blood, 1+ LE, 46 WBC, 27.9 bacteria (4) Transvaginal U/S showing no sonographic abscess formation, unremarkable ovaries, no gross adenexal path, no free fluid Recent Travel: denies PAST MEDICAL HISTORY: as above PAST SURGICAL HISTORY: denies Social History: Smoking: denies Alcohol: denies Drugs: denies Allergies No Known Allergies Allergy (Verified 02/26/19 16:12) HOME MEDICATIONS: Home Medications Medication Instructions Recorded Ondansetron [Zofran -] 1 tab TID 10/24/18 Oxycodone HCl/Acetaminophen 1 tab PO TID PRN 10/30/18 [Percocet 5-325 mg Tablet] Bacitracin - [Bacitracin Topical 1 applic TP DAILY tube 11/01/18 Ointment -] Bacitracin - [Bacitracin Topical 1 applic TP DAILY 30 Days #1 applic 11/01/18 Ointment -] Docusate Sodium [Colace -] 100 mg PO BID 30 Days #60 capsule 11/01/18 Methylnaltrexone [place] [Relistor 12 mg SQ DAILY 15 Days #15 kit 11/01/18 -] Ondansetron [Zofran *Odt*] 8 mg SL Q8H PRN tab.rapdis 11/01/18 Polyethylene Glycol 3350 [Miralax 17 gm PO BID #1 bottle 11/01/18 119 gm Btl -] Sennosides [Senna -] 2 tab PO HS 30 Days #60 tablet 11/01/18 oxyCODONE HCL [Roxicodone -] 5 mg PO Q4H PRN tablet MDD 15mg 11/01/18 REVIEW OF SYSTEMS CONSTITUTIONAL: fever, chills, generalized weakness, malaise, loss of appetite Absent: diaphoresis, weight change HEENT: Absent: rhinorrhea, nasal congestion, throat pain, throat swelling, difficulty swallowing, mouth swelling, visual changes CARDIOVASCULAR: Absent: chest pain, syncope, palpitations, irregular heart rate, lightheadedness , peripheral edema RESPIRATORY: Absent: cough, shortness of breath, dyspnea with exertion, orthopnea, wheezing, GASTROINTESTINAL: Absent: abdominal pain, abdominal distension, nausea, vomiting, diarrhea, constipation, melena, hematochezia GENITOURINARY: dysuria, frequency, hematuria Absent: urgency, hesitancy, flank pain, genital pain MUSCULOSKELETAL: Absent: myalgia, arthralgia, joint swelling, back pain, neck pain SKIN: Absent: rash, itching, pallor HEMATOLOGIC/IMMUNOLOGIC: Absent: easy bleeding, easy bruising, lymphadenopathy, frequent infections ENDOCRINE: Absent: unexplained weight gain, unexplained weight loss, heat intolerance, cold intolerance NEUROLOGIC: Absent: headache, focal weakness or paresthesias, dizziness, unsteady gait, seizure, mental status changes, bladder or bowel incontinence PSYCHIATRIC: Absent: anxiety, depression, suicidal or homicidal ideation, hallucinations. PHYSICAL EXAMINATION Vital Signs - 24 hr 02/26/19 02/26/19 16:07 20:29 Temperature 102.8 F H 98.4 F Pulse Rate 98 H Pulse Rate [ 65 Left Radial] Respiratory 18 Rate Blood Pressure 125/62 Blood Pressure 101/56 L [Left Arm] O2 Sat by Pulse 98 100 Oximetry (%) GENERAL: Awake, alert, and fully oriented, in no acute distress. HEAD: Normal with no signs of trauma. EYES: Pupils equal, round and reactive to light, extraocular movements intact, sclera anicteric, conjunctiva clear. EARS, NOSE, THROAT: Oropharynx clear without exudates. Moist mucous membranes. NECK: Normal range of motion, supple without lymphadenopathy, JVD. LUNGS: Breath sounds equal, clear to auscultation bilaterally. No wheezes, and no crackles. No accessory muscle use. HEART: Regular rate and rhythm, normal S1 and S2 without murmur, rub. ABDOMEN: Soft, nontender, not distended, normoactive bowel sounds, no guarding, no rebound, no masses. MUSCULOSKELETAL: Normal range of motion at all joints. No bony deformities or tenderness. No CVA tenderness. UPPER EXTREMITIES: 2+ pulses, warm, well-perfused. No cyanosis. No clubbing. No peripheral edema. LOWER EXTREMITIES: 2+ pulses, warm, well-perfused. No calf tenderness. No peripheral edema. NEUROLOGICAL: Cranial nerves II-XII intact. 5/5 muscle strength upper and lower extremities bilaterally. Normal gait. PSYCHIATRIC: Cooperative. Good eye contact. Appropriate mood and affect. SKIN: Warm, dry, normal turgor, no rashes or lesions noted, normal capillary refill. Laboratory Results - last 24 hr 02/26/19 02/26/19 02/26/19 18:26 18:26 18:26 WBC 3.0 L RBC 4.39 Hgb 12.9 Hct 38.4 D MCV 87.4 MCH 29.5 MCHC 33.7 RDW 14.0 Plt Count 50 L D MPV 6.8 L Absolute Neuts (auto) 2.5 Neutrophils % 82.6 Lymphocytes % 14.2 Monocytes % 2.5 L D Eosinophils % 0.6 D Basophils % 0.1 Nucleated RBC % 0 Sodium 132 L Potassium 3.2 L Chloride 100 Carbon Dioxide 26 Anion Gap 6 L BUN 8.1 Creatinine 1.0 Est GFR (CKD-EPI)AfAm 90.68 Est GFR (CKD-EPI)NonAf 78.24 Random Glucose 94 Calcium 9.2 Magnesium 2.0 Total Bilirubin 0.7 AST 53 H ALT 48 Alkaline Phosphatase 129 H Total Protein 9.5 H Albumin 4.7 Urine Color Urine Appearance Urine pH Ur Specific [place] Urine Protein Urine Glucose (UA) Urine Ketones Urine Blood Urine Nitrite Urine Bilirubin Urine Urobilinogen Ur Leukocyte Esterase Urine WBC (Auto) Urine RBC (Auto) Urine Casts (Auto) U Epithel Cells (Auto) Urine Bacteria (Auto) Urine HCG, Qual Negative 02/26/19 18:26 WBC RBC Hgb Hct MCV MCH MCHC RDW Plt Count MPV Absolute Neuts (auto) Neutrophils % Lymphocytes % Monocytes % Eosinophils % Basophils % Nucleated RBC % Sodium Potassium Chloride Carbon Dioxide Anion Gap BUN Creatinine Est GFR (CKD-EPI)AfAm Est GFR (CKD-EPI)NonAf Random Glucose Calcium Magnesium Total Bilirubin AST ALT Alkaline Phosphatase Total Protein Albumin Urine Color Dk yellow Urine Appearance Clear Urine pH 6.0 Ur Specific [place] 1.030 Urine Protein 3+ H Urine Glucose (UA) Negative Urine Ketones 4+ H Urine Blood Trace Urine Nitrite Negative Urine Bilirubin Negative Urine Urobilinogen 1.0 Ur Leukocyte Esterase 1+ H Urine WBC (Auto) 46 Urine RBC (Auto) 0-4 Urine Casts (Auto) 49 U Epithel Cells (Auto) 1.0 Urine Bacteria (Auto) 27.9 Urine HCG, Qual ASSESSMENT/PLAN: Jessica Richard is a 23 year old female with a past medical history of asthma, invasive ductal carcinoma of the breast 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 ([place] at [facility] and had last chemo on 02/16 admitted for sepsis secondary to UTI in the setting of an immunocompromised state. Sepsis secondary to UTI in the setting of an immunocompromised state - febrile and leukopenic (3.0) with known source of infection - UA positive for infection - lactic acid 0.8 - given one dose of Keflex - start ceftriaxone - one dose of vancomycin to cover for possible bacteremia in setting of chemotherapy patient - blood cultures - urine cultures - continue NS at 100cc/hr - transvaginal U/S with no acute pathology - chlamydia, gonnorhea swab Leukopenia - likely in setting of chemotherapy administration - continue to monitor Thrombocytopenia - likely in setting of chemotherapy administration - continue to monitor FEN - NS at 100cc/hr - hypokalemia and hyponatremia noted and repleted, continue to monitor electrolytes and replete as necessary - Regular diet PPx - SCDs, avoid AC in setting of thrombocytopenia Code - full code Dispo - continue to monitor on Med-surg - need to reconcile patient's meds, pharmacy closed overnight Problem List - Problem (1) UTI (urinary tract infection) Code(s): N39.0 - URINARY TRACT INFECTION, SITE NOT SPECIFIED Qualifiers: Urinary tract infection type: acute cystitis Hematuria presence: with hematuria Qualified Code(s): N30.01 - Acute cystitis with hematuria (2) Leukopenia due to antineoplastic chemotherapy Code(s): D70.1 - AGRANULOCYTOSIS SECONDARY TO CANCER CHEMOTHERAPY; T45.1X5A - ADVERSE EFFECT OF ANTINEOPLASTIC AND IMMUNOSUP DRUGS, INIT (3) Metastatic breast cancer Code(s): C50.919 - MALIGNANT NEOPLASM OF UNSP SITE OF UNSPECIFIED FEMALE BREAST Visit type - Emergency Visit Emergency Visit: Yes ED Registration Date: 02/26/19 Care time: The patient presented to the Emergency Department on the above date and was hospitalized for further evaluation of their emergent condition. - New Patient This patient is new to me today: Yes Date on this admission: 02/27/19 - Critical Care Critical Care patient: No
[2019-02-27] MEDS ORDERED: HEPARIN NA (PORCINE) 5,000 UNITS/ML 1ML VIAL SQ SCH (06:00)
--- NOTE | 2019-02-27 06:55 | PN ---
Teaching Attending Note Name of Resident: Gui Munguia ATTENDING PHYSICIAN STATEMENT I saw and evaluated the patient. I reviewed the resident's note and discussed the case with the resident. I agree with the resident's findings and plan as documented. SUBJECTIVE: 23 year old female with a past medical history of asthma, invasive ductal carcinoma of the breast 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 (tx at [facility]) and had last chemo on 02/16 complaining of dysuria and general malaise for about the past 5 days. Denied any back pain, headaches, cough, diarrhea or any skin infections or lesions. Is no history of recent travel or sick contacts. OBJECTIVE: Last Vital Signs Temp Pulse Resp BP Pulse Ox 98.4 F 65 18 101/56 L 100 02/26/19 20:29 02/26/19 20:29 02/26/19 16:07 02/26/19 20:29 02/26/19 20:29 GENERAL: Well developed, well nourished. Awake and alert. No acute distress. HEENT: Normocephalic, atraumatic. PERRLA, EOMI. No conjunctival pallor. Sclera are non- icteric. Moist mucous membranes. Oropharynx is clear. NECK: Supple. Full ROM. No JVD. Carotid pulses 2+ and symmetric, without bruits. No thyromegaly. No lymphadenopathy. CARDIOVASCULAR: Regular rate and rhythm. No murmurs, rubs, or gallops. Distal pulses are 2+ and symmetric. PULMONARY: No evidence of respiratory distress. Lungs clear to auscultation bilaterally. No wheezing, rales or rhonchi. ABDOMINAL: Soft. Non-tender. Non-distended. No rebound or guarding. No organomegaly. Normoactive bowel sounds. MUSCULOSKELETAL Normal range of motion at all joints. No bony deformities or tenderness. No CVA tenderness. EXTREMITIES: No cyanosis. No clubbing. No edema. No calf tenderness. SKIN: Warm and dry. Normal capillary refill. No rashes. No jaundice. PSYCHIATRIC: Cooperative. Good eye contact. Appropriate mood and affect. Abnormal Lab Results 02/26/19 02/26/19 02/26/19 18:26 18:26 18:26 WBC 3.0 L Plt Count 50 L D MPV 6.8 L Monocytes % 2.5 L D Sodium 132 L Potassium 3.2 L Anion Gap 6 L AST 53 H Alkaline Phosphatase 129 H Total Protein 9.5 H Urine Protein 3+ H Urine Ketones 4+ H Ur Leukocyte Esterase 1+ H Imaging studies reviewed transvaginal U/S Showed no acute pathology 23-year-old immunocompromised woman With ductal cell carcinoma breast cancer currently on chemotherapy with leukopenia and thrombocytopenia with sepsis likely secondary to urinary tract infection. Lactate was normal, patient is nontoxic-appearing and hemodynamically stable and stable for admission to floor.No back pain and do not suspect pyelonephritis at this time. Given the fact that patient is sexually active would rule out gonorrhea and chlamydia cervicitis - lactic acid 0.8 - start ceftriaxone - one dose of vancomycin to cover for possible bacteremia in setting of chemotherapy patient - blood cultures - urine cultures - continue NS - chlamydia, gonnorhea Nucleic acid amplification and urine #Leukopenia #pancytopenialikely secondary to recent chemotherapy. Would monitor cell counts closely #Electrolyte disturbanceshyponatremia and hypokalemia Gentle IV fluid hydration supplement potassium Check mag and fossa and supplement as needed DVT prophylaxisheparin subcutaneously
[2019-02-27] MEDS ORDERED: CEFTRIAXONE 1 GM in DEXTROSE 5%-WATER - 50 ML IVPB SCH (10:00)
[2019-02-27 10:25] LABS: BASO % 0.3 % (0-2.0); EOS % 2.4 % (0-4.5); HEMATOCRIT 32.8 % (32.4-45.2); HEMOGLOBIN 11.2 GM/dL (10.7-15.3); LYMPH % 37.6 % (8-40); MCH 29.8 pg (25.7-33.7); MCHC 34.1 g/dl (32.0-36.0); MEAN CELL VOLUME 87.3 fl (80-96); MEAN PLT VOLUME 6.7 fl (7.5-11.1); MONO % 4.4 % (3.8-10.2); NEUT % 55.3 % (42.8-82.8); RBC 3.76 M/mm3 (3.60-5.2); RDW 13.6 % (11.6-15.6)
[2019-02-27 10:46] LABS: PLATELET COUNT 29 K/MM3 (134-434)
[2019-02-27 10:49] LABS: PLATELET ESTIMATE DECREASED
[2019-02-27 11:03] LABS: BLOOD UREA NITROGEN 5.4 mg/dL (7-18); CALCIUM 8.4 mg/dL (8.5-10.1); CREATININE 0.7 mg/dL (0.55-1.3); POTASSIUM 3.3 mmol/L (3.5-5.1)
[2019-02-27] MEDS ORDERED: CEFTRIAXONE 1 GM/50 ML BAG ONE (12:28)
[2019-02-27 14:54] VITALS: BMI 21.2
--- NOTE | 2019-02-27 17:59 | PN ---
Progress Note (short form) - Note Progress Note: SUBJECTIVE: Feels well - no SOB/cough/sputum/hemoptysis/dysuria/diarrhea. OBJECTIVE: Afebrile, Hemodynamically Stable. Last Vital Signs Temp Pulse Resp BP Pulse Ox 98.2 F 77 18 125/68 98 02/27/19 14:38 02/27/19 14:38 02/27/19 14:38 02/27/19 14:38 02/27/19 14:38 HEENT - Atraumatic, Normocephalic. Heart - S1, S2, RRR Lungs - clear to auscultation Abdomen - soft, non-tender. Bowel Sounds normal. Extremities - no calf tenderness. Laboratory Results - last 24 hr 02/26/19 02/26/19 02/26/19 18:26 18:26 18:26 WBC 3.0 L RBC 4.39 Hgb 12.9 Hct 38.4 D MCV 87.4 MCH 29.5 MCHC 33.7 RDW 14.0 Plt Count 50 L D MPV 6.8 L Absolute Neuts (auto) 2.5 Neutrophils % 82.6 Lymphocytes % 14.2 Monocytes % 2.5 L D Eosinophils % 0.6 D Basophils % 0.1 Nucleated RBC % 0 Platelet Estimate Platelet Comment Sodium 132 L Potassium 3.2 L Chloride 100 Carbon Dioxide 26 Anion Gap 6 L BUN 8.1 Creatinine 1.0 Est GFR (CKD-EPI)AfAm 90.68 Est GFR (CKD-EPI)NonAf 78.24 Random Glucose 94 Lactic Acid Calcium 9.2 Magnesium 2.0 Total Bilirubin 0.7 AST 53 H ALT 48 Alkaline Phosphatase 129 H Total Protein 9.5 H Albumin 4.7 Urine Color Urine Appearance Urine pH Ur Specific [place] Urine Protein Urine Glucose (UA) Urine Ketones Urine Blood Urine Nitrite Urine Bilirubin Urine Urobilinogen Ur Leukocyte Esterase Urine WBC (Auto) Urine RBC (Auto) Urine Casts (Auto) U Epithel Cells (Auto) Urine Bacteria (Auto) Urine HCG, Qual Negative 02/26/19 02/27/19 02/27/19 18:26 03:35 10:15 WBC 2.0 L RBC 3.76 Hgb 11.2 Hct 32.8 MCV 87.3 MCH 29.8 MCHC 34.1 RDW 13.6 Plt Count 29 L* D MPV 6.7 L Absolute Neuts (auto) 1.1 L Neutrophils % 55.3 D Lymphocytes % 37.6 D Monocytes % 4.4 Eosinophils % 2.4 D Basophils % 0.3 Nucleated RBC % 0 Platelet Estimate Decreased Platelet Comment Sodium Potassium Chloride Carbon Dioxide Anion Gap BUN Creatinine Est GFR (CKD-EPI)AfAm Est GFR (CKD-EPI)NonAf Random Glucose Lactic Acid 0.8 Calcium Magnesium Total Bilirubin AST ALT Alkaline Phosphatase Total Protein Albumin Urine Color Dk yellow Urine Appearance Clear Urine pH 6.0 Ur Specific [place] 1.030 Urine Protein 3+ H Urine Glucose (UA) Negative Urine Ketones 4+ H Urine Blood Trace Urine Nitrite Negative Urine Bilirubin Negative Urine Urobilinogen 1.0 Ur Leukocyte Esterase 1+ H Urine WBC (Auto) 46 Urine RBC (Auto) 0-4 Urine Casts (Auto) 49 U Epithel Cells (Auto) 1.0 Urine Bacteria (Auto) 27.9 Urine HCG, Qual 02/27/19 10:15 WBC RBC Hgb Hct MCV MCH MCHC RDW Plt Count MPV Absolute Neuts (auto) Neutrophils % Lymphocytes % Monocytes % Eosinophils % Basophils % Nucleated RBC % Platelet Estimate Platelet Comment Sodium 139 Potassium 3.3 L Chloride 107 Carbon Dioxide 21 Anion Gap 11 BUN 5.4 L Creatinine 0.7 Est GFR (CKD-EPI)AfAm 139.57 Est GFR (CKD-EPI)NonAf 120.42 Random Glucose 86 Lactic Acid Calcium 8.4 L Magnesium Total Bilirubin AST ALT Alkaline Phosphatase Total Protein Albumin Urine Color Urine Appearance Urine pH Ur Specific [place] Urine Protein Urine Glucose (UA) Urine Ketones Urine Blood Urine Nitrite Urine Bilirubin Urine Urobilinogen Ur Leukocyte Esterase Urine WBC (Auto) Urine RBC (Auto) Urine Casts (Auto) U Epithel Cells (Auto) Urine Bacteria (Auto) Urine HCG, Qual Current Medications Generic Name Dose Route Start Last Admin Trade Name Freq PRN Reason Stop Dose Admin Ceftriaxone Sodium 1 gm/ 50 mls @ 100 mls/hr 02/27/19 10:00 02/27/19 10:05 Dextrose IVPB 100 mls/hr DAILY RAMANA Administration Protocol Sodium Chloride 1,000 mls @ 100 mls/hr 02/27/19 02:45 02/27/19 03:39 Normal Saline - IV 100 mls/hr ASDIR RAMANA Administration Home Medications Medication Instructions Recorded Ondansetron [Zofran -] 1 tab TID 10/24/18 Oxycodone HCl/Acetaminophen 1 tab PO TID PRN 10/30/18 [Percocet 5-325 mg Tablet] Bacitracin - [Bacitracin Topical 1 applic TP DAILY tube 11/01/18 Ointment -] Bacitracin - [Bacitracin Topical 1 applic TP DAILY 30 Days #1 applic 11/01/18 Ointment -] Docusate Sodium [Colace -] 100 mg PO BID 30 Days #60 capsule 11/01/18 Methylnaltrexone [place] [Relistor 12 mg SQ DAILY 15 Days #15 kit 11/01/18 -] Ondansetron [Zofran *Odt*] 8 mg SL Q8H PRN tab.rapdis 11/01/18 Polyethylene Glycol 3350 [Miralax 17 gm PO BID #1 bottle 11/01/18 119 gm Btl -] Sennosides [Senna -] 2 tab PO HS 30 Days #60 tablet 11/01/18 oxyCODONE HCL [Roxicodone -] 5 mg PO Q4H PRN tablet MDD 15mg 11/01/18 ASSESSMENT/PLAN: 23 year old female with a past medical history of Asthma, Invasive Ductal Carcinoma of the Breast 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 [place] [facility] [place] last chemo on 02/16, complains of dysuria and malaise, found to have fever 102.8. Transvaginal U/S - no acute pathology 1. Neutropenic Fever Blood Cx x 1 pos for gram pos cocci in clusters. Cefepime/Vancomycin Urine cx pending, CXR ordered. ID consult. IV hydration 2. Hyponatremia sec to dehydration - resolved. 3. Hypokalemia - repleted. 4. Thrombocytopenia sec to recent Chemotherapy - no bruising/bleeding - will monitor. DVT Px - SCDs. Heparin held due to Thrombocytopenia. Visit type - Emergency Visit Emergency Visit: Yes ED Registration Date: 02/26/19 Care time: The patient presented to the Emergency Department on the above date and was hospitalized for further evaluation of their emergent condition. - New Patient This patient is new to me today: Yes Date on this admission: 02/28/19 - Critical Care Critical Care patient: No - Discharge Referral Referred to [facility] No
[2019-02-27] MEDS ORDERED: VANCOMYCIN 1 GM PREMIX - 1 GM/200 ML BAG IVPB SCH (18:15)
[2019-02-27] MEDS ORDERED: POTASSIUM CHLORIDE TABS 20 MEQ TABLET.ER (FP) PO SCH (18:17)
[2019-02-27] MEDS ORDERED: oxyCODONE HCL 5 MG TABLET PO PRN (18:18)
[2019-02-27] MEDS ORDERED: ONDANSETRON *ODT* 4 MG TABLET SL PRN (18:18)
[2019-02-27] MEDS ORDERED: PT OWN MED DRAWER 7, Y5N ONE (20:41)
[2019-02-27] MEDS ORDERED: DEXTROSE 5%-WATER 100 ML IVPB ONE (20:43)
[2019-02-27] MEDS ORDERED: CEFEPIME HCL 2 GM VIAL (RESTRICTED TO ID) ONE (20:43)
[2019-02-27] MEDS: CEFEPIME 2 GM in DEXTROSE 5%-WATER 100 ML IVPB SCH (20:48)
[2019-02-27] MEDS: VANCOMYCIN 1 GRAM (PRE-DOCKED) 1,000 MG/250 ML BAG IVPB SCH (20:49)
[2019-02-27] MEDS: SENNOSIDES 8.6MG TABLET (FP) PO SCH (21:12)
[2019-02-27] MEDS: DOCUSATE SODIUM 100 MG CAPSULE (FP) PO SCH (21:12)
[2019-02-27] MEDS: POLYETHYLENE GLYCOL 3350 119 GM BTL PO SCH (21:20)
[2019-02-27] MEDS: MELATONIN 1 MG TABLET PO SCH (22:22)
[2019-02-28] MEDS ORDERED: CEFEPIME HCL 2 GM VIAL (RESTRICTED TO ID) ONE ×2 (03:05→10:00)
[2019-02-28] MEDS ORDERED: DEXTROSE 5%-WATER 100 ML IVPB ONE ×2 (03:05→10:00)
[2019-02-28] MEDS: SODIUM CHLORIDE 1,000 ML IV SCH ×2 (03:10→17:27)
[2019-02-28] MEDS: CEFEPIME 2 GM in DEXTROSE 5%-WATER 100 ML IVPB SCH ×2 (03:11→10:32)
[2019-02-28 06:39] LABS: HEMATOCRIT 31.4 % (32.4-45.2); HEMOGLOBIN 10.8 GM/dL (10.7-15.3); MCH 29.5 pg (25.7-33.7); MCHC 34.2 g/dl (32.0-36.0); MEAN CELL VOLUME 86.1 fl (80-96); MEAN PLT VOLUME 7.1 fl (7.5-11.1); RBC 3.65 M/mm3 (3.60-5.2); RDW 13.5 % (11.6-15.6)
[2019-02-28 06:48] LABS: PLATELET COUNT 25 K/MM3 (134-434); WHITE BLOOD COUNT 1.2 K/mm3 (4.0-10.0)
[2019-02-28 07:10] LABS: BLOOD UREA NITROGEN 5.8 mg/dL (7-18); CALCIUM 8.2 mg/dL (8.5-10.1); CREATININE 0.7 mg/dL (0.55-1.3); POTASSIUM 3.8 mmol/L (3.5-5.1)
[2019-02-28] MEDS: VANCOMYCIN 1 GRAM (PRE-DOCKED) 1,000 MG/250 ML BAG IVPB SCH (08:41)
[2019-02-28] MEDS: POLYETHYLENE GLYCOL 3350 119 GM BTL PO SCH ×2 (10:32→22:17)
[2019-02-28] MEDS: DOCUSATE SODIUM 100 MG CAPSULE (FP) PO SCH ×2 (10:32→22:15)
[2019-02-28] MEDS: Methylnaltrexone Bromide 12 MG/0.6 ML KIT SQ SCH (10:32)
--- NOTE | 2019-02-28 11:16 | CON.ID ---
Consult Consult Specialty:: infectious disease Referred by:: hospitalist Reason for Consultation:: fever - History of Present Illness Chief Complaint: dysuria with intermittent hematuria History of Present Illness: 23 yofemale with metastatic breast cancer- [place] [facility] developed dysuria with intermittent hematuria prior to her chemo on 02/16- she had some antibiotics left over from a prior UTI in November so she took them for 3 days after chemo her symptoms returned she was to have gotten a second chemo agent last week but did not go for chemo over Thanksgiving developed fever and came to the ER does not get gcsf with chemo now reports hematuria and dysuria have resolved - History Source History Provided By: Patient Limitations to Obtaining History: No Limitations - Past Medical History Pulmonary: Yes: Asthma (last attack 6 yrs ago, not on any meds currently) ...LMP: 02/19/19 ...: No Heme/Onc: Yes: Cancer (breast cancer) - Past Surgical History Past Surgical History: Yes: - Alcohol/Substance Use Hx Alcohol Use: Yes History of Substance Use: reports: None - Smoking History Smoking history: Current every day smoker Have you smoked in the past 12 months: No Aproximately how many cigarettes per day: 4 - Social History Usual Living Arrangement: With Child (has two children) ADL: Independent Occupation: not working Place of : [facility] History of Recent Travel: No Home Medications - Allergies Allergies/Adverse Reactions: Allergies Allergy/AdvReac Type Severity Reaction Status Date / Time No Known Allergies Allergy Verified 02/26/19 16:12 Family Medical History Family History: Unremarkable Review of Systems - Review of Systems Constitutional: reports: Fever Eyes: reports: No Symptoms HENT: reports: No Symptoms Neck: reports: No Symptoms Cardiovascular: reports: No Symptoms. denies: Chest Pain Respiratory: denies: SOB Gastrointestinal: reports: No Symptoms. denies: Abdominal Pain, Constipation, Diarrhea Genitourinary: reports: No Symptoms Musculoskeletal: reports: No Symptoms Integumentary: reports: No Symptoms Endocrine: reports: No Symptoms Physical Exam Vital Signs: Vital Signs Temperature 98.4 F 02/28/19 06:00 Pulse Rate 50 L 02/28/19 06:00 Respiratory Rate 17 02/28/19 06:00 Blood Pressure 111/64 02/28/19 06:00 O2 Sat by Pulse Oximetry (%) 98 02/27/19 21:00 Constitutional: Yes: Well Nourished, No Distress, Calm Eyes: Yes: Conjunctiva Clear HENT: Yes: Atraumatic, Normocephalic. No: Thrush, Tonsillar Exudate Neck: Yes: Supple, Trachea Midline Cardiovascular: Yes: Regular Rate and Rhythm Respiratory: Yes: Regular, CTA Bilaterally Gastrointestinal: Yes: Normal Bowel Sounds, Soft ...Rectal Exam: Yes: Deferred Renal/: No: Bladder Distention, CVA Tenderness - Left, CVA Tenderness - Right Extremities: Yes: WNL Edema: No Integumentary: Yes: WNL Neurological: Yes: Alert, Oriented Psychiatric: Yes: Alert, Oriented Labs: CBC, BMP 02/28/19 05:30 02/28/19 05:30 Microbiology 02/26/19 18:26 Blood - Peripheral Venous Blood Culture - Preliminary Staphylococcus Coagulase Neg 02/26/19 18:26 Urine - Urine Clean Catch Urine Culture - Final NO GROWTH OBTAINED 02/26/19 18:00 Blood - Peripheral Venous Blood Culture - Preliminary NO GROWTH OBTAINED AFTER 24 HOURS, INCUBATION TO CONTINUE FOR 4 DAYS. Imaging - Results Chest X-ray: Report Reviewed, Image Reviewed Ultrasound: Report Reviewed Problem List - Problems (1) Neutropenic fever Code(s): D70.9 - NEUTROPENIA, UNSPECIFIED; R50.81 - FEVER PRESENTING WITH CONDITIONS CLASSIFIED ELSEWHERE (2) Metastatic breast cancer Code(s): C50.919 - MALIGNANT NEOPLASM OF UNSP SITE OF UNSPECIFIED FEMALE BREAST Assessment/Plan fevers resolved neutropenia s/p chemo dyuria resolved took outpt antibioitics for 3 days prior to chemo 02/16 notes some discomfort below her breasts she attributes to coughing- will screen for influenza blood culture isolate contaminant d/c vancomycin continue cefepime oncology evaluation ?neupogen repeat labs in am
--- NOTE | 2019-02-28 12:48 | PN ---
Progress Note (short form) - Note Progress Note: Patient known to me from prior admission September 2018. Locally advanced / metastatic breast cancer - started chemotherapy September 2018 - began experiencing pain flank 2 days prior to presentation on 10/26/18, treated then for UTI, and discharged. Presents again with dysuria, malaise, and was febrile on arrival. Pyuria on presentation, started empirically antibiotics. Not neutropenic. Felling well now. Today D13 of current cycle carbo/[place] - (did not receive D8 gem) Reports no other admissions for chemotherapy-related complications since her admission here in September. Reports she is not being given G-CSF prophylaxis at [facility] [place]. Medications reviewed. Current Medications Generic Name Dose Route Start Last Admin Trade Name Freq PRN Reason Stop Dose Admin Docusate Sodium 100 mg 02/27/19 22:00 02/28/19 10:32 Colace - PO Not Given BID RAMANA Sodium Chloride 1,000 mls @ 100 mls/hr 02/27/19 02:45 02/28/19 03:10 Normal Saline - IV 100 mls/hr ASDIR RAMANA Administration Cefepime HCl 2 gm/ Dextrose 100 mls @ 200 mls/hr 02/28/19 18:00 IVPB Q8H-IV RAMANA Protocol Melatonin 3 mg 02/27/19 22:00 02/27/19 22:22 Melatonin PO 3 mg HS RAMANA Administration Methylnaltrexone [place] 12 mg 02/28/19 10:00 02/28/19 10:32 Relistor - SQ Not Given DAILY RAMANA Ondansetron HCl 8 mg 02/27/19 18:18 Zofran Odt - SL Q8H PRN NAUSEA Oxycodone HCl 5 mg 02/27/19 18:18 Roxicodone - PO Q6H PRN PAIN LEVEL 6-10 Polyethylene Glycol 17 gm 02/27/19 22:00 02/28/19 10:32 Miralax (For Daily Use) - PO Not Given BID RAMANA Senna 2 tab 02/27/19 22:00 02/27/19 21:12 Senna - PO 2 tab HS RAMANA Administration On exam: Last Vital Signs Temp Pulse Resp BP Pulse Ox 98.4 F 50 L 17 111/64 98 02/28/19 06:00 02/28/19 06:00 02/28/19 06:00 02/28/19 06:00 02/27/19 21:00 General: In no acute distress, sitting up in bed. Extremities: No pallor or icterus. No pedal edema. No palpable lymphadenopathy. CVS: S1, S2, regular, no gallop or murmur. Chest: good air entry bilaterally, clear Abdomen: Non-distended, non-tender, no palpable organomegaly. Breasts: >8sm mass L breast, no obvious skin changes. Neuro: Alert, oriented. CBC, BMP 02/28/19 05:30 02/28/19 05:30 Assessment/Plan Metastatic breast cancer (lung lesions, skeletal lesions, large primary mass L breast) - reportedly triple negative - started cytotoxic chemotherapy circa (Carboplat/Gemcitabine). Responding to treatment. Today D13 of current cycle - presented with fever and pyuria (culture negative) , empirically treated for urosepsis. Fever now resolved. NOT neutropenic at present - i.e. protocol treatment for FN not appropriate here. Empiric Abics as per ID. Would closely monitor for now. ANC declining, but likely circa terri presently. Similarly thrombocytopenia - observe. No role G-CSF presently - observe - daily CBC/diff. Will follow with you.
--- NOTE | 2019-02-28 15:36 | PN ---
Physical Exam: SUBJECTIVE: Patient seen and examined in the morning. No acute events overnight. No complaints of chest pain, shortness of breath, abdominal pain, nausea, vomiting, diarrhea. Has mild dysuria. OBJECTIVE: Vital Signs Period Temp Pulse Resp BP Sys/Mendoza Pulse Ox Last 24 Hr 98 F-98.7 F 50-78 17-18 111-119/64-71 98-100 GENERAL: The patient is awake, alert, and fully oriented, in no acute distress. HEAD: Normal with no signs of trauma. EYES: PERRL, extraocular movements intact, sclera anicteric, conjunctiva clear. No ptosis. NECK: Trachea midline, full range of motion, supple. LUNGS: Breath sounds equal, clear to auscultation bilaterally, no wheezes HEART: Regular rate and rhythm, S1, S2 without murmur, rub or gallop. ABDOMEN: Soft, nontender, nondistended, normoactive bowel sounds EXTREMITIES: 2+ pulses, warm, well-perfused, no edema. NEUROLOGICAL: Cranial nerves II through XII grossly intact. PSYCH: Normal mood, normal affect. Laboratory Results - last 24 hr 02/28/19 02/28/19 02/28/19 05:30 05:30 12:30 WBC 1.2 L* RBC 3.65 Hgb 10.8 Hct 31.4 L MCV 86.1 MCH 29.5 MCHC 34.2 RDW 13.5 Plt Count 25 L* MPV 7.1 L Sodium 139 Potassium 3.8 Chloride 110 H Carbon Dioxide 24 Anion Gap 5 L BUN 5.8 L Creatinine 0.7 Est GFR (CKD-EPI)AfAm 139.57 Est GFR (CKD-EPI)NonAf 120.42 Random Glucose 86 Calcium 8.2 L Magnesium 2.0 Influenza A (Rapid) Negative Influenza B (Rapid) Negative Active Medications Generic Name Dose Route Start Last Admin Trade Name Freq PRN Reason Stop Dose Admin Docusate Sodium 100 mg 02/27/19 22:00 02/28/19 10:32 Colace - PO Not Given BID RAMANA Sodium Chloride 1,000 mls @ 100 mls/hr 02/27/19 02:45 02/28/19 03:10 Normal Saline - IV 100 mls/hr ASDIR RAMANA Administration Cefepime HCl 2 gm/ Dextrose 100 mls @ 200 mls/hr 02/28/19 18:00 IVPB Q8H-IV RAMANA Protocol Melatonin 3 mg 02/27/19 22:00 02/27/19 22:22 Melatonin PO 3 mg HS RAMANA Administration Methylnaltrexone [place] 12 mg 02/28/19 10:00 02/28/19 10:32 Relistor - SQ Not Given DAILY RAMANA Ondansetron HCl 8 mg 02/27/19 18:18 Zofran Odt - SL Q8H PRN NAUSEA Oxycodone HCl 5 mg 02/27/19 18:18 Roxicodone - PO Q6H PRN PAIN LEVEL 6-10 Polyethylene Glycol 17 gm 02/27/19 22:00 02/28/19 10:32 Miralax (For Daily Use) - PO Not Given BID RAMANA Senna 2 tab 02/27/19 22:00 02/27/19 21:12 Senna - PO 2 tab HS RAMANA Administration ASSESSMENT/PLAN: 23 F with PMH of invasive ductal carcinoma of the breast 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 ([place] [facility] [place] who presents with dysuria and fever 1)Neutropenic Fever -Blood culture is positive for gram positive cocci in clusters in anareobic bottle -Cefepime 2 gram IV Q8H -Urine culture pending -STI panel pending -transvaginal U/S showed no acute pathology -F/U flu swab -NS @ 100 ml/hr -Heme/Onc consulted appreciate recs -ID consulted, appreciate recs 2)Hx of invasive ductal carcinoma of the breast with metastasis to the lung/ sternum -Last chemo on 02/16 -Oxycodone 5 mg PO Q6H -Methylnaltrexone 12 mg SQ Daily -Zofran 8mg Q8H PRN -Polyethylene Glycol 17 gram PO BID 2) Hyponatremia secondary to dehydration -Na was 132 on admission. 139 now 3) Hypokalema -Repleted 4)Thrombocytopenia -Likely due to recent chemotherapy -Will monitor F: NS @ 100 ml/hr E: Monitor BMP N: Neutropenic diet DVT Prophylaxis: SCDs Visit type - Emergency Visit Emergency Visit: Yes ED Registration Date: 02/26/19 Care time: The patient presented to the Emergency Department on the above date and was hospitalized for further evaluation of their emergent condition. - New Patient This patient is new to me today: No - Critical Care Critical Care patient: No ATTENDING PHYSICIAN STATEMENT I saw and evaluated the patient. I reviewed the resident's note and discussed the case with the resident. I agree with the resident's findings and plan as documented. SUBJECTIVE: OBJECTIVE: ASSESSMENT AND PLAN:
--- NOTE | 2019-02-28 16:42 | PN ---
Teaching Attending Note Name of Resident: Maggi Moran ATTENDING PHYSICIAN STATEMENT I saw and evaluated the patient. I reviewed the resident's note and discussed the case with the resident. I agree with the resident's findings and plan as documented. SUBJECTIVE: Feels okay - no SOB/cough/sputum/hemoptysis. Dysuria improving. Some pelvic discomfort. No diarrhea. OBJECTIVE: Fever resolved Hemodynamically Stable. Last Vital Signs Temp Pulse Resp BP Pulse Ox 98.4 F 63 20 116/72 100 02/28/19 15:47 02/28/19 15:47 02/28/19 15:47 02/28/19 15:47 02/28/19 09:00 Heart - S1, S2, RRR Lungs - clear to auscultation Abdomen - soft, non-tender. Bowel Sounds normal. Extremities - no calf tenderness. Laboratory Results - last 24 hr 02/28/19 02/28/19 02/28/19 05:30 05:30 12:30 WBC 1.2 L* RBC 3.65 Hgb 10.8 Hct 31.4 L MCV 86.1 MCH 29.5 MCHC 34.2 RDW 13.5 Plt Count 25 L* MPV 7.1 L Sodium 139 Potassium 3.8 Chloride 110 H Carbon Dioxide 24 Anion Gap 5 L BUN 5.8 L Creatinine 0.7 Est GFR (CKD-EPI)AfAm 139.57 Est GFR (CKD-EPI)NonAf 120.42 Random Glucose 86 Calcium 8.2 L Magnesium 2.0 Influenza A (Rapid) Negative Influenza B (Rapid) Negative Current Medications Generic Name Dose Route Start Last Admin Trade Name Freq PRN Reason Stop Dose Admin Docusate Sodium 100 mg 02/27/19 22:00 02/28/19 10:32 Colace - PO Not Given BID RAMANA Sodium Chloride 1,000 mls @ 100 mls/hr 02/27/19 02:45 02/28/19 03:10 Normal Saline - IV 100 mls/hr ASDIR RAMANA Administration Cefepime HCl 2 gm/ Dextrose 100 mls @ 200 mls/hr 02/28/19 18:00 IVPB Q8H-IV RAMANA Protocol Melatonin 3 mg 02/27/19 22:00 02/27/19 22:22 Melatonin PO 3 mg HS RAMANA Administration Methylnaltrexone [place] 12 mg 02/28/19 10:00 02/28/19 10:32 Relistor - SQ Not Given DAILY RAMANA Ondansetron HCl 8 mg 02/27/19 18:18 Zofran Odt - SL Q8H PRN NAUSEA Oxycodone HCl 5 mg 02/27/19 18:18 Roxicodone - PO Q6H PRN PAIN LEVEL 6-10 Polyethylene Glycol 17 gm 02/27/19 22:00 02/28/19 10:32 Miralax (For Daily Use) - PO Not Given BID RAMANA Senna 2 tab 02/27/19 22:00 02/27/19 21:12 Senna - PO 2 tab HS RAMANA Administration ASSESSMENT/PLAN: 23 year old female with a past medical history of Asthma, Invasive Ductal Carcinoma of the Breast 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 (undergoing treatment at [facility] [place] last chemo on 02/16, complains of dysuria and malaise, found to have fever 102.8. Transvaginal U/S - no acute pathology 1. Neutropenic Fever, source unclear Blood Cx x 1 pos for gram pos cocci in clusters - coag neg, possible contaminant CXR - no acute findings. Reports pelvic discomfort and some dysuria but no vaginal discharge or pruritus. Urine Cx negative, Transvaginal US - no acute pathology GN/CH/Trich screen pending. Continue Cefepime. Vancomycin discontinued by ID. 2. Hyponatremia sec to dehydration - resolved. 3. Hypokalemia - repleted. 4. Thrombocytopenia sec to recent Chemotherapy for metastatic Breast Ca - no bruising/bleeding - will monitor. 5. Metastatic Breast Cancer (Lung, Bone) - receiving treatment at [facility] [place] with Carboplat/Gemcitabine. Day 13 of current cycle. Oncology eval requested. DVT Px - SCDs. Heparin held due to Thrombocytopenia.
[2019-02-28] MEDS ORDERED: PT OWN MED DRAWER 7, Y5N ONE ×2 (16:49→20:23)
[2019-02-28] MEDS: CEFEPIME 2 GM in DEXTROSE 5%-WATER - 100 ML IVPB SCH (17:20)
[2019-02-28] MEDS: SENNOSIDES 8.6MG TABLET (FP) PO SCH (22:15)
[2019-03-01] MEDS: MELATONIN 1 MG TABLET PO SCH ×2 (00:01→21:32)
[2019-03-01] MEDS: CEFEPIME 2 GM in DEXTROSE 5%-WATER - 100 ML IVPB SCH ×3 (01:58→18:57)
[2019-03-01] MEDS ORDERED: PT OWN MED DRAWER 7, Y5N ONE ×4 (07:02→20:32)
[2019-03-01 08:27] LABS: BASO % 0.1 % (0-2.0); EOS % 4.3 % (0-4.5); HEMATOCRIT 28.4 % (32.4-45.2); HEMOGLOBIN 9.9 GM/dL (10.7-15.3); LYMPH % 70.5 % (8-40); MCH 29.4 pg (25.7-33.7); MCHC 34.7 g/dl (32.0-36.0); MEAN CELL VOLUME 84.6 fl (80-96); MEAN PLT VOLUME 7.7 fl (7.5-11.1); MONO % 13.5 % (3.8-10.2); NEUT % 11.6 % (42.8-82.8); RBC 3.36 M/mm3 (3.60-5.2); RDW 13.3 % (11.6-15.6)
[2019-03-01 08:31] LABS: WHITE BLOOD COUNT 1.2 K/mm3 (4.0-10.0)
[2019-03-01 08:32] LABS: PLATELET COUNT 22 K/MM3 (134-434)
[2019-03-01 08:51] LABS: ALBUMIN 3.1 g/dl (3.4-5.0); BILIRUBIN,TOTAL 0.2 mg/dL (0.2-1); BLOOD UREA NITROGEN 5.1 mg/dL (7-18); CALCIUM 8.3 mg/dL (8.5-10.1); CREATININE 0.5 mg/dL (0.55-1.3); POTASSIUM 3.5 mmol/L (3.5-5.1); TOT PROT 6.4 g/dl (6.4-8.2)
[2019-03-01] MEDS: DOCUSATE SODIUM 100 MG CAPSULE (FP) PO SCH ×2 (09:47→21:24)
[2019-03-01] MEDS: Methylnaltrexone Bromide 12 MG/0.6 ML KIT SQ SCH (09:47)
[2019-03-01] MEDS: POLYETHYLENE GLYCOL 3350 119 GM BTL PO SCH ×2 (09:47→21:25)
[2019-03-01 11:50] LABS: ANISOCYTOSIS 0; MACROCYTOSIS 0; OVALOCYTE 1+; PLATELET ESTIMATE DECREASED; TEAR DROP CELLS 1+
--- NOTE | 2019-03-01 13:34 | PN ---
Progress Note (short form) - Note Progress Note: still some urinary discomfort no fevers Vital Signs Period Temp Pulse Resp BP Sys/Mendoza Pulse Ox Last 24 Hr 97.6 F-98.4 F 53-70 18-20 108-128/62-79 100 cor-rrr llungs clear abd soft,nt ext no edema CBC, BMP 03/01/19 06:50 03/01/19 06:50 Microbiology 02/26/19 18:00 Blood - Peripheral Venous Blood Culture - Preliminary NO GROWTH OBTAINED AFTER 48 HOURS, INCUBATION TO CONTINUE FOR 3 DAYS. 02/26/19 18:26 Blood - Peripheral Venous Blood Culture - Preliminary Staphylococcus Coagulase Neg 02/26/19 18:26 Urine - Urine Clean Catch Urine Culture - Final NO GROWTH OBTAINED a/p fevers resolved-remains on cefepime still neutropenic and thrombocytoopenic- hematology f/u history of breast cancer Problem List - Problems (1) Neutropenic fever Code(s): D70.9 - NEUTROPENIA, UNSPECIFIED; R50.81 - FEVER PRESENTING WITH CONDITIONS CLASSIFIED ELSEWHERE (2) Metastatic breast cancer Code(s): C50.919 - MALIGNANT NEOPLASM OF UNSP SITE OF UNSPECIFIED FEMALE BREAST
--- NOTE | 2019-03-01 14:14 | PN ---
Physical Exam: Heme/Onc Service SUBJECTIVE: Patient seen and examined at bedside. No complaints at this time. Pt feels well. OBJECTIVE: Vital Signs Period Temp Pulse Resp BP Sys/Mendoza Pulse Ox Last 24 Hr 97.6 F-98.4 F 53-89 16-20 108-128/61-79 100-100 Gen: AAOx3, NAD HEENT: NCAT, EOMI, Neck: supple, no jvd, no LAD Cardio: rrr, normal s1s2, no mrg Pulm: cta b/l Breast: deferred Abd: soft, nontender, nondistended Ext: no edema Laboratory Results - last 24 hr 03/01/19 03/01/19 06:50 06:50 WBC 1.2 L* RBC 3.36 L Hgb 9.9 L Hct 28.4 L MCV 84.6 MCH 29.4 MCHC 34.7 RDW 13.3 Plt Count 22 L* MPV 7.7 Absolute Neuts (auto) 0.1 L Neutrophils % 11.6 L D Neutrophils % (Manual) 12.9 L Band Neutrophils % 0.0 Lymphocytes % 70.5 H D Lymphocytes % (Manual) 78.2 H* D Monocytes % 13.5 H D Monocytes % (Manual) 3 L D Eosinophils % 4.3 Eosinophils % (Manual) 3.9 D Basophils % 0.1 Basophils % (Manual) 0.0 Myelocytes % (Man) 0 Promyelocytes % (Man) 0 Blast Cells % (Manual) 0 Nucleated RBC % 0 Metamyelocytes 0 D Hypochromia 0 Platelet Estimate Decreased Polychromasia 1+ Poikilocytosis 2+ Anisocytosis 0 Microcytosis 0 Macrocytosis 0 Tear Drop Cells 1+ Ovalocytes 1+ Ganesh Cells 1+ Sodium 142 Potassium 3.5 Chloride 113 H Carbon Dioxide 23 Anion Gap 6 L BUN 5.1 L Creatinine 0.5 L Est GFR (CKD-EPI)AfAm 155.90 Est GFR (CKD-EPI)NonAf 134.52 Random Glucose 89 Calcium 8.3 L Total Bilirubin 0.2 AST 86 H ALT 73 H Alkaline Phosphatase 115 Total Protein 6.4 Albumin 3.1 L Active Medications Generic Name Dose Route Start Last Admin Trade Name Freq PRN Reason Stop Dose Admin Docusate Sodium 100 mg 02/27/19 22:00 03/01/19 09:47 Colace - PO Not Given BID RAMANA Sodium Chloride 1,000 mls @ 100 mls/hr 02/27/19 02:45 02/28/19 17:27 Normal Saline - IV 100 mls/hr ASDIR RAMANA Administration Cefepime HCl 2 gm/ Dextrose 100 mls @ 200 mls/hr 02/28/19 18:00 03/01/19 09: 46 IVPB 200 mls/hr Q8H-IV RAMANA Administration Protocol Melatonin 3 mg 02/27/19 22:00 03/01/19 00:01 Melatonin PO 3 mg HS RAMANA Administration Methylnaltrexone [place] 12 mg 02/28/19 10:00 03/01/19 09:47 Relistor - SQ Not Given DAILY RAMANA Ondansetron HCl 8 mg 02/27/19 18:18 Zofran Odt - SL Q8H PRN NAUSEA Oxycodone HCl 5 mg 02/27/19 18:18 Roxicodone - PO Q6H PRN PAIN LEVEL 6-10 Polyethylene Glycol 17 gm 02/27/19 22:00 03/01/19 09:47 Miralax (For Daily Use) - PO Not Given BID RAMANA Senna 2 tab 02/27/19 22:00 02/28/19 22:15 Senna - PO 2 tab HS RAMANA Administration ASSESSMENT/PLAN: 23 year old female with a past medical history of asthma, 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 [place]) and had last chemo on 02/16 admitted for sepsis secondary to UTI in the setting of an immunocompromised state. Heme/Onc was called to evaluate for metastatic breast CA. invasive ducatl CA with lung/sternal mets -began chemo in September -last chemo 01/2019 -receiving [place] -ANC declining -can follow with her team at [facility] [place] as outpt Visit type - Emergency Visit Emergency Visit: No - New Patient This patient is new to me today: Yes Date on this admission: 03/01/19 - Critical Care Critical Care patient: No ATTENDING PHYSICIAN STATEMENT I saw and evaluated the patient. I reviewed the resident's note and discussed the case with the resident. I agree with the resident's findings and plan as documented. SUBJECTIVE: OBJECTIVE: ASSESSMENT AND PLAN:
--- NOTE | 2019-03-01 15:15 | PN ---
Physical Exam: SUBJECTIVE: Patient seen and examined in the morning. No acute events overnight. No complaints of chest pain, shortness of breath, abdominal pain, nausea, vomiting, diarrhea. Patient thinks her dysuria symptoms are resolving. OBJECTIVE: Vital Signs Period Temp Pulse Resp BP Sys/Mendoza Pulse Ox Last 24 Hr 97.6 F-98.4 F 53-89 16-20 108-128/61-79 100-100 GENERAL: The patient is awake, alert, and fully oriented, in no acute distress. HEAD: Normal with no signs of trauma. EYES: PERRL, extraocular movements intact, sclera anicteric, conjunctiva clear. No ptosis. NECK: Trachea midline, full range of motion, supple. LUNGS: Breath sounds equal, clear to auscultation bilaterally, no wheezes HEART: Regular rate and rhythm, S1, S2 without murmur, rub or gallop. ABDOMEN: Soft, nontender, nondistended, normoactive bowel sounds EXTREMITIES: 2+ pulses, warm, well-perfused, no edema. NEUROLOGICAL: Cranial nerves II through XII grossly intact. PSYCH: Normal mood, normal affect. Laboratory Results - last 24 hr 03/01/19 03/01/19 06:50 06:50 WBC 1.2 L* RBC 3.36 L Hgb 9.9 L Hct 28.4 L MCV 84.6 MCH 29.4 MCHC 34.7 RDW 13.3 Plt Count 22 L* MPV 7.7 Absolute Neuts (auto) 0.1 L Neutrophils % 11.6 L D Neutrophils % (Manual) 12.9 L Band Neutrophils % 0.0 Lymphocytes % 70.5 H D Lymphocytes % (Manual) 78.2 H* D Monocytes % 13.5 H D Monocytes % (Manual) 3 L D Eosinophils % 4.3 Eosinophils % (Manual) 3.9 D Basophils % 0.1 Basophils % (Manual) 0.0 Myelocytes % (Man) 0 Promyelocytes % (Man) 0 Blast Cells % (Manual) 0 Nucleated RBC % 0 Metamyelocytes 0 D Hypochromia 0 Platelet Estimate Decreased Polychromasia 1+ Poikilocytosis 2+ Anisocytosis 0 Microcytosis 0 Macrocytosis 0 Tear Drop Cells 1+ Ovalocytes 1+ Ganesh Cells 1+ Sodium 142 Potassium 3.5 Chloride 113 H Carbon Dioxide 23 Anion Gap 6 L BUN 5.1 L Creatinine 0.5 L Est GFR (CKD-EPI)AfAm 155.90 Est GFR (CKD-EPI)NonAf 134.52 Random Glucose 89 Calcium 8.3 L Total Bilirubin 0.2 AST 86 H ALT 73 H Alkaline Phosphatase 115 Total Protein 6.4 Albumin 3.1 L Active Medications Generic Name Dose Route Start Last Admin Trade Name Freq PRN Reason Stop Dose Admin Docusate Sodium 100 mg 02/27/19 22:00 03/01/19 09:47 Colace - PO Not Given BID RAMANA Sodium Chloride 1,000 mls @ 100 mls/hr 02/27/19 02:45 02/28/19 17:27 Normal Saline - IV 100 mls/hr ASDIR RAMANA Administration Cefepime HCl 2 gm/ Dextrose 100 mls @ 200 mls/hr 02/28/19 18:00 03/01/19 09: 46 IVPB 200 mls/hr Q8H-IV RAMANA Administration Protocol Melatonin 3 mg 02/27/19 22:00 03/01/19 00:01 Melatonin PO 3 mg HS RAMANA Administration Methylnaltrexone [place] 12 mg 02/28/19 10:00 03/01/19 09:47 Relistor - SQ Not Given DAILY RAMANA Ondansetron HCl 8 mg 02/27/19 18:18 Zofran Odt - SL Q8H PRN NAUSEA Oxycodone HCl 5 mg 02/27/19 18:18 Roxicodone - PO Q6H PRN PAIN LEVEL 6-10 Polyethylene Glycol 17 gm 02/27/19 22:00 03/01/19 09:47 Miralax (For Daily Use) - PO Not Given BID RAMANA Senna 2 tab 02/27/19 22:00 02/28/19 22:15 Senna - PO 2 tab HS RAMANA Administration ASSESSMENT/PLAN: 1)Neutropenic Fever -Blood culture is positive for gram positive cocci in clusters in anareobic bottle -Cefepime 2 gram IV Q8H -Urine culture negative -STI panel pending -transvaginal U/S showed no acute pathology -Flu negative -NS @ 100 ml/hr -Heme/Onc consulted appreciate recs -ID consulted, appreciate recs 2)Hx of invasive ductal carcinoma of the breast with metastasis to the lung/ sternum -Last chemo on 02/16 -Oxycodone 5 mg PO Q6H -Methylnaltrexone 12 mg SQ Daily -Zofran 8mg Q8H PRN -Polyethylene Glycol 17 gram PO BID -Will follow up with [facility] [place] team for continued cancer care 3) Hyponatremia secondary to dehydration -Na was 132 on admission. 142 now 4) Hypokalema -Repleted 5)Thrombocytopenia -Likely due to recent chemotherapy -Will monitor F: NS @ 100 ml/hr E: Monitor BMP N: Neutropenic diet DVT Prophylaxis: SCDs Visit type - Emergency Visit Emergency Visit: Yes ED Registration Date: 02/26/19 Care time: The patient presented to the Emergency Department on the above date and was hospitalized for further evaluation of their emergent condition. - New Patient This patient is new to me today: No - Critical Care Critical Care patient: No ATTENDING PHYSICIAN STATEMENT I saw and evaluated the patient. I reviewed the resident's note and discussed the case with the resident. I agree with the resident's findings and plan as documented. SUBJECTIVE: OBJECTIVE: ASSESSMENT AND PLAN:
[2019-03-01] MEDS ORDERED: LIDOCAINE HCL 1%, 10 MG/ML (20ML VIAL) ONE (15:16)
--- NOTE | 2019-03-01 16:41 | PN ---
Teaching Attending Note Name of Resident: Maggi Moran ATTENDING PHYSICIAN STATEMENT I saw and evaluated the patient. I reviewed the resident's note and discussed the case with the resident. I agree with the resident's findings and plan as documented. SUBJECTIVE: Feels okay - no SOB/cough/sputum/hemoptysis. Dysuria improving. Some pelvic discomfort. No diarrhea. OBJECTIVE: Fever resolved Hemodynamically Stable. Last Vital Signs Temp Pulse Resp BP Pulse Ox 98.4 F 63 20 116/72 100 02/28/19 15:47 02/28/19 15:47 02/28/19 15:47 02/28/19 15:47 02/28/19 09:00 Heart - S1, S2, RRR Lungs - clear to auscultation Abdomen - soft, non-tender. Bowel Sounds normal. Extremities - no calf tenderness. Laboratory Results - last 24 hr 02/28/19 02/28/19 02/28/19 05:30 05:30 12:30 WBC 1.2 L* RBC 3.65 Hgb 10.8 Hct 31.4 L MCV 86.1 MCH 29.5 MCHC 34.2 RDW 13.5 Plt Count 25 L* MPV 7.1 L Sodium 139 Potassium 3.8 Chloride 110 H Carbon Dioxide 24 Anion Gap 5 L BUN 5.8 L Creatinine 0.7 Est GFR (CKD-EPI)AfAm 139.57 Est GFR (CKD-EPI)NonAf 120.42 Random Glucose 86 Calcium 8.2 L Magnesium 2.0 Influenza A (Rapid) Negative Influenza B (Rapid) Negative Current Medications Generic Name Dose Route Start Last Admin Trade Name Freq PRN Reason Stop Dose Admin Docusate Sodium 100 mg 02/27/19 22:00 02/28/19 10:32 Colace - PO Not Given BID RAMANA Sodium Chloride 1,000 mls @ 100 mls/hr 02/27/19 02:45 02/28/19 03:10 Normal Saline - IV 100 mls/hr ASDIR RAMANA Administration Cefepime HCl 2 gm/ Dextrose 100 mls @ 200 mls/hr 02/28/19 18:00 IVPB Q8H-IV RAMANA Protocol Melatonin 3 mg 02/27/19 22:00 02/27/19 22:22 Melatonin PO 3 mg HS RAMANA Administration Methylnaltrexone [place] 12 mg 02/28/19 10:00 02/28/19 10:32 Relistor - SQ Not Given DAILY RAMANA Ondansetron HCl 8 mg 02/27/19 18:18 Zofran Odt - SL Q8H PRN NAUSEA Oxycodone HCl 5 mg 02/27/19 18:18 Roxicodone - PO Q6H PRN PAIN LEVEL 6-10 Polyethylene Glycol 17 gm 02/27/19 22:00 02/28/19 10:32 Miralax (For Daily Use) - PO Not Given BID RAMANA Senna 2 tab 02/27/19 22:00 02/27/19 21:12 Senna - PO 2 tab HS RAMANA Administration ASSESSMENT/PLAN: 23 year old female with a past medical history of Asthma, Invasive Ductal Carcinoma of the Breast 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 [place] [facility] [place] last chemo on 02/16, complains of dysuria and malaise, found to have fever 102.8. Transvaginal U/S - no acute pathology 1. Neutropenic Fever, source unclear Blood Cx x 1 pos for gram pos cocci in clusters - coag neg, likely contaminant CXR - no acute findings. Reports pelvic discomfort and some dysuria but no vaginal discharge or pruritus. Urine Cx negative, Transvaginal US - no acute pathology GN/CH/Trich screen pending. Still Neutropenic. Continue Cefepime. Vancomycin discontinued by ID. 2. Hyponatremia sec to dehydration - resolved. 3. Hypokalemia - repleted. 4. Severe Thrombocytopenia sec to recent Chemotherapy for metastatic Breast Ca - no bruising/bleeding - will monitor. 5. Metastatic Breast Cancer (Lung, Bone) - [place] [facility] [place]Gemcit[place]. Day 14 of current cycle. Oncology for further recommendations re: need for Neupogen. DVT Px - SCDs. Heparin held due to Thrombocytopenia.
[2019-03-01] MEDS ORDERED: TBO-FILGRASTIM 300 MCG/0.5 ML DISP.SYRINGE SQ ONE (18:09)
[2019-03-01] MEDS: SODIUM CHLORIDE 1,000 ML IV SCH (21:19)
[2019-03-01] MEDS: SENNOSIDES 8.6MG TABLET (FP) PO SCH (21:24)
[2019-03-02] MEDS: CEFEPIME 2 GM in DEXTROSE 5%-WATER - 100 ML IVPB SCH ×3 (01:52→17:18)
--- NOTE | 2019-03-02 05:20 | PN ---
Progress Note (short form) - Note Progress Note: Patient seen and examined Feels well. Denies any complaints AFVSS Cor: RSR, No murmurs, No gallops Lungs: Clear to P&A Abd: Soft, Normal bowel sounds, No organomegaly Ext:No significant edema Labs/Meds reviewed A/P 23 y/o patient with metastatic triple negative breast cancer , s/p gemzar/ carboplatin D14 of carboplatin /gemzar ---unsure which cycle, [place] [facility] [place] 10/30 with similar picture neutropenia. fevers resolved delayed terri will dose granix 300mcg sc today 03/01 on cefepime emprically 02/26 --04/01 blood cx --coag negative staph--? contaminant monitor cbc
[2019-03-02 08:23] LABS: BASO % 0.1 % (0-2.0); EOS % 4.5 % (0-4.5); HEMATOCRIT 28.3 % (32.4-45.2); HEMOGLOBIN 9.8 GM/dL (10.7-15.3); LYMPH % 68.5 % (8-40); MCH 29.7 pg (25.7-33.7); MCHC 34.8 g/dl (32.0-36.0); MEAN CELL VOLUME 85.5 fl (80-96); MEAN PLT VOLUME 8.2 fl (7.5-11.1); MONO % 17.1 % (3.8-10.2); NEUT % 9.8 % (42.8-82.8); RBC 3.31 M/mm3 (3.60-5.2); RDW 13.2 % (11.6-15.6)
[2019-03-02 08:41] LABS: PLATELET COUNT 23 K/MM3 (134-434); WHITE BLOOD COUNT 1.3 K/mm3 (4.0-10.0)
[2019-03-02 08:55] LABS: BLOOD UREA NITROGEN 4.3 mg/dL (7-18); CALCIUM 8.1 mg/dL (8.5-10.1); CREATININE 0.6 mg/dL (0.55-1.3); POTASSIUM 3.6 mmol/L (3.5-5.1)
[2019-03-02] MEDS ORDERED: PT OWN MED DRAWER 7, Y5N ONE ×2 (09:00→16:57)
[2019-03-02] MEDS: SODIUM CHLORIDE 1,000 ML IV SCH (09:39)
[2019-03-02] MEDS: POLYETHYLENE GLYCOL 3350 119 GM BTL PO SCH ×2 (09:40→22:05)
[2019-03-02] MEDS: Methylnaltrexone Bromide 12 MG/0.6 ML KIT SQ SCH (09:40)
[2019-03-02] MEDS: DOCUSATE SODIUM 100 MG CAPSULE (FP) PO SCH ×2 (09:41→22:05)
[2019-03-02 11:59] LABS: PLATELET ESTIMATE DECREASED
--- NOTE | 2019-03-02 14:50 | PN ---
Physical Exam: SUBJECTIVE: Patient seen and examined in the morning. No acute events overnight. No abdominal pain, no chest pain, no shortness of breath, no nausea, vomiting, diarrhea. OBJECTIVE: Vital Signs Period Temp Pulse Resp BP Sys/Mendoza Pulse Ox Last 24 Hr 97.8 F-98.8 F 55-68 16-18 101-120/50-85 100 GENERAL: The patient is awake, alert, and fully oriented, in no acute distress. HEAD: Normal with no signs of trauma. EYES: PERRL, extraocular movements intact, sclera anicteric, conjunctiva clear. No ptosis. NECK: Trachea midline, full range of motion, supple. LUNGS: Breath sounds equal, clear to auscultation bilaterally, no wheezes HEART: Regular rate and rhythm, S1, S2 without murmur, rub or gallop. ABDOMEN: Soft, nontender, nondistended, normoactive bowel sounds EXTREMITIES: 2+ pulses, warm, well-perfused, no edema. NEUROLOGICAL: Cranial nerves II through XII grossly intact. PSYCH: Normal mood, normal affect. Laboratory Results - last 24 hr 02/26/19 03/02/19 03/02/19 18:51 07:33 07:33 WBC 1.3 L* RBC 3.31 L Hgb 9.8 L Hct 28.3 L MCV 85.5 MCH 29.7 MCHC 34.8 RDW 13.2 Plt Count 23 L* MPV 8.2 Absolute Neuts (auto) 0.1 L Neutrophils % 9.8 L Neutrophils % (Manual) 13.7 L Band Neutrophils % 0.0 Lymphocytes % 68.5 H Lymphocytes % (Manual) 63.3 H Monocytes % 17.1 H Monocytes % (Manual) 15 H D Eosinophils % 4.5 Eosinophils % (Manual) 1.7 Basophils % 0.1 Basophils % (Manual) 0.0 Myelocytes % (Man) 0 Promyelocytes % (Man) 0 Blast Cells % (Manual) 0 Nucleated RBC % 0 Metamyelocytes 0 Platelet Estimate Decreased Schistocytes 1+ Sodium 142 Potassium 3.6 Chloride 114 H Carbon Dioxide 23 Anion Gap 6 L BUN 4.3 L Creatinine 0.6 Est GFR (CKD-EPI)AfAm 146.83 Est GFR (CKD-EPI)NonAf 126.68 Random Glucose 82 Calcium 8.1 L C. trachomatis (OSKAR) Negative N.gonorrhoeae DNA (OSKAR) Negative T. vaginalis (OSKAR) Negative Active Medications Generic Name Dose Route Start Last Admin Trade Name Freq PRN Reason Stop Dose Admin Docusate Sodium 100 mg 02/27/19 22:00 03/02/19 09:41 Colace - PO Not Given BID RAMANA Sodium Chloride 1,000 mls @ 100 mls/hr 02/27/19 02:45 03/02/19 09:39 Normal Saline - IV 100 mls/hr ASDIR RAMANA Administration Cefepime HCl 2 gm/ Dextrose 100 mls @ 200 mls/hr 02/28/19 18:00 03/02/19 09: 36 IVPB 200 mls/hr Q8H-IV RAMANA Administration Protocol Melatonin 3 mg 02/27/19 22:00 03/01/19 21:32 Melatonin PO Not Given HS RAMANA Methylnaltrexone [place] 12 mg 02/28/19 10:00 03/02/19 09:40 Relistor - SQ Not Given DAILY RAMANA Ondansetron HCl 8 mg 02/27/19 18:18 Zofran Odt - SL Q8H PRN NAUSEA Oxycodone HCl 5 mg 02/27/19 18:18 Roxicodone - PO Q6H PRN PAIN LEVEL 6-10 Polyethylene Glycol 17 gm 02/27/19 22:00 03/02/19 09:40 Miralax (For Daily Use) - PO Not Given BID RAMANA Senna 2 tab 02/27/19 22:00 03/01/19 21:24 Senna - PO Not Given HS [facility] ASSESSMENT/PLAN: 1)Neutropenic Fever -Blood culture is positive for gram positive cocci in clusters in anareobic bottle -Cefepime 2 gram IV Q8H -Urine culture negative -STI panel negative -transvaginal U/S showed no acute pathology -Flu negative -NS @ 100 ml/hr -Heme/Onc consulted appreciate recs -ID consulted, appreciate recs 2)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 142 now 4) Hypokalema -Repleted 5)Pancytopenia -Granix 300 mcg given -Likely due to recent chemotherapy -Will monitor F: NS @ 100 ml/hr E: Monitor BMP N: Neutropenic diet DVT Prophylaxis: SCDs Dispo: Possible d/c tomorrow depending on symptom alleviation. Visit type - Emergency Visit Emergency Visit: Yes ED Registration Date: 02/26/19 Care time: The patient presented to the Emergency Department on the above date and was hospitalized for further evaluation of their emergent condition. - New Patient This patient is new to me today: No - Critical Care Critical Care patient: No ATTENDING PHYSICIAN STATEMENT I saw and evaluated the patient. I reviewed the resident's note and discussed the case with the resident. I agree with the resident's findings and plan as documented. SUBJECTIVE: OBJECTIVE: ASSESSMENT AND PLAN:
--- NOTE | 2019-03-02 15:11 | PN ---
Teaching Attending Note Name of Resident: Maggi Moarn ATTENDING PHYSICIAN STATEMENT I saw and evaluated the patient. I reviewed the resident's note and discussed the case with the resident. I agree with the resident's findings and plan as documented. SUBJECTIVE: Patient has no complaints. OBJECTIVE: Vital Signs Period Temp Pulse Resp BP Sys/Mendoza Pulse Ox Last 24 Hr 97.8 F-98.8 F 55-68 16-18 101-120/50-85 100 HEART: S1S2, RRR LUNGS: Clear ABDOMEN: Soft, non-tender, non-distended, normal BS EXTREMITIES: No edema Laboratory Results - last 24 hr 02/26/19 03/02/19 03/02/19 18:51 07:33 07:33 WBC 1.3 L* RBC 3.31 L Hgb 9.8 L Hct 28.3 L MCV 85.5 MCH 29.7 MCHC 34.8 RDW 13.2 Plt Count 23 L* MPV 8.2 Absolute Neuts (auto) 0.1 L Neutrophils % 9.8 L Neutrophils % (Manual) 13.7 L Band Neutrophils % 0.0 Lymphocytes % 68.5 H Lymphocytes % (Manual) 63.3 H Monocytes % 17.1 H Monocytes % (Manual) 15 H D Eosinophils % 4.5 Eosinophils % (Manual) 1.7 Basophils % 0.1 Basophils % (Manual) 0.0 Myelocytes % (Man) 0 Promyelocytes % (Man) 0 Blast Cells % (Manual) 0 Nucleated RBC % 0 Metamyelocytes 0 Platelet Estimate Decreased Schistocytes 1+ Sodium 142 Potassium 3.6 Chloride 114 H Carbon Dioxide 23 Anion Gap 6 L BUN 4.3 L Creatinine 0.6 Est GFR (CKD-EPI)AfAm 146.83 Est GFR (CKD-EPI)NonAf 126.68 Random Glucose 82 Calcium 8.1 L C. trachomatis (OSKAR) Negative N.gonorrhoeae DNA (OSKAR) Negative T. vaginalis (OSKAR) Negative Current Medications Generic Name Dose Route Start Last Admin Trade Name Freq PRN Reason Stop Dose Admin Docusate Sodium 100 mg 02/27/19 22:00 03/02/19 09:41 Colace - PO Not Given BID RAMANA Sodium Chloride 1,000 mls @ 100 mls/hr 02/27/19 02:45 03/02/19 09:39 Normal Saline - IV 100 mls/hr ASDIR RAMANA Administration Cefepime HCl 2 gm/ Dextrose 100 mls @ 200 mls/hr 02/28/19 18:00 03/02/19 09: 36 IVPB 200 mls/hr Q8H-IV RAMANA Administration Protocol Melatonin 3 mg 02/27/19 22:00 03/01/19 21:32 Melatonin PO Not Given HS RAMANA Methylnaltrexone [place] 12 mg 02/28/19 10:00 03/02/19 09:40 Relistor - SQ Not Given DAILY RAMANA Ondansetron HCl 8 mg 02/27/19 18:18 Zofran Odt - SL Q8H PRN NAUSEA Oxycodone HCl 5 mg 02/27/19 18:18 Roxicodone - PO Q6H PRN PAIN LEVEL 6-10 Polyethylene Glycol 17 gm 02/27/19 22:00 03/02/19 09:40 Miralax (For Daily Use) - PO Not Given BID RAMANA Senna 2 tab 02/27/19 22:00 03/01/19 21:24 Senna - PO Not Given HS RAMANA ASSESSMENT AND PLAN: 23 year old female with a past medical history of Asthma, Invasive Ductal Carcinoma of the Breast 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 (undergoing treatment at [facility] [place] last chemo on 02/16, complains of dysuria and malaise, found to have fever 102.8. 1. Neutropenic sepsis (fever, tachycardia, WBC 3.0) - Source unclear at this time - 1 of 2 blood cultures growing Staph epi, likely contaminant - Urine culture negative - Chlamydia, N. gonorrhea, Trichomonas, influenza A/B all negative - Fever, tachycardia improved - Still neutropenic - Continue empiric Cefepime 2. Hyponatremia - Improved 3. Hypokalemia - Improved 4. Pancytopenia secondary to chemo - s/p Granix - Remains neutropenic - Continue to monitor CBC 5. Breast cancer with lung, bone metastases - Currently receiving Carboplatin, Gemzar at [facility] [place] (last dose 02/16)
--- NOTE | 2019-03-02 19:24 | PN ---
Progress Note (short form) - Note Progress Note: Patient seen and examined No fever, rigors. Minimal dysuria. No headache, cough, sputum, some diarrhea. Last Vital Signs Temp Pulse Resp BP Pulse Ox 98.4 F 59 L 18 116/74 100 03/02/19 18:57 03/02/19 18:57 03/02/19 18:57 03/02/19 18:57 03/01/19 21:00 HEENT: LEONORA, EOM Intact Oropharynx: No thrush, No mucositis Cor: RSR, No murmurs, No gallops Lungs: Clear to P&A Abd: Soft, Normal bowel sounds, No organomegaly Ext:No significant edema Skin: No rashes, Integument intact CBC, BMP 03/02/19 07:33 03/02/19 07:33 Current Medications Generic Name Dose Route Start Last Admin Trade Name Freq PRN Reason Stop Dose Admin Docusate Sodium 100 mg 02/27/19 22:00 03/02/19 09:41 Colace - PO Not Given BID RAMANA Sodium Chloride 1,000 mls @ 100 mls/hr 02/27/19 02:45 03/02/19 09:39 Normal Saline - IV 100 mls/hr ASDIR RAMANA Administration Cefepime HCl 2 gm/ Dextrose 100 mls @ 200 mls/hr 02/28/19 18:00 03/02/19 17: 18 IVPB 200 mls/hr Q8H-IV RAMANA Administration Protocol Melatonin 3 mg 02/27/19 22:00 03/01/19 21:32 Melatonin PO Not Given HS RAMANA Methylnaltrexone [place] 12 mg 02/28/19 10:00 03/02/19 09:40 Relistor - SQ Not Given DAILY RAMANA Ondansetron HCl 8 mg 02/27/19 18:18 Zofran Odt - SL Q8H PRN NAUSEA Oxycodone HCl 5 mg 02/27/19 18:18 Roxicodone - PO Q6H PRN PAIN LEVEL 6-10 Polyethylene Glycol 17 gm 02/27/19 22:00 03/02/19 09:40 Miralax (For Daily Use) - PO Not Given BID RAMANA Senna 2 tab 02/27/19 22:00 03/01/19 21:24 Senna - PO Not Given HS RAMANA Impression: Neutropenic fevers - on cefipime Triple negative breast ca Pancytopenia Give additional granix No platelets unless bleeding or further fall in platelet count. Monitor cbc granix.
[2019-03-02] MEDS: TBO-FILGRASTIM 300 MCG/0.5 ML DISP.SYRINGE SQ SCH (22:04)
[2019-03-02] MEDS: SENNOSIDES 8.6MG TABLET (FP) PO SCH (22:05)
[2019-03-02] MEDS: MELATONIN 1 MG TABLET PO SCH (22:09)
[2019-03-03] MEDS: CEFEPIME 2 GM in DEXTROSE 5%-WATER - 100 ML IVPB SCH ×3 (02:21→17:15)
[2019-03-03] MEDS: SODIUM CHLORIDE 1,000 ML IV SCH (04:22)
[2019-03-03 07:50] LABS: BASO % 0.1 % (0-2.0); EOS % 4.1 % (0-4.5); HEMOGLOBIN 9.8 GM/dL (10.7-15.3); LYMPH % 60.4 % (8-40); MCH 29.7 pg (25.7-33.7); MEAN CELL VOLUME 84.8 fl (80-96); MEAN PLT VOLUME 8.4 fl (7.5-11.1); MONO % 18.8 % (3.8-10.2); NEUT % 16.6 % (42.8-82.8); RDW 12.9 % (11.6-15.6)
[2019-03-03 08:18] LABS: PLATELET COUNT 26 K/MM3 (134-434); WHITE BLOOD COUNT 1.8 K/mm3 (4.0-10.0)
[2019-03-03 08:19] LABS: BLOOD UREA NITROGEN 4.7 mg/dL (7-18); CALCIUM 8.6 mg/dL (8.5-10.1); CREATININE 0.5 mg/dL (0.55-1.3); POTASSIUM 3.5 mmol/L (3.5-5.1)
[2019-03-03 11:15] LABS: ANISOCYTOSIS 2+; MACROCYTOSIS 0; PLATELET ESTIMATE DECREASED
[2019-03-03] MEDS: DOCUSATE SODIUM 100 MG CAPSULE (FP) PO SCH ×2 (12:36→23:54)
[2019-03-03] MEDS: Methylnaltrexone Bromide 12 MG/0.6 ML KIT SQ SCH (12:36)
[2019-03-03] MEDS: POLYETHYLENE GLYCOL 3350 119 GM BTL PO SCH ×2 (12:36→23:55)
[2019-03-03] MEDS: TBO-FILGRASTIM 300 MCG/0.5 ML DISP.SYRINGE SQ SCH (13:46)
[2019-03-03] MEDS ORDERED: TBO-FILGRASTIM 300 MCG/0.5 ML DISP.SYRINGE SQ ONE (14:13)
[2019-03-03] MEDS ORDERED: PT OWN MED DRAWER 7, Y5N ONE (16:39)
--- NOTE | 2019-03-03 17:36 | PN ---
Teaching Attending Note Name of Resident: Maggi Moran ATTENDING PHYSICIAN STATEMENT I saw and evaluated the patient. I reviewed the resident's note and discussed the case with the resident. I agree with the resident's findings and plan as documented with exceptions below. SUBJECTIVE: Patient seen and examined. Dysuria improved, no further fevers, suprapubic or back pain. OBJECTIVE: Vital Signs Period Temp Pulse Resp BP Sys/Mendoza Pulse Ox Last 24 Hr 98.2 F-98.8 F 55-92 16-18 110-159/64-82 98 Intake & Output 02/28/19 03/01/19 03/02/19 03/03/19 23:59 23:59 23:59 23:59 Intake Total 1250 2100 2500 900 Balance 1250 2100 2500 900 Weight 140 lb General: sitting in bed in no acute distress Chest: CTAb, no rales or wheezing Abdomen:soft, Nt, no suprapubic or CVA tenderness Extremities: no edema Active Medications Docusate Sodium (Colace -) 100 mg PO BID [facility] Last Admin: 03/03/19 12:36 Dose: Not Given Sodium Chloride (Normal Saline -) 1,000 mls @ 100 mls/hr IV ASDIR [facility] Last Admin: 03/03/19 04:22 Dose: Not Given Cefepime HCl 2 gm/ Dextrose 100 mls @ 200 mls/hr IVPB Q8H-IV RAMANA; Protocol Last Admin: 03/03/19 17:15 Dose: 200 mls/hr Melatonin (Melatonin) 3 mg PO HS [facility] Last Admin: 03/02/19 22:09 Dose: Not Given Methylnaltrexone [place] (Relistor -) 12 mg SQ DAILY [facility] Last Admin: 03/03/19 12:36 Dose: Not Given Nicotine (Nicoderm Patch -) 7 mg TD DAILY [facility] Ondansetron HCl (Zofran Odt -) 8 mg SL Q8H PRN PRN Reason: NAUSEA Oxycodone HCl (Roxicodone -) 5 mg PO Q6H PRN PRN Reason: PAIN LEVEL 6-10 Polyethylene Glycol (Miralax (For Daily Use) -) 17 gm PO BID [facility] Last Admin: 03/03/19 12:36 Dose: Not Given Senna (Senna -) [address] [facility] Last Admin: 03/02/19 22:05 Dose: Not Given Tbo-Filgrastim (Granix -) 300 mcg SQ DAILY RAMANA Last Admin: 03/03/19 13:46 Dose: 300 mcg Laboratory Results - last 24 hr 03/03/19 03/03/19 06:35 06:35 WBC 1.8 L* RBC 3.30 L Hgb 9.8 L Hct 28.0 L MCV 84.8 MCH 29.7 MCHC 35.0 RDW 12.9 Plt Count 26 L* MPV 8.4 Absolute Neuts (auto) 0.3 L Neutrophils % 16.6 L D Neutrophils % (Manual) 12.0 L Band Neutrophils % 9.0 Lymphocytes % 60.4 H Lymphocytes % (Manual) 58.0 H Monocytes % 18.8 H Monocytes % (Manual) 16 H Eosinophils % 4.1 Eosinophils % (Manual) 5.0 H D Basophils % 0.1 Basophils % (Manual) 0.0 Myelocytes % (Man) 0 Promyelocytes % (Man) 0 Blast Cells % (Manual) 0 Nucleated RBC % 0 Metamyelocytes 0 Hypochromia 0 Platelet Estimate Decreased Platelet Comment Present Polychromasia 0 Poikilocytosis 2+ Anisocytosis 2+ Microcytosis 2+ Macrocytosis 0 Acanthocytes (Spur) 1+ Schistocytes 2+ Sodium 141 Potassium 3.5 Chloride 112 H Carbon Dioxide 23 Anion Gap 6 L BUN 4.7 L Creatinine 0.5 L Est GFR (CKD-EPI)AfAm 155.90 Est GFR (CKD-EPI)NonAf 134.52 Random Glucose 81 Calcium 8.6 Microbiology 02/26/19 18:00 Blood - Peripheral Venous Blood Culture - Preliminary NO GROWTH OBTAINED AFTER 96 HOURS, INCUBATION TO CONTINUE FOR 1 DAYS. 02/26/19 18:26 Blood - Peripheral Venous Blood Culture - Final Staphylococcus Epidermidis 02/26/19 18:26 Urine - Urine Clean Catch Urine Culture - Final NO GROWTH OBTAINED ASSESSMENT AND PLAN: 23 year old female with a past medical history of Asthma, Invasive Ductal Carcinoma of the Breast 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 (undergoing treatment at [facility] [place]), last chemo on 02/16, complains of dysuria and malaise, found to have fever 102.8. -Neutropenic sepsis, ?due to UTI -Pancytopenia, suspect from chemotherapy -1/2 Staph epidermidis bacteremia, suspected contaminant -Hyponatremia -Hypokalemia -Metastatic Breast Cancer to lung/bone Plan: Urinary symptoms on presentation, improved now. Urine cx neg. Additional w/u including Chlamydia/N gonorrhea/Trichomonas/Influenza A/B neg. Fevers resolved, WBC stable today. Emperic Cefepime per ID. Oncology input noted. on Granix. tranfuse platelets prn. replete K prn. Currently on Carboplatin/Gemzar at [facility] [place] (last dose 02/16) DVTPPX SCDs Dispo in 24-48 hours if no new concerns pending ID/oncology input Discussed with patient and nursing.
--- NOTE | 2019-03-03 17:37 | PN ---
Physical Exam: SUBJECTIVE: Patient seen and examined in the morning. No acute events overnight. No complaints of chest pain, shortness of breath, no abdominal pain, no flank pain, no dysuria, no hematuria, no fevers or chills. OBJECTIVE: Vital Signs Period Temp Pulse Resp BP Sys/Mendoza Pulse Ox Last 24 Hr 98.2 F-98.8 F 55-92 16-18 110-159/64-82 98 GENERAL: The patient is awake, alert, and fully oriented, in no acute distress. HEAD: Normal with no signs of trauma. EYES: PERRL, extraocular movements intact, sclera anicteric, conjunctiva clear. No ptosis. NECK: Trachea midline, full range of motion, supple. LUNGS: Breath sounds equal, clear to auscultation bilaterally, no wheezes HEART: Regular rate and rhythm, S1, S2 without murmur, rub or gallop. ABDOMEN: Soft, nontender, nondistended, normoactive bowel sounds EXTREMITIES: 2+ pulses, warm, well-perfused, no edema. NEUROLOGICAL: Cranial nerves II through XII grossly intact. PSYCH: Normal mood, normal affect. Laboratory Results - last 24 hr 03/03/19 03/03/19 06:35 06:35 WBC 1.8 L* RBC 3.30 L Hgb 9.8 L Hct 28.0 L MCV 84.8 MCH 29.7 MCHC 35.0 RDW 12.9 Plt Count 26 L* MPV 8.4 Absolute Neuts (auto) 0.3 L Neutrophils % 16.6 L D Neutrophils % (Manual) 12.0 L Band Neutrophils % 9.0 Lymphocytes % 60.4 H Lymphocytes % (Manual) 58.0 H Monocytes % 18.8 H Monocytes % (Manual) 16 H Eosinophils % 4.1 Eosinophils % (Manual) 5.0 H D Basophils % 0.1 Basophils % (Manual) 0.0 Myelocytes % (Man) 0 Promyelocytes % (Man) 0 Blast Cells % (Manual) 0 Nucleated RBC % 0 Metamyelocytes 0 Hypochromia 0 Platelet Estimate Decreased Platelet Comment Present Polychromasia 0 Poikilocytosis 2+ Anisocytosis 2+ Microcytosis 2+ Macrocytosis 0 Acanthocytes (Spur) 1+ Schistocytes 2+ Sodium 141 Potassium 3.5 Chloride 112 H Carbon Dioxide 23 Anion Gap 6 L BUN 4.7 L Creatinine 0.5 L Est GFR (CKD-EPI)AfAm 155.90 Est GFR (CKD-EPI)NonAf 134.52 Random Glucose 81 Calcium 8.6 Active Medications Generic Name Dose Route Start Last Admin Trade Name Freq PRN Reason Stop Dose Admin Docusate Sodium 100 mg 02/27/19 22:00 03/03/19 12:36 Colace - PO Not Given BID [facility] Sodium Chloride 1,000 mls @ 100 mls/hr 02/27/19 02:45 03/03/19 04:22 Normal Saline - IV Not Given ASDIR RAMANA Cefepime HCl 2 gm/ Dextrose 100 mls @ 200 mls/hr 02/28/19 18:00 03/03/19 17: 15 IVPB 200 mls/hr Q8H-IV RAMANA Administration Protocol Melatonin 3 mg 02/27/19 22:00 03/02/19 22:09 Melatonin PO Not Given HS RAMANA Methylnaltrexone [place] 12 mg 02/28/19 10:00 03/03/19 12:36 Relistor - SQ Not Given DAILY [facility] Nicotine 7 mg 03/03/19 17:30 Nicoderm Patch - TD DAILY [facility] Ondansetron HCl 8 mg 02/27/19 18:18 Zofran Odt - SL Q8H PRN NAUSEA Oxycodone HCl 5 mg 02/27/19 18:18 Roxicodone - PO Q6H PRN PAIN LEVEL 6-10 Polyethylene Glycol 17 gm 02/27/19 22:00 03/03/19 12:36 Miralax (For Daily Use) - PO Not Given BID [facility] Senna 2 tab 02/27/19 22:00 03/02/19 22:05 Senna - PO Not Given HS [facility] Tbo-Filgrastim 300 mcg 03/02/19 19:30 03/03/19 13:46 Granix - SQ 300 mcg DAILY RAMANA Administration ASSESSMENT/PLAN: 1)Neutropenic Fever -Blood culture is positive for gram positive cocci in clusters in anareobic bottle -Cefepime 2 gram IV Q8H -Urine culture negative -STI panel negative -transvaginal U/S showed no acute pathology -Flu negative -NS @ 100 ml/hr -Heme/Onc consulted appreciate recs -ID consulted, appreciate recs 2)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 142 now 4) Hypokalema -Repleted 5)Pancytopenia -Granix 300 mcg given -Likely due to recent chemotherapy -Will monitor F: NS @ 100 ml/hr E: Monitor BMP N: Neutropenic diet DVT Prophylaxis: SCDs Dispo: Possible d/c tomorrow depending on symptom alleviation. Visit type - Emergency Visit Emergency Visit: Yes ED Registration Date: 02/26/19 Care time: The patient presented to the Emergency Department on the above date and was hospitalized for further evaluation of their emergent condition. - New Patient This patient is new to me today: No - Critical Care Critical Care patient: No ATTENDING PHYSICIAN STATEMENT I saw and evaluated the patient. I reviewed the resident's note and discussed the case with the resident. I agree with the resident's findings and plan as documented. SUBJECTIVE: OBJECTIVE: ASSESSMENT AND PLAN:
[2019-03-03] MEDS: NICOTINE 7 MG/24 HOURS TOPICAL PATCH TD SCH (17:50)
--- NOTE | 2019-03-03 21:59 | PN ---
Progress Note (short form) - Note Progress Note: Patient seen and examined c/o headaches Last Vital Signs Temp Pulse Resp BP Pulse Ox 98.2 F 99 H 18 147/80 97 03/03/19 19:54 03/03/19 19:54 03/03/19 19:54 03/03/19 19:54 03/03/19 09:00 Cor: RSR, No murmurs, No gallops Lungs: Clear to P&A Abd: Soft, Normal bowel sounds, No organomegaly Ext:No significant edema Labs/Meds reviewed A/P 23 y/o patient with metastatic triple negative breast cancer , s/p gemzar/ carboplatin D14 of carboplatin /gemzar ---unsure which cycle, has been getting it intermittently since 10/16 at [facility]. Was admitted 10/30 with similar picture neutropenia. fevers resolved delayed terri on granix on cefepime emprically 02/26 --1 blood cx --coag negative staph--? contaminant monitor cbc headaches --? due to granix
[2019-03-03] MEDS ORDERED: IBUPROFEN 600 MG TABLET (FP) PO ONE (22:44)
[2019-03-03] MEDS: MELATONIN 1 MG TABLET PO SCH (23:54)
[2019-03-03] MEDS: SENNOSIDES 8.6MG TABLET (FP) PO SCH (23:55)
[2019-03-04] MEDS ORDERED: PT OWN MED DRAWER 7, Y5N ONE (02:19)
[2019-03-04] MEDS: CEFEPIME 2 GM in DEXTROSE 5%-WATER - 100 ML IVPB SCH ×2 (02:23→11:30)
[2019-03-04] MEDS: SODIUM CHLORIDE 1,000 ML IV SCH ×2 (03:44→12:27)
[2019-03-04 07:31] LABS: BASO % 0.1 % (0-2.0); EOS % 2.5 % (0-4.5); HEMOGLOBIN 9.5 GM/dL (10.7-15.3); LYMPH % 43.8 % (8-40); MCH 29.7 pg (25.7-33.7); MCHC 35.2 g/dl (32.0-36.0); MEAN CELL VOLUME 84.3 fl (80-96); MEAN PLT VOLUME 7.8 fl (7.5-11.1); MONO % 17.5 % (3.8-10.2); NEUT % 36.1 % (42.8-82.8); RDW 13.1 % (11.6-15.6); WHITE BLOOD COUNT 2.7 K/mm3 (4.0-10.0)
[2019-03-04 07:37] LABS: PLATELET COUNT 28 K/MM3 (134-434)
[2019-03-04 07:54] LABS: BLOOD UREA NITROGEN 7.8 mg/dL (7-18); CALCIUM 8.4 mg/dL (8.5-10.1); CREATININE 0.5 mg/dL (0.55-1.3); POTASSIUM 3.3 mmol/L (3.5-5.1)
[2019-03-04 10:45] LABS: ANISOCYTOSIS 1+; MACROCYTOSIS 0; OVALOCYTE 1+; PLATELET ESTIMATE DECREASED
[2019-03-04] MEDS: POLYETHYLENE GLYCOL 3350 119 GM BTL PO SCH (11:30)
[2019-03-04] MEDS: Methylnaltrexone Bromide 12 MG/0.6 ML KIT SQ SCH (11:30)
[2019-03-04] MEDS: NICOTINE 7 MG/24 HOURS TOPICAL PATCH TD SCH (11:30)
[2019-03-04] MEDS: DOCUSATE SODIUM 100 MG CAPSULE (FP) PO SCH (11:30)
[2019-03-04] MEDS ORDERED: POTASSIUM CHLORIDE TABS 20 MEQ TABLET.ER (FP) PO ONE (11:53)
--- NOTE | 2019-03-04 14:04 | PN ---
Teaching Attending Note Name of Resident: Maggi Moran ATTENDING PHYSICIAN STATEMENT I saw and evaluated the patient. I reviewed the resident's note and discussed the case with the resident. I agree with the resident's findings and plan as documented with exceptions below. SUBJECTIVE: Patient seen and examined, denies any fevers, chills or urinary symptoms. Feels well, tolerating po. OBJECTIVE: Vital Signs Period Temp Pulse Resp BP Sys/Mendoza Pulse Ox Last 24 Hr 97.8 F-98.8 F 55-99 17-18 108-147/64-80 98-99 Intake & Output 03/01/19 03/02/19 03/03/19 03/04/19 23:59 23:59 23:59 23:59 Intake Total 2100 2500 1300 Balance 2100 2500 1300 General: sitting in bed, no acute distress Neck: soft, supple Chest: CTAB, no rales or wheezing Abdomen:Soft, NT throughout, no CVA or suprapubic tenderness Extremities: no edema Home Medications Medication Instructions Recorded Cefuroxime Axetil [Ceftin -] 250 mg PO BID 3 Days #6 tablet 03/04/19 LORazepam [Lorazepam] 1 mg PO TID PRN 03/04/19 Ondansetron HCl 8 mg PO TID PRN 03/04/19 Oxycodone HCl/Acetaminophen 1 tablet PO Q6H PRN 03/04/19 [Oxycodone-Acetaminophen 5-325] Active Medications Docusate Sodium (Colace -) 100 mg PO BID [facility] Last Admin: 03/04/19 11:30 Dose: Not Given Sodium Chloride (Normal Saline -) 1,000 mls @ 100 mls/hr IV ASDIR RAMANA Last Admin: 03/04/19 12:27 Dose: 100 mls/hr Cefepime HCl 2 gm/ Dextrose 100 mls @ 200 mls/hr IVPB Q8H-IV RAMANA; Protocol Last Admin: 03/04/19 11:30 Dose: 200 mls/hr Melatonin (Melatonin) 3 mg PO HS [facility] Last Admin: 03/03/19 23:54 Dose: 3 mg Methylnaltrexone [place] (Relistor -) 12 mg SQ DAILY RAMANA Last Admin: 03/04/19 11:30 Dose: Not Given Nicotine (Nicoderm Patch -) 7 mg TD DAILY [facility] Last Admin: 12/05/19 11:30 Dose: 7 mg Ondansetron HCl (Zofran Odt -) 8 mg SL Q8H PRN PRN Reason: NAUSEA Oxycodone HCl (Roxicodone -) 5 mg PO Q6H PRN PRN Reason: PAIN LEVEL 6-10 Last Admin: 03/03/19 20:13 Dose: 5 mg Polyethylene Glycol (Miralax (For Daily Use) -) 17 gm PO BID [facility] Last Admin: 03/04/19 11:30 Dose: Not Given Senna (Senna -) 2 tab PO HS [facility] Last Admin: 03/03/19 23:55 Dose: Not Given Laboratory Results - last 24 hr 03/04/19 03/04/19 06:15 06:15 WBC 2.7 L RBC 3.20 L Hgb 9.5 L Hct 27.0 L MCV 84.3 MCH 29.7 MCHC 35.2 RDW 13.1 Plt Count 28 L* MPV 7.8 Absolute Neuts (auto) 1.0 L Neutrophils % 36.1 L D Neutrophils % (Manual) 29.3 L Band Neutrophils % 10.1 Lymphocytes % 43.8 H D Lymphocytes % (Manual) 37.4 D Monocytes % 17.5 H Monocytes % (Manual) 19 H Eosinophils % 2.5 Eosinophils % (Manual) 2.0 Basophils % 0.1 Basophils % (Manual) 0.0 Myelocytes % (Man) 0 Promyelocytes % (Man) 0 Blast Cells % (Manual) 0 Nucleated RBC % 0 Metamyelocytes 0 Hypochromia 0 Platelet Estimate Decreased Polychromasia 0 Poikilocytosis 2+ Anisocytosis 1+ Microcytosis 1+ Macrocytosis 0 Ovalocytes 1+ Acanthocytes (Spur) 1+ Schistocytes 2+ Sodium 140 Potassium 3.3 L Chloride 110 H Carbon Dioxide 24 Anion Gap 6 L BUN 7.8 Creatinine 0.5 L Est GFR (CKD-EPI)AfAm 155.90 Est GFR (CKD-EPI)NonAf 134.52 Random Glucose 80 Calcium 8.4 L ASSESSMENT AND PLAN: 23 year old female with a past medical history of Asthma, Invasive Ductal Carcinoma of the Breast 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 (undergoing treatment at [facility] [place] last chemo on 02/16, complains of dysuria and malaise, found to have fever 102.8. -Neutropenic sepsis, ?due to UTI -Pancytopenia, suspect from chemotherapy -1/2 Staph epidermidis bacteremia, suspected contaminant -Hyponatremia -Hypokalemia -Metastatic Breast Cancer to lung/bone Plan: afebrile CBC improved no evidence of bleed Oncology input noted discussed with dr jaimes, ceftin for additional 3 days dc home with outpatient follow up at [facility] [place]. Discussed with patient, all questions answered.
[2019-03-04 14:37] VITALS: BP 121/66; PULSE 62; TEMP 98
--- NOTE | 2019-03-04 16:56 | DS ---
Physical Exam: SUBJECTIVE: Patient seen and examined in the morning. No acute events overnight. Patient has no complaints of chest pain, shortness of breath, nausea , vomiting, diarrhea, dysuria, hematuria or increased urinary frequency. OBJECTIVE: Vital Signs Period Temp Pulse Resp BP Sys/Mendoza Pulse Ox Last 24 Hr 97.8 F-98.2 F 55-99 17-18 108-147/66-80 98-99 PHYSICAL EXAM GENERAL: The patient is awake, alert, and fully oriented, in no acute distress. HEAD: Normal with no signs of trauma. EYES: PERRL, extraocular movements intact, sclera anicteric, conjunctiva clear. ENT: Ears normal, nares patent, oropharynx clear without exudates, moist mucous membranes. NECK: Trachea midline, full range of motion, supple. LUNGS: Breath sounds equal, clear to auscultation bilaterally, no wheezes, no crackles, no accessory muscle use. HEART: Regular rate and rhythm, S1, S2 without murmur, rub or gallop. ABDOMEN: Soft, nontender, nondistended, normoactive bowel sounds, no guarding, no rebound, no hepatosplenomegaly, no masses. EXTREMITIES: 2+ pulses, warm, well-perfused, no edema. NEUROLOGICAL: Cranial nerves II through XII grossly intact LABS Laboratory Results - last 24 hr 03/04/19 03/04/19 06:15 06:15 WBC 2.7 L RBC 3.20 L Hgb 9.5 L Hct 27.0 L MCV 84.3 MCH 29.7 MCHC 35.2 RDW 13.1 Plt Count 28 L* MPV 7.8 Absolute Neuts (auto) 1.0 L Neutrophils % 36.1 L D Neutrophils % (Manual) 29.3 L Band Neutrophils % 10.1 Lymphocytes % 43.8 H D Lymphocytes % (Manual) 37.4 D Monocytes % 17.5 H Monocytes % (Manual) 19 H Eosinophils % 2.5 Eosinophils % (Manual) 2.0 Basophils % 0.1 Basophils % (Manual) 0.0 Myelocytes % (Man) 0 Promyelocytes % (Man) 0 Blast Cells % (Manual) 0 Nucleated RBC % 0 Metamyelocytes 0 Hypochromia 0 Platelet Estimate Decreased Polychromasia 0 Poikilocytosis 2+ Anisocytosis 1+ Microcytosis 1+ Macrocytosis 0 Ovalocytes 1+ Acanthocytes (Spur) 1+ Schistocytes 2+ Sodium 140 Potassium 3.3 L Chloride 110 H Carbon Dioxide 24 Anion Gap 6 L BUN 7.8 Creatinine 0.5 L Est GFR (CKD-EPI)AfAm 155.90 Est GFR (CKD-EPI)NonAf 134.52 Random Glucose 80 Calcium 8.4 L Microbiology 03/04/19 05:45 Stool Clostridioides difficile Antigen - Final 03/04/19 05:45 Stool Clostridioides difficile Toxin Assay - Final 02/26/19 18:00 Blood - Peripheral Venous Blood Culture - Final NO GROWTH AFTER 5 DAYS INCUBATION 02/26/19 18:26 Blood - Peripheral Venous Blood Culture - Final Staphylococcus Epidermidis 02/26/19 18:26 Urine - Urine Clean Catch Urine Culture - Final NO GROWTH OBTAINED HOSPITAL COURSE: Date of Admission:02/26/19 Date of Discharge: 03/04/19 23 F with PMH of 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 Was treated for pyelonephritis and neutropenic fever. Patient was initially given keflex, vancomycin, and ceftriaxone. Patient was then transitioned to cefepime IV, and completed 5 day course of IV antibiotics. Patient will complete 3 day course of Ceftin 250 mg PO BID as outpatient. Patient was thrombocytopenic and neutropenic during admission. Received two doses of granix and saw increase in WBC. Patient was advised to follow up with outpatient oncologist within 2-3 days,and to immediately return to the ED if she has bleeding that fails to stop. Patient was still thrombocytopenic on discharge. Patient's blood culture positive for staphylococcus epidermidis was ruled to be contaminant. Patient was discharged on home medications and antibiotics. Patient was advised on smoking cessation during admission as patient needed nicotine patch. Imaging done this admission: Chest X-Ray: 2 views of the chest have been submitted. There are well aerated lungs with no sign of infiltrate or failure, normal mediastinum and sharp angles. The bones and soft tissues are intact. There is a vague nodular density at the right base. A CT scan from 2018 showed multiple lung nodules along with a left breast mass. Correlation recommended. A follow-up CT scan may be of help. No other nodules are visualized. Transvaginal U/S: No sonographic evidence of abscess formation. The ovaries appear unremarkable. No gross adnexal pathology is identified. A small amount of free fluid is seen within the cul-de-sac. Minutes to complete discharge: 30 Discharge Summary Problems reviewed: Yes Reason For Visit: URINARY TRACT INFECTION,FEVER Condition: Improved - Instructions Diet, Activity, Other Instructions: You were admitted to the hospital because you had a UTI shortly after finishing your chemo regimen. You were treated with IV antibiotics for 5 days here, and your urinary tract infection symptoms have been relieved. You are stable for discharge. MEDICATIONS: We made the following addition to your medication regimen: Please START taking Ceftin 250 mg twice a day for 3 more days. Your last day will be on Thursday, March 07, 2019. You may continue taking the rest of your home medications as prescribed. Ensure to maintain adequate bowel regimen and high fiber diet while on pain medications. REFERRALS: Please follow up with your oncologist, Dr. Yang as an outpatient in 2-3 days of discharge and ensure to have follow up blood work (CBC) in 2-3 days. . Please follow up with your primary care doctor. If you do not have one you can follow with us in our clinic. We have included a referral with this packet. cautious to avoid cuts and scrapes and if any bleeding, that fails to stop, call 911 or come to ED rightaway. If you experience persistent fever/chills, worsening abdominal pain, chest pain , or other feelings of unwellness, please call 911 or proceed to your nearest emergency room immediately. Referrals: Isaac Howard MD [Other] - 1 Week [facility] [place] [Provider Group] - 1 Week Disposition: HOME - Home Medications Comprehensive Discharge Medication List: Ambulatory Orders Cefuroxime Axetil [Ceftin -] 250 mg PO BID 3 Days #6 tablet 03/04/19 Docusate Sodium [Colace -] 100 mg PO BID capsule 03/04/19 LORazepam [Lorazepam] 1 mg PO TID PRN 03/04/19 Ondansetron HCl 8 mg PO TID PRN 03/04/19 Oxycodone HCl/Acetaminophen [Oxycodone-Acetaminophen 5-325] 1 tablet PO Q6H PRN 03/04/19 Polyethylene Glycol 3350 [Miralax 119 gm Btl -] 17 gm PO BID PRN bottle This patient is new to me today: No Emergency Visit: Yes ED Registration Date: 02/26/19 Care time: The patient presented to the Emergency Department on the above date and was hospitalized for further evaluation of their emergent condition. Critical Care patient: No - Discharge Referral Referred to [facility] No ATTENDING PHYSICIAN STATEMENT I saw and evaluated the patient. I reviewed the resident's note and discussed the case with the resident. I agree with the resident's findings and plan as documented. SUBJECTIVE: OBJECTIVE: ASSESSMENT AND PLAN:
== END 2019-03-04 15:21 | disposition home or self-care (01) | DRG 660 ==
LOC: JER 16:05 → JERBED 22:17 → J7W 02-27 14:39
PROVIDERS: ADMIT Internal Medicine; ATTEND Hospitalist
DX: D61.810 Antineoplastic chemotherapy induced pancytopenia (principal); E87.6 Hypokalemia; N39.0 Urinary tract infection, site not specified; E87.1 Hypo-osmolality and hyponatremia; D72.819 Decreased white blood cell count, unspecified; C50.919 Malignant neoplasm of unspecified site of unspecified female breast; A41.89 Other specified sepsis; C78.00 Secondary malignant neoplasm of unspecified lung; C79.51 Secondary malignant neoplasm of bone; E86.0 Dehydration; R00.0 Tachycardia, unspecified; D69.6 Thrombocytopenia, unspecified
CPT/HCPCS: 36415; 71046-TC-FY; 76830-TC; 80048; 80053; 81003; 83605; 83735; 84703; 85025; 85027; 87040; 87086; 87186; 87324; 87449; 87491; 87591; 87661; 87804; 99284-25; J0131; J1447; J7030